=== PATIENT | female | born 1970 | race African-American/Black ===

== ENCOUNTER 2021-05-22 18:10 | Inpatient (IN) | payer MEDICAID, SELFPAY ==
--- NOTE | ~2021-05-22 | CT_ITS ---
EXAMINATION: CT ANGIOGRAM OF THE CHEST WITH AND WITHOUT CONTRAST (CT PULMONARY ANGIOGRAM FOR PE) CLINICAL INFORMATION: Syncopal episode. Shortness of breath. COMPARISON: None. TECHNIQUE: Prior to contrast administration, noncontrast localization images were obtained. Subsequently, multidetector volumetric imaging was performed from the thoracic inlet to below the diaphragms following the administration of 65 mL Isovue-300 intravenous contrast. No contrast reaction reported Sagittal, coronal, and MIP oblique sagittal reformatted images were obtained on the CT workstation, uploaded to PACS, and reviewed. This CT examination was performed using dose optimization techniques as appropriate, variously including the following: *Automated exposure control *Adjustment of mA and/or kV according to patient size (this includes techniques or standardized protocols for targeted exams where dose is matched to indication/reason for exam; i.e. extremities or head) *Use of iterative reconstruction technique Total exam dose-length product 309 mGy-cm FINDINGS: QUALITY OF STUDY/CONTRAST BOLUS: Satisfactory. PULMONARY ARTERIES: There are subtle segmental filling defects in the right lower lobe as identified for example on images 317, 298 and 272 of series 7. No central pulmonary emboli. THORACIC AORTA: No aneurysm or dissection. LUNG: There are multifocal groundglass opacities. For example as visualized in the right upper lobe on images 191, 210 and 215 of series 7. There are denser airspace opacities in the right lung base on image 345 of series 7. There are several areas of bronchial wall thickening with intrabronchial mucous secretions. There is mild paraseptal and centrilobular emphysema. A 3 mm pulmonary nodule in the right upper lobe on image 126 of series 7 appears to be intrabronchial and likely related with an area of mucus impaction. PLEURA: No pleural effusion or pneumothorax. MEDIASTINUM: Normal heart size. No pericardial effusion. Indeterminate soft tissue fullness in the anterior mediastinum, likely residual thymic tissue. No hilar or mediastinal lymphadenopathy. No evidence of septal bowing or right heart strain. CHEST WALL/AXILLA: No axillary or internal mammary lymphadenopathy. OSSEOUS STRUCTURES: No acute or suspicious osseous abnormality. UPPER ABDOMEN: Unremarkable. No reflux of contrast into the hepatic veins to suggest elevated right heart pressures. CT/CT angio chest PE protocol IMPRESSION: Multifocal airspace opacities predominantly involving the right lung with bronchial wall thickening and mucus impaction. These findings are concerning for a multifocal infectious or inflammatory process of the lungs with extension into the small airways. Subtle segmental pulmonary emboli in the right lower lobe. Mild centrilobular and paraseptal emphysema. VTE: positive This critical result was discussed with Shyam ZHANG at 05/22/2021 10:34 PM and it was ascertained that the content and urgency of the report was understood at the time of direct communication.
--- NOTE | ~2021-05-22 | XR_ITS ---
EXAMINATION: XR CHEST CLINICAL INFORMATION: Cough for one week with green phlegm COMPARISON: None TECHNIQUE: Frontal view of the chest was obtained. FINDINGS: No significant abnormality is noted involving the heart, lungs, mediastinum, bony thorax or soft tissues. IVC filter in abdomen. XR/XR chest 1V IMPRESSION: Unremarkable examination.
--- NOTE | ~2021-05-22 | US_ITS ---
EXAMINATION: US PELVIS CLINICAL INFORMATION: Check IUD placement COMPARISON: None TECHNIQUE: Transabdominal pelvic ultrasound was performed. Patient declined transvaginal exam. FINDINGS: The uterus is anteverted and measures 9.2 x 3.9 x 5.1 cm in dimension. No focal uterine lesion is seen. There is an IUD in the uterus in satisfactory position. Endometrial thickness is normal measuring 0.5 cm. The ovaries are normal-appearing. The right ovary measures 2.8 x 2.1 x 2.6 cm. The left ovary measures 3.2 x 1.5 x 2.9 cm. There is no fluid in the pelvis. US/US pelvic complete IMPRESSION: IUD in the uterus in satisfactory position.
--- NOTE | ~2021-05-22 | CT_ITS ---
EXAMINATION: CT HEAD WITHOUT CONTRAST CT CERVICAL SPINE WITHOUT CONTRAST CLINICAL INFORMATION: Syncopal episode heating head. Patient is on blood thinners. COMPARISON: No similar priors. TECHNIQUE: Contiguous axial imaging was performed from the skull base to vertex without intravenous administration of contrast. Contiguous axial imaging was performed from the upper chest through the skull base without intravenous administration of contrast. Coronal and sagittal reformats were obtained at the acquisition workstation. This CT examination was performed using dose optimization techniques as appropriate, variously including the following: *Automated exposure control *Adjustment of mA and/or kV according to patient size (this includes techniques or standardized protocols for targeted exams where dose is matched to indication/reason for exam; i.e. extremities or head) *Use of iterative reconstruction technique DLP: 291 mGy-cm FINDINGS: Head: There is no evidence of acute intracranial hemorrhage or edematous territorial infarction. There is no abnormal attenuation within the brain parenchyma. Hubbard-white matter differentiation is preserved. The ventricles are normal in size and configuration. No evidence for obstructive hydrocephalus. No abnormal mass effect or midline shift. No extra-axial fluid collections. There is a very small contusion in the left frontoparietal scalp on image 59 series 3, likely related with the site of injury. No acute osseous abnormalities. The mastoid air cells and paranasal sinuses are clear. Cervical Spine: The atlantooccipital and atlantoaxial articulations remain well aligned. Straightening of the normal cervical lordosis. Otherwise, there is anatomic alignment of the vertebral bodies and posterior elements. No evidence of acute fracture or subluxation. The vertebral body heights and disc spaces are maintained. There is mild disc space narrowing with prominent anterior osteophytes at C5, C6 and C7. There is no prevertebral soft tissue swelling. The thyroid gland and remaining cervical soft tissues are normal in appearance. The lung apices demonstrate no abnormalities. CT/CT cervical spine wo con IMPRESSION: No acute intracranial pathology. No acute cervical spinal traumatic sequela.
[2021-05-22 18:18] VITALS: BP 141/92; PULSE 84; RESP 18; TEMP 36.7; O2SAT 96; BMI 25.0
--- NOTE | 2021-05-22 18:42 | ECG_ITS ---
Test Reason : SYNCOPE Blood Pressure : / mmHG Vent. Rate : 074 BPM Atrial Rate : 074 BPM P-R Int : 156 ms QRS Dur : 076 ms QT Int : 390 ms P-R-T Axes : 074 066 054 degrees QTc Int : 432 ms Normal sinus rhythm Possible Left atrial enlargement Borderline ECG No previous ECGs available Referred By: Shyam Mcguire Electronically Signed By:KATARINA HAMM MD
--- NOTE | 2021-05-22 18:55 | ED.SYNCOPE ---
HPI - Syncope General Chief Complaint: Syncope Stated Complaint: near syncope Time Seen by Provider: 05/22/21 19:37 Source: patient Mode of arrival: ambulatory Limitations: no limitations History of Present Illness HPI narrative: 50-year-old male with past medical history of protein S deficiency, multiple PEs, has a Ernesto IVC filter due to multiple PEs, also taking Xarelto blood thinners, presents to ED for syncopal episode. Patient patien is from [facility] and had syncopal episode. Patient states she had bilateral methodist pain, chest pain, .fell, and than woke up to individuals looking at her. Patient denies any abdominal pain. Patient on complain for posterior head pain. Patient states also coughing for 1 week with green phlegm. Related Data Allergies Allergy/AdvReac Type Severity Reaction Status Date / Time No Known Allergies Allergy Verified 05/22/21 18:42 Review of Systems Review of Systems: Yes all other systems are reviewed and are negative Constitutional: Constitutional: Reports as per HPI, Reports no additional constitutional complaints and Reports headache(s) (Posterior head pain) Eyes: Eyes: Reports as per HPI and Reports no additional eye complaints ENT: Reports system reviewed and no additional complaints, except as documented, Reports as per HPI and Reports headache(s) (Posterior head pain) Cardiovascular: Cardiovascular: Reports as per HPI and Reports no additional cardiovascular complaints Respiratory: Respiratory: Reports as per HPI and Reports no additional respiratory complaints Gastrointestinal: Gastrointestinal: Reports as per HPI and Reports no additional gastrointestinal complaints Genitourinary: Genitourinary: Reports no additional female genitourinary complaints and Reports as per HPI Musculoskeletal: Musculoskeletal: Reports no additional musculoskeletal complaints and Reports as per HPI Neurologic: Reports system reviewed and no additional complaints, except as documented, Reports as per HPI and Reports headache(s) (Posterior head pain) Psychiatric: Psychiatric: Reports no additional psychiatric complaints and Reports as per HPI PMF Past Medical History Medical History (Updated 05/22/21 @ 23:55 by LEATHA Shine) GERD (gastroesophageal reflux disease) HIV (human immunodeficiency virus infection) HTN (hypertension) Surgical History (Updated 05/22/21 @ 18:20 by Venecia Schroeder) Previous section Social History Social History Advance Directives: No Advance Directives Information Provided: Yes Patient : No Physical Exam Vital Signs: Vital Signs: Last Vital Signs Temp 97.8 F 05/22/21 22:41 Pulse 76 05/22/21 22:41 Resp 18 05/22/21 22:41 BP 140/101 H 05/22/21 22:41 Pulse Ox 100 05/22/21 22:41 Body Mass Index 25.0 Const: General: cooperative, healthy appearing, comfortable, no acute distress, well developed, alert, awake and Physically active Orientation/consciousness: patient oriented x3 HENMT: Head: Yes normal to inspection, Yes No palpable skull fracture present, Yes normocephalic and Yes atraumatic Head images: 1. Tenderness on palpation. Negative for any hematoma, ecchymosis, laceration, or bleeding. Eyes: General: appearance normal, both eyes and all related structures Neck: Neck: Yes normal visual inspection, Yes full ROM, Yes no lymphadenopathy, Yes no meningeal signs, Yes trachea midline, Yes supple and No tender Chest: Chest palpation & inspection: normal inspection of the chest and normal palpation of entire chest wall Resp: Effort & Inspection: normal respiratory effort and able to speak in complete sentences Auscultation: clear to auscultation bilaterally Cardio: Jugular venous distension: no JVD Heart sounds: S1 normal heart sound present and S2 normal heart sound present GI: Inspection: Yes normal to inspection and No abdominal wall ecchymosis Palpation (GI): Soft to palpation, not firm, nontender, no guarding and not rigid : General: No CVA tenderness and Yes no CVA tenderness Back/Spine/Pelvis: Back: no CVA tenderness, No CVA tenderness and No back tenderness Skin: General skin exam: no rashes or lesions noted and elasticity normal Neuro: General: patient oriented x3, gait normal, no meningeal signs and CN's II-XI intact bilaterally Cranial nerves: Yes CN's II-XII intact bilaterally Extrem: Other: Extremity negative for swelling, pitting edema, or calf tenderness General: Yes normal to inspection and Yes full ROM Psych: Appearance: grossly normal, well kempt and not disheveled Course Course Course Narrative: Patient have imaging head and neck and cardiac enzyme gluten EKG. Reevaluation(s) Reevaluation #1: Due to history of protein S deficiency although patient has IVC filter and is on blood thinner she could still get a blood clot. Will try to get IV access for CTA Time: 20:35 Reevaluation #2: Patient refused further attempts at IV access for CTA. Doctors Dian want to speak to patient's try to convince her to alarms to put a testicular jugular vein IV access but patient refused. Patient educated possibility of from pulmonary embolus is a possibility of failed IV see filter and felt thrombolysis but patient refused. Patient willing to sign against medical advice. Patient refused admission Time: 20:36 Reevaluation #3: Patient changed her mind is agreeable with chest CTA. Positive for IV access. Additional Reevaluation(s): Patient admitted to the hospital for pneumonia and right-sided PE. Case discussed with Dr. Matthews recommend patient received antibiotics and Lovenox. MDM - Syncope MDM Narrative Medical decision making narrative: Syncope Lab Data Result diagrams: 05/22/21 19:40 05/22/21 19:40 Labs: Lab Results 05/22/21 05/22/21 05/22/21 Range/Units 19:40 19:40 19:40 WBC 3.6 L (4.8-10.8) X10*3/uL RBC 4.06 L (4.20-5.50) X10*6/uL Hgb 13.3 (12.0-16.0) g/dl Hct 39.2 (37.0-47.0) % MCV 96.6 (80.0-98.0) fL MCH 32.8 (27.0-33.0) pg MCHC 33.9 (31.0-35.0) g/dl RDW 11.8 (11.0-16.0) % Plt Count 288 (160-400) X10*3/uL MPV 10.3 (9.4-12.3) fL Immature Gran % (Auto) 0.3 (0.0-0.4) % Neut % (Auto) 30.5 L (45-73) % Lymph % (Auto) 59.9 H (20-40) % [place] % (Auto) 7.0 (2-11) % Eos % (Auto) 1.7 (0-4) % Baso % (Auto) 0.6 (0-2) % Lymph # (Auto) 2.2 (1.2-4.9) X10*3/uL [place] # (Auto) 0.3 (0.1-1.2) X10*3/uL Eos # (Auto) 0.1 (0.0-0.4) X10*3/uL Baso # (Auto) 0.0 (0.0-0.2) X10*3/uL Abs Immat Gran (auto) 0.01 (0.00-0.03) X10*3/uL Absolute Neuts (auto) 1.1 L (2.0-8.3) x10*3/uL Absolute Nucleated RBC 0.000 (0.0-0.012) X10*3/uL Nucleated RBC % (auto) 0.0 (0.0-0.2) /100WBC PT (9.9-13.0) SEC INR (0.9-1.1) APTT (24.1-38.0) SEC Sodium 138 (135-145) mmol/L Potassium 4.7 (3.3-5.1) mmol/L Chloride 99 (96-108) mmol/L Carbon Dioxide 32 H (22-29) mmol/L Anion Gap 12 (12-20) BUN 17 H (9-16) mg/dL Creatinine 1.07 (0.5-1.4) mg/dL Estim Creat Clear Calc 74.1 Estimated GFR 55 Random Glucose 89 (60-115) mg/dL Lactic Acid (0.5-2.0) mmol/L Calcium 9.6 (8.4-10.2) mg/dL Total Bilirubin 0.2 (0.0-1.0) mg/dL AST 19 (5-31) U/L ALT 19 (0-31) U/L Alkaline Phosphatase 85 (39-117) U/L Troponin I High Sens < 3.5 (<3.5-17.0) ng/L B-Natriuretic Peptide < 10 (<100) pg/mL Total Protein 9.2 H (6.5-8.0) g/dL Albumin 4.3 (3.5-5.0) g/dL COVID-19 (GONSALO) (Negative) COVID-19 Clin Com S. pyogenes GrpA ALTAGRACIA (Negative) 05/22/21 05/22/21 05/22/21 Range/Units 19:40 19:40 20:54 WBC (4.8-10.8) X10*3/uL RBC (4.20-5.50) X10*6/uL Hgb (12.0-16.0) g/dl Hct (37.0-47.0) % MCV (80.0-98.0) fL MCH (27.0-33.0) pg MCHC (31.0-35.0) g/dl RDW (11.0-16.0) % Plt Count (160-400) X10*3/uL MPV (9.4-12.3) fL Immature Gran % (Auto) (0.0-0.4) % Neut % (Auto) (45-73) % Lymph % (Auto) (20-40) % [place] % (Auto) (2-11) % Eos % (Auto) (0-4) % Baso % (Auto) (0-2) % Lymph # (Auto) (1.2-4.9) X10*3/uL [place] # (Auto) (0.1-1.2) X10*3/uL Eos # (Auto) (0.0-0.4) X10*3/uL Baso # (Auto) (0.0-0.2) X10*3/uL Abs Immat Gran (auto) (0.00-0.03) X10*3/uL Absolute Neuts (auto) (2.0-8.3) x10*3/uL Absolute Nucleated RBC (0.0-0.012) X10*3/uL Nucleated RBC % (auto) (0.0-0.2) /100WBC PT 12.0 (9.9-13.0) SEC INR 1.1 (0.9-1.1) APTT 40.1 H (24.1-38.0) SEC Sodium (135-145) mmol/L Potassium (3.3-5.1) mmol/L Chloride (96-108) mmol/L Carbon Dioxide (22-29) mmol/L Anion Gap (12-20) BUN (9-16) mg/dL Creatinine (0.5-1.4) mg/dL Estim Creat Clear Calc Estimated GFR Random Glucose (60-115) mg/dL Lactic Acid (0.5-2.0) mmol/L Calcium (8.4-10.2) mg/dL Total Bilirubin (0.0-1.0) mg/dL AST (5-31) U/L ALT (0-31) U/L Alkaline Phosphatase (39-117) U/L Troponin I High Sens (<3.5-17.0) ng/L B-Natriuretic Peptide (<100) pg/mL Total Protein (6.5-8.0) g/dL Albumin (3.5-5.0) g/dL COVID-19 (GONSALO) Negative (Negative) COVID-19 Clin Com See Note S. pyogenes GrpA ALTAGRACIA Negative (Negative) 05/22/21 Range/Units 23:13 WBC (4.8-10.8) X10*3/uL RBC (4.20-5.50) X10*6/uL Hgb (12.0-16.0) g/dl Hct (37.0-47.0) % MCV (80.0-98.0) fL MCH (27.0-33.0) pg MCHC (31.0-35.0) g/dl RDW (11.0-16.0) % Plt Count (160-400) X10*3/uL MPV (9.4-12.3) fL Immature Gran % (Auto) (0.0-0.4) % Neut % (Auto) (45-73) % Lymph % (Auto) (20-40) % [place] % (Auto) (2-11) % Eos % (Auto) (0-4) % Baso % (Auto) (0-2) % Lymph # (Auto) (1.2-4.9) X10*3/uL [place] # (Auto) (0.1-1.2) X10*3/uL Eos # (Auto) (0.0-0.4) X10*3/uL Baso # (Auto) (0.0-0.2) X10*3/uL Abs Immat Gran (auto) (0.00-0.03) X10*3/uL Absolute Neuts (auto) (2.0-8.3) x10*3/uL Absolute Nucleated RBC (0.0-0.012) X10*3/uL Nucleated RBC % (auto) (0.0-0.2) /100WBC PT (9.9-13.0) SEC INR (0.9-1.1) APTT (24.1-38.0) SEC Sodium (135-145) mmol/L Potassium (3.3-5.1) mmol/L Chloride (96-108) mmol/L Carbon Dioxide (22-29) mmol/L Anion Gap (12-20) BUN (9-16) mg/dL Creatinine (0.5-1.4) mg/dL Estim Creat Clear Calc Estimated GFR Random Glucose (60-115) mg/dL Lactic Acid 0.5 (0.5-2.0) mmol/L Calcium (8.4-10.2) mg/dL Total Bilirubin (0.0-1.0) mg/dL AST (5-31) U/L ALT (0-31) U/L Alkaline Phosphatase (39-117) U/L Troponin I High Sens (<3.5-17.0) ng/L B-Natriuretic Peptide (<100) pg/mL Total Protein (6.5-8.0) g/dL Albumin (3.5-5.0) g/dL COVID-19 (GONSALO) (Negative) COVID-19 Clin Com S. pyogenes GrpA ALTAGRACIA (Negative) ECG Data Interpretation: Normal sinus rhythm. Ventricular rate 74. Pr interval 156. QRS 76. QTC 432. Negative STEMI Critical Care Time Critical Care Time Critical Care Time: Yes Total Critical Care Time: 60 Attestation: Positive PE. Positive pneumonia. Case discussed with hospitalist. Lovenox and antibiotics ordered. Patient to be admitted Discharge Plan Discharge Clinical Impression: Syncope Qualifiers: Syncope type: unspecified Qualified Code(s): R55 - Syncope and collapse Patient Disposition: Admitted As Inpatient
[2021-05-22 19:45] LABS: MANUAL DIFF FLAG NO
[2021-05-22 19:46] LABS: Basophils Percent Auto 0.6 % (0-2); Eosinophils Absolute Auto 0.1 X10*3/uL (0.0-0.4); Eosinophils Percent Auto 1.7 % (0-4); Hematocrit 39.2 % (37.0-47.0); Hemoglobin 13.3 g/dl (12.0-16.0); Imm Gran Abs Auto 0.01 X10*3/uL (0.00-0.03); Imm Gran Pct Auto 0.3 % (0.0-0.4); Lymphocytes Absolute Auto 2.2 X10*3/uL (1.2-4.9); Lymphocytes Percent Auto 59.9 % (20-40); Mean Corpuscular HGB Conc 33.9 g/dl (31.0-35.0); Mean Corpuscular Hemoglobin 32.8 pg (27.0-33.0); Mean Corpuscular Volume 96.6 fL (80.0-98.0); Mean Platelet Volume 10.3 fL (9.4-12.3); Monocytes Absolute Auto 0.3 X10*3/uL (0.1-1.2); Neutrophils Absolute Auto 1.1 x10*3/uL (2.0-8.3); Neutrophils Percent Auto 30.5 % (45-73); Platelet Count 288 X10*3/uL (160-400); Red Blood Count 4.06 X10*6/uL (4.20-5.50); Red Cell Distribution Width 11.8 % (11.0-16.0); White Blood Count 3.6 X10*3/uL (4.8-10.8)
[2021-05-22 19:51] LABS: INTERNATIONAL NORM RATIO 1.1 (0.9-1.1)
[2021-05-22 19:54] LABS: Partial Thromboplastin Time 40.1 SEC (24.1-38.0)
[2021-05-22 20:00] LABS: COVID-19 Test Negative (Negative)
[2021-05-22 20:06] LABS: Alanine Aminotransferase 19 U/L (0-31); Albumin Level 4.3 g/dL (3.5-5.0); Alkaline Phosphatase 85 U/L (39-117); Anion Gap 12 (12-20); Aspartate Amino Transferase 19 U/L (5-31); B Type Natriuretic Peptide < 10 pg/mL (<100); Bilirubin Total 0.2 mg/dL (0.0-1.0); Blood Urea Nitrogen 17 mg/dL (9-16); Calcium 9.6 mg/dL (8.4-10.2); Carbon Dioxide 32 mmol/L (22-29); Chloride 99 mmol/L (96-108); Creatinine Clr Calc Pharmacy 74.1; Estimated Glomerular Filt Rate 55; Glucose Random 89 mg/dL (60-115); Potassium 4.7 mmol/L (3.3-5.1); Sodium 138 mmol/L (135-145); Total Protein 9.2 g/dL (6.5-8.0); Troponin-I High Sensitivity < 3.5 ng/L (<3.5-17.0)
[2021-05-22 21:05] LABS: IDNOW Serial# 9DD0AD1C; Strep A Nucleic Acid Negative (Negative)
[2021-05-22] MEDS: iohexoL 350 MG/ML 100 ML INFUS..BTL IV (21:52)
[2021-05-22 22:41] VITALS: BP 140/101; PULSE 76; RESP 18; TEMP 36.6; O2SAT 100
[2021-05-22] MEDS: LORazepam 1 MG TABLET PO (23:12)
--- NOTE | 2021-05-22 23:19 | PC.NURSE ---
Since I arrived the pt has been alert and oriented x 3, resting in hallway recliner with C-collar applied (until cleared by kiah foster). The pt has required being mvoed into a room in order to obtain ultrasound guided peripheral IV access in order to perform CTA. The pt initially refused to allow staff too attempt to place an IV and planned to sign out AMA. She eventually allowed us to try and peripheral IV via ultrasound was placed and CTA has been performed. the pt has been informed that she has PE and pneumonia and will require hospital admission. She has been tearful in response to this news. Ativan has been given and pt is currently resitng in [facility] recliner awaiting bed assignment.
--- NOTE | 2021-05-22 23:24 | P.HPHOSP_ITS ---
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 Patient reported that she has been feeling low and stressed; she went to the psychiatric place where suddenly felt chest discomfort/headache and fainted and fell onto her back and hit her head. denies any seizure-like activity. Episode lasted for few seconds. Denies any tongue bite or stool incontinence. Patient reports that she has been having cough with greenish to yellow sputum production for past 1 week; complains of chest discomfort with no associated symptoms. Patient currently denies any chest pain or palpitations. Denies any urinary symptoms. Denies any nausea vomiting diarrhea. Patient reports that she has been compliant with her home medications. she has IVC filter placed in the past. Of note patient reports that she was recently admitted to the [facility] on [facility] for a week because she was unable to walk and mentioned that all the tests came back negative. Currently denies any symptoms of unable to walk/neurological deficits. Review of all other systems is negative except mentioned above ER course: Per ER team patient's CT chest showed multifocal pneumonia/right segmental pulmonary embolism. Given antibiotics. EKG nonischemic. CT head and CT cervical spine showed no acute findings. Admitted for further management. [facility] Medical History (Updated 05/22/21 @ 23:55 by LEATHA Shine) GERD (gastroesophageal reflux disease) HIV (human immunodeficiency virus infection) HTN (hypertension) Pertinent family history: reviewed Surgical History (Updated 05/22/21 @ 18:20 by Venecia Schroeder) Previous section Social History Advance Directives: No Advance Directives Information Provided: Yes Patient : No Meds Allergies Allergy/AdvReac Type Severity Reaction Status Date / Time No Known Allergies Allergy Verified 05/22/21 18:42 Active Medications: Current Medications Azithromycin 500 mg/ Sodium (Chloride) 250 mls @ 125 mls/hr IV ONCE ONE Stop: 05/23/21 00:43 Physical Exam Vital Signs and Narrative: Vital Signs: Last Vital Signs Temp 97.8 F 05/22/21 22:41 Pulse 76 05/22/21 22:41 Resp 18 05/22/21 22:41 BP 140/101 H 05/22/21 22:41 Pulse Ox 100 05/22/21 22:41 Body Mass Index 25.0 Results Labs CBC and Chem 7: 05/23/21 00:08 05/22/21 19:40 Labs: Laboratory Results - last 24 hr 05/22/21 05/22/21 05/22/21 19:40 19:40 19:40 MCV 96.6 MCH 32.8 MCHC 33.9 RDW 11.8 Plt Count 288 MPV 10.3 Immature Gran % (Auto) 0.3 Neut % (Auto) 30.5 L Lymph % (Auto) 59.9 H [place] % (Auto) 7.0 Eos % (Auto) 1.7 Baso % (Auto) 0.6 Lymph # (Auto) 2.2 [place] # (Auto) 0.3 Eos # (Auto) 0.1 Baso # (Auto) 0.0 Abs Immat Gran (auto) 0.01 Absolute Neuts (auto) 1.1 L Absolute Nucleated RBC 0.000 Nucleated RBC % (auto) 0.0 PT INR APTT Anion Gap 12 Estim Creat Clear Calc 74.1 Estimated GFR 55 Random Glucose 89 Calcium 9.6 Total Bilirubin 0.2 AST 19 ALT 19 Alkaline Phosphatase 85 Troponin I High Sens < 3.5 B-Natriuretic Peptide < 10 Total Protein 9.2 H Albumin 4.3 COVID-19 (GONSALO) COVID-19 Clin Com S. pyogenes GrpA ALTAGRACIA 05/22/21 05/22/21 05/22/21 19:40 19:40 20:54 MCV MCH MCHC RDW Plt Count MPV Immature Gran % (Auto) Neut % (Auto) Lymph % (Auto) [place] % (Auto) Eos % (Auto) Baso % (Auto) Lymph # (Auto) [place] # (Auto) Eos # (Auto) Baso # (Auto) Abs Immat Gran (auto) Absolute Neuts (auto) Absolute Nucleated RBC Nucleated RBC % (auto) PT 12.0 INR 1.1 APTT 40.1 H Anion Gap Estim Creat Clear Calc Estimated GFR Random Glucose Calcium Total Bilirubin AST ALT Alkaline Phosphatase Troponin I High Sens B-Natriuretic Peptide Total Protein Albumin COVID-19 (GONSALO) Negative COVID-19 Clin Com See Note S. pyogenes GrpA ALTAGRACIA Negative Imaging Radiologist's Impressions: Impressions Cervical Spine CT 05/22/21 18:42 IMPRESSION: No acute intracranial pathology. No acute cervical spinal traumatic sequela. Chest X-Ray 05/22/21 18:42 IMPRESSION: Unremarkable examination. Head CT 05/22/21 18:42 IMPRESSION: No acute intracranial pathology. No acute cervical spinal traumatic sequela. Chest CTA 05/22/21 21:07 IMPRESSION: Multifocal airspace opacities predominantly involving the right lung with bronchial wall thickening and mucus impaction. These findings are concerning for a multifocal infectious or inflammatory process of the lungs with extension into the small airways. Subtle segmental pulmonary emboli in the right lower lobe. Mild centrilobular and paraseptal emphysema. VTE: positive This critical result was discussed with Shyam ZHANG at 05/22/2021 10:34 PM and it was ascertained that the content and urgency of the report was understood at the time of direct communication. 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 Syncope: CT head and CT cervical spine showed no acute findings; exam nonfocal. Echocardiogram Telemetry Cycle cardiac enzymes Fall precautions Orthostatic vitals Chest pain: EKG nonischemic. Troponins negative. Currently improved. Pulmonary embolism: Patient had prior history of recurrent PEs/known history of protein S deficiency. Status post IVC filter placed. Was on Xarelto-> will hold. Start the patient with Lovenox at therapeutic dose. Hematology consult for further input. Multifocal pneumonia (HCAP): COVID-19 negative. iv Vanc and zosyn. Id consult. History of HIV: Continue home medications. Will defer to the ID for CD4 check. Patient reports that she is complaint with her medications and viral load was undetectable. Feeling Low/Stress: Patient wanted to speak to psychiatrist All other chronic conditions, home medications will be continued DVT prophylaxis: Patient on systemic anticoagulation Code status: Full code Quality Stroke Does the patient have a stroke diagnosis?: No VTE Prior VTE?: Yes VTE Risk Level:: Medical - moderate - high VTE Device Contraindication: Treatment Not Indicated VTE Drug Contraindication: N/A - Med Ordered
[2021-05-22 23:29] LABS: Lactic Acid 0.5 mmol/L (0.5-2.0)
[2021-05-22 23:57] LABS: Troponin-I High Sensitivity < 3.5 ng/L (<3.5-17.0)
[2021-05-23] VITALS (7 sets, daily range): BP systolic 111–134; BP diastolic 64–95; PULSE 64–86; RESP 14–18; TEMP 36.1–36.6; O2SAT 97–100
[2021-05-23] MEDS: cefTRIAXone sodium 1 GM in 0.9 % Sodium Chloride 50 ML IV (00:07)
--- NOTE | 2021-05-23 00:10 | PC.NURSE ---
provider in to discuss Ij and placement. IJ placed to the left side of her neck. medicated per Sep.
[2021-05-23 00:13] LABS: Hematocrit 36.8 % (37.0-47.0); Hemoglobin 12.4 g/dl (12.0-16.0); Mean Corpuscular HGB Conc 33.7 g/dl (31.0-35.0); Mean Corpuscular Hemoglobin 32.1 pg (27.0-33.0); Mean Corpuscular Volume 95.3 fL (80.0-98.0); Platelet Count 282 X10*3/uL (160-400); Red Blood Count 3.86 X10*6/uL (4.20-5.50); Red Cell Distribution Width 11.5 % (11.0-16.0)
[2021-05-23] MEDS: Enoxaparin Sodium 80 MG/0.8 ML SYRINGE SUBCUT (00:14)
[2021-05-23] MEDS: LORazepam 1 MG TABLET PO (00:18)
[2021-05-23 00:20] LABS: INTERNATIONAL NORM RATIO 1.1 (0.9-1.1); Prothrombin Time 12.1 SEC (9.9-13.0)
[2021-05-23] MEDS: Azithromycin 500 MG in 0.9 % Sodium Chloride 250 ML 125 MG IV (00:37)
--- NOTE | 2021-05-23 00:42 | PC.NURSE ---
The pt is to be admitted for PE and pneumonia and she verbalizes an understanding of this. She has been intermittently tearful since learning of this. She has been given ativan 1mg PO x 2 due to increased anxiety and tearfulness. Pt has been given phone to call family memebrs to inform them of her hospital admission. I spoke with RN from [facility] who was informed of the patients' admission and diagnosis and she states she will notify patients' family.
--- NOTE | 2021-05-23 00:43 | PC.NURSE ---
pt a&o, denies any sob or chest pain. IJ intact and medicated per Sep. Pt on the phone with family member. Call keen with in reach.
[2021-05-23] MEDS: 0.9 % Sodium Chloride Flush 3 ML SYRINGE IVFLUSH ×2 (01:11→19:41)
[2021-05-23] MEDS: Enoxaparin Sodium 100 MG/ML SYRINGE 85 MG SUBCUT ×2 (01:11→11:46)
--- NOTE | 2021-05-23 01:50 | PC.NURSE ---
The pt is not from this area - unable to verify home meds at this time. Med rec consult order placed for morning.
[2021-05-23] MEDS: 0.9 % Sodium Chloride 1,000 ML 100 ML IVCONT ×2 (03:15→10:36)
--- NOTE | 2021-05-23 04:44 | PC.NURSE ---
Estella attempted twice tonight to obtIN AN ACCURATE MEDICATION LIST FOR THIS PATIENT. shE INFORMED ME [facility] [facility] [place] AND THAT THEY ARE A 24 HOUR PHARMACY. hOWVER, STAFF FROM THE PHARMACY DO NOT ANSWER THE PHONE. i HAVE TRIED X 2.
--- NOTE | 2021-05-23 05:15 | PC.NURSE ---
The pt rang her call keen and requested medications for sore throat and headache. She states its too painful to swallowq, I need something more than Tylenol and I dont want to swallow a pill. Soon after the pt fell asleep - I did not wake here but will continue to monitor her and will assess her pain when she wakes.
--- NOTE | 2021-05-23 06:50 | PC.NURSE ---
The pt woke and requested medicines for headache and throat pain. Again she was offered Tylenol and refused, stating that wont do anything for me. I need to talk to the doctor. I paged the pt's hospitalist via tiger text and spoke with him and he states he will place an order for Oxycodone. Pt aware, awaiting order.
--- NOTE | 2021-05-23 08:31 | PC.NURSE ---
pt c/o pain, made aware. no new orders at this time.
--- NOTE | 2021-05-23 08:35 | PC.NURSE ---
pt helped to commode. pt asking to speak to MD immediately about being transferred to a different hospital because she does not like her care. when asked why she wanted to be transferred she stated that she hasn't gotten any pain medication for her throat/ears/PE. MD made aware.
[2021-05-23] MEDS: oxyCODONE HCl Immed Release 5 MG TABLET PO ×2 (08:48→19:40)
--- NOTE | 2021-05-23 09:35 | PC.NURSE ---
0930 MD at bedside pt wanting to leave AMA.
--- NOTE | 2021-05-23 09:36 | PC.NURSE ---
pt agreeable to stay after speaking with MD. Per MD, orders for pain and anxiety medication to be put in.
[2021-05-23] MEDS: Morphine Sulfate 4 MG/ML CARTRIDGE IVPUSH ×3 (09:48→17:46)
[2021-05-23] MEDS: LORazepam 2 MG/ML VIAL 0.5 MG IVPUSH (09:48)
--- NOTE | 2021-05-23 10:16 | PC.NURSE ---
psychiatry speaking with pt at this time
--- NOTE | 2021-05-23 10:40 | MHC.CARE ---
CARE Team made aware that pt is coming from [facility] at [facility]. 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 She has a signifcant hx of past attempts. CARE Team should be consulted once pt is medically cleared.
[2021-05-23 10:46] LABS: Anion Gap 14 (12-20); Blood Urea Nitrogen 14 mg/dL (9-16); Calcium 10.2 mg/dL (8.4-10.2); Carbon Dioxide 27 mmol/L (22-29); Chloride 101 mmol/L (96-108); Creatinine Clr Calc Pharmacy 93.3; Estimated Glomerular Filt Rate > 60; Glucose Random 95 mg/dL (60-115); Potassium 4.8 mmol/L (3.3-5.1); Sodium 137 mmol/L (135-145)
[2021-05-23] MEDS: buPROPion HCl XL 150 MG TAB.ER.24H PO (11:46)
[2021-05-23] MEDS: hydrOXYzine HCL 50 MG TABLET PO ×2 (11:46→19:53)
[2021-05-23] MEDS: diazePAM 5 MG TABLET 10 MG PO ×2 (11:46→19:49)
[2021-05-23] MEDS: Docusate Sodium 100 MG CAPSULE PO ×2 (11:47→19:39)
[2021-05-23] MEDS: Throat Lozenge, Medicated LOZENGE 1 LOZENGE MUCOUS MEM ×2 (11:47→19:40)
--- NOTE | 2021-05-23 12:31 | PC.NURSE ---
pt ate a sandwich and took pills with no problems swallowing.
--- NOTE | 2021-05-23 12:51 | MHC.CM.PN ---
Addendum entered by Raquel Kearney 05/23/21 12:56: PCP is Dr Schuster in [place]. Original Note: Attempted to meet with patient in regards to discharge planning. Patient is currently sleeping. Case management assessment completed using medical record. Patient was recently at [facility] in [place]. Patient was discharged to [facility] inpatient psych. While there, patient can a syncopal episode and was transferred to [facility]. Per Wilma in psych, patient will return to [facility] when medically stable. Copy of HCP obtained and placed in chart. BLS transport will be needed. Continue to monitor for d/c needs.
--- NOTE | 2021-05-23 14:21 | P.PNIM_ITS ---
Subjective Subjective Date of Service: 05/23/21 Interval History: Patient seen and examined at bedside. She is crying in pain, is very unhappy, she wanted to leave [place] and go to her own Hospital in [place]. She reports that she is not happy with the care she has been in a lot of pain and has been waiting to receive pain medications. She is complaining of pain in her neck, as well as difficulty swallowing. She is worried that she is continuing to get clots even though she is on anticoagulants as well as has an IVC filter. She otherwise denies any chest pain, no abdominal pain, no nausea or vomiting, no diarrhea constipation, no lower extremity swelling. Review of Systems Review of Systems: Yes all other systems are reviewed and are negative Physical Exam Vital Signs: Vital Signs: Last Vital Signs Temp 98 F 05/23/21 00:55 Pulse 68 05/23/21 12:22 Resp 14 05/23/21 12:22 BP 132/64 05/23/21 05:23 Pulse Ox 97 05/23/21 05:23 Body Mass Index 25.0 Const: General: cooperative and no acute distress Orientation/consciousness: patient oriented x3 HENMT: Other: neck is soft, subtle, no drooling, no palpable mass Eyes: Pupils: Equal, round and reactive pupils present Resp: Other: No difficulty with respiration Effort & Inspection: normal respiratory effort Auscultation: clear to auscultation bilaterally Cardio: Rate: regular rate Rhythm: regular rhythm GI: Palpation (GI): Soft to palpation Auscultation: normal bowel sounds Neuro: General: patient oriented x3 Cranial nerves: Yes Equal, round and reactive pupils present Cognition (Neuro): normal cognition Extrem: General: Yes normal to inspection and Yes no pedal edema Psych: Other: very anxious, crying, Objective Data Active Medications Acetaminophen (Acetaminophen 325 Mg Tablet) 650 mg PO Q6H PRN PRN Reason: Pain, Mild (Pain Scale 1-3) Amphetamine/Dextroamphetamine (Dextroamphetamine/Amphetamine Xr 10 Mg Cap.Er.24h) 30 mg PO BEDTIME [facility] Atovaquone (Atovaquone 750 Mg/5 Ml Oral.Susp) 750 mg PO BID [facility] Benzocaine (Throat Lozenge, Medicated Lozenge) 1 lozenge MUCOUS MEM Q2H PRN PRN Reason: Sore Throat Last Admin: 05/23/21 11:47 Dose: 1 lozenge Documented by: MARLON Bupropion HCl (Bupropion Hcl Xl 150 Mg Tab.Er.24h) 150 mg PO DAILY [facility] Last Admin: 05/23/21 11:46 Dose: 150 mg Documented by: MARLON Diazepam (Diazepam 5 Mg Tablet) 10 mg PO BID PRN PRN Reason: Anxiety Last Admin: 05/23/21 11:46 Dose: 10 mg Documented by: MARLON Docusate Sodium (Docusate Sodium 100 Mg Capsule) 100 mg PO BID [facility] Last Admin: 05/23/21 11:47 Dose: 100 mg Documented by: MARLON Doxepin HCl (Doxepin Hcl 10 Mg Capsule) 10 mg PO DAILY PRN PRN Reason: Sleep Doxycycline Hyclate (Doxycycline Hyclate 100 Mg Tablet) 100 mg PO Q12H [facility] Enoxaparin Sodium (Enoxaparin Sodium 100 Mg/Ml Syringe) 85 mg SUBCUT Q12H [facility] Last Admin: 05/23/21 11:46 Dose: 85 mg Documented by: MARLON Hydroxyzine HCl (Hydroxyzine Hcl 50 Mg Tablet) 50 mg PO TID PRN PRN Reason: Anxiety Last Admin: 05/23/21 11:46 Dose: 50 mg Documented by: MARLON Sodium Chloride (Ns) 1,000 mls @ 100 mls/hr IVCONT .Q10H [facility] Last Admin: 05/23/21 10:36 Dose: 100 mls/hr Documented by: MARLON Lurasidone HCl (Lurasidone Hcl 40 Mg Tablet) 40 mg PO BEDTIME [facility] Melatonin (Melatonin 3 Mg Tablet) 6 mg PO BEDTIME PRN PRN Reason: Insomnia Morphine Sulfate (Morphine Sulfate 4 Mg/Ml Cartridge) 4 mg IVPUSH Q4H PRN; Protocol PRN Reason: Pain, Severe (Pain Scale 7-10) Last Admin: 05/23/21 13:46 Dose: 4 mg Documented by: MARLON Oxycodone HCl (Oxycodone Hcl Immed Release 5 Mg Tablet) 5 mg PO Q4H PRN PRN Reason: Pain, Severe (Pain Scale 7-10) Last Admin: 05/23/21 08:48 Dose: 5 mg Documented by: MARLON Pharmacy Consult (Consult Rx Perform Med Rec) 1 each MISCELLANE ONCE PRN PRN Reason: Consult order Senna (Sennosides 8.6 Mg Tablet) 17.2 mg PO BEDTIME PRN PRN Reason: Constipation Sodium Chloride (0.9 % Sodium Chloride Flush 3 Ml Syringe) 3 ml IVFLUSH QSHIFT [facility] Last Admin: 05/23/21 08:00 Dose: Not Given Documented by: MARLON Non-Admin Reason: IV Running Valacyclovir HCl (Valacycyclovir Hcl 500 Mg Tablet) 500 mg PO BID [facility] Last Admin: 05/23/21 11:56 Dose: 500 mg Documented by: MARLON Labs CBC & Chem 7: 05/23/21 00:08 05/23/21 09:51 Labs: Laboratory Results - last 24 hr 05/22/21 05/22/21 05/22/21 19:40 19:40 19:40 MCV 96.6 MCH 32.8 MCHC 33.9 RDW 11.8 Plt Count 288 MPV 10.3 Immature Gran % (Auto) 0.3 Neut % (Auto) 30.5 L Lymph % (Auto) 59.9 H [place] % (Auto) 7.0 Eos % (Auto) 1.7 Baso % (Auto) 0.6 Lymph # (Auto) 2.2 [place] # (Auto) 0.3 Eos # (Auto) 0.1 Baso # (Auto) 0.0 Abs Immat Gran (auto) 0.01 Absolute Neuts (auto) 1.1 L Absolute Nucleated RBC 0.000 Nucleated RBC % (auto) 0.0 PT INR APTT Anion Gap 12 Estim Creat Clear Calc 74.1 Estimated GFR 55 Random Glucose 89 Lactic Acid Calcium 9.6 Total Bilirubin 0.2 AST 19 ALT 19 Alkaline Phosphatase 85 Troponin I High Sens < 3.5 B-Natriuretic Peptide < 10 Total Protein 9.2 H Albumin 4.3 COVID-19 ([facility]) COVID-19 Clin Com S. pyogenes GrpA ALTAGRACIA 05/22/21 05/22/21 05/22/21 19:40 19:40 20:54 MCV MCH MCHC RDW Plt Count MPV Immature Gran % (Auto) Neut % (Auto) Lymph % (Auto) [place] % (Auto) Eos % (Auto) Baso % (Auto) Lymph # (Auto) [place] # (Auto) Eos # (Auto) Baso # (Auto) Abs Immat Gran (auto) Absolute Neuts (auto) Absolute Nucleated RBC Nucleated RBC % (auto) PT 12.0 INR 1.1 APTT 40.1 H Anion Gap Estim Creat Clear Calc Estimated GFR Random Glucose Lactic Acid Calcium Total Bilirubin AST ALT Alkaline Phosphatase Troponin I High Sens B-Natriuretic Peptide Total Protein Albumin COVID-19 ([facility]) Negative COVID-19 Clin Com See Note S. pyogenes GrpA ALTAGRACIA Negative 05/22/21 05/22/21 05/23/21 23:13 23:13 00:08 MCV 95.3 MCH 32.1 MCHC 33.7 RDW 11.5 Plt Count 282 MPV 10.0 Immature Gran % (Auto) Neut % (Auto) Lymph % (Auto) [place] % (Auto) Eos % (Auto) Baso % (Auto) Lymph # (Auto) [place] # (Auto) Eos # (Auto) Baso # (Auto) Abs Immat Gran (auto) Absolute Neuts (auto) Absolute Nucleated RBC 0.000 Nucleated RBC % (auto) 0.0 PT INR APTT Anion Gap Estim Creat Clear Calc Estimated GFR Random Glucose Lactic Acid 0.5 Calcium Total Bilirubin AST ALT Alkaline Phosphatase Troponin I High Sens < 3.5 B-Natriuretic Peptide Total Protein Albumin COVID-19 ([facility]) COVID-19 Clin Com S. pyogenes GrpA ALTAGRACIA 05/23/21 05/23/21 00:08 09:51 MCV MCH MCHC RDW Plt Count MPV Immature Gran % (Auto) Neut % (Auto) Lymph % (Auto) [place] % (Auto) Eos % (Auto) Baso % (Auto) Lymph # (Auto) [place] # (Auto) Eos # (Auto) Baso # (Auto) Abs Immat Gran (auto) Absolute Neuts (auto) Absolute Nucleated RBC Nucleated RBC % (auto) PT 12.1 INR 1.1 APTT 37.0 Anion Gap 14 Estim Creat Clear Calc 93.3 Estimated GFR > 60 Random Glucose 95 Lactic Acid Calcium 10.2 D Total Bilirubin AST ALT Alkaline Phosphatase Troponin I High Sens B-Natriuretic Peptide Total Protein Albumin COVID-19 ([facility]) COVID-19 Clin Com S. 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 Patient reports that she was standing upright when all of a sudden she developed a sudden loss of consciousness, and fell straight on her back hitting her head. She appar ently was at a psychiatric hospital inpatient. Workup in the ED showed the patient has a segmental PE as well as multifocal pneumonia. # syncope - most likely multifactorial secondary to PE versus vasovagal - will treat her PE with IV Lovenox - troponin negative x2, no EKG changes or significantly prolonged QTC - continue to monitor on telemetry # multifocal pneumonia - COVID negative - start on IV antibiotics will continue - follow cultures - will order full viral panel - infectious disease consulted # PE - patient was on Xarelto as well as has an IVC filter - has history of protein S deficiency - at this time will continue therapeutic Lovenox - Hematology-Oncology consulted, pending further recommendation # neck pain - no evidence of injury on cervical CT - no evidence of soft tissue abnormality - has no difficulty breathing, no drooling - will continue pain medication # mood disorder - psychiatry consulted - continue home medications - med adjustment per psychiatry DVT prophylaxis: Lovenox Quality Stroke Does the patient have a stroke diagnosis?: No VTE Prior VTE?: Yes VTE Risk Level:: Medical - moderate - high VTE Device Contraindication: Treatment Not Indicated VTE Drug Contraindication: N/A - Med Ordered
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
[2021-05-23] MEDS: Lurasidone HCl 40 MG TABLET PO (19:39)
[2021-05-23] MEDS: Atovaquone 750 MG/5 ML ORAL.SUSP PO (19:40)
[2021-05-23] MEDS: Melatonin 3 MG TABLET 6 MG PO (19:48)
[2021-05-23] MEDS: Doxepin HCl 10 MG CAPSULE PO (19:53)
--- NOTE | 2021-05-23 21:39 | P.CNID_ITS ---
History of Present Illness Data of Consult Service Date: 05/23/21 Requesting physician: Ruslan Torrez Primary Care Provider: Unknown Physician HPI Reason for consult: syncope [facility] She has occasional chest and neck pain. She has neck discomfort and some dysphagia She is very vague and irritable. She says she has HIV retirement and has possibly been on Dovato. She says she has been seeing ID doctor who is solo at [facility] in [place]. I called there and looked for the doctor Jason Kuo but he was not there today. She has h/o PE and Ernesto filter. CXR is negative. She said she had cough and yellowish sputum one week ago and took old antibiotics at home CT chest shows small PE as well as bronchiectasis and COPD concern and no lobar infiltrates. Review of Systems Review of Systems: Yes all other systems are reviewed and are negative PMF Past Medical History Medical History (Updated 05/23/21 @ 21:48 by Stephanie Doty MD) Bronchiectasis GERD (gastroesophageal reflux disease) HIV (human immunodeficiency virus infection) HIV (human immunodeficiency virus infection) HTN (hypertension) Family History Family history: reviewed and not pertinent Surgical History Surgical History Previous section Social History Social History Household Members: None Housing: House Do you presently have visiting nurse or other home services: Yes Patient Tobacco Use Status: Former Tobacco user service: No Current occupational status: disabled Meds Allergies Allergy/AdvReac Type Severity Reaction Status Date / Time No Known Allergies Allergy Verified 05/22/21 18:42 Active Medications: Current Medications Acetaminophen (Acetaminophen 325 Mg Tablet) 650 mg PO Q6H PRN PRN Reason: Pain, Mild (Pain Scale 1-3) Amphetamine/Dextroamphetamine (Dextroamphetamine/Amphetamine Xr 10 Mg Cap.Er.24h) 30 mg PO DAILY TERRE[facility] Atovaquone (Atovaquone 750 Mg/5 Ml Oral.Susp) 750 mg PO BID [facility] Last Admin: 05/23/21 19:40 Dose: 750 mg Documented by: Benzocaine (Throat Lozenge, Medicated Lozenge) 1 lozenge MUCOUS MEM Q2H PRN PRN Reason: Sore Throat Last Admin: 05/23/21 19:40 Dose: 1 lozenge Documented by: Bupropion HCl (Bupropion Hcl Xl 150 Mg Tab.Er.24h) 150 mg PO DAILY [facility] Last Admin: 05/23/21 11:46 Dose: 150 mg Documented by: Diazepam (Diazepam 5 Mg Tablet) 10 mg PO BID PRN PRN Reason: Anxiety Last Admin: 05/23/21 19:49 Dose: 10 mg Documented by: Docusate Sodium (Docusate Sodium 100 Mg Capsule) 100 mg PO BID [facility] Last Admin: 05/23/21 19:39 Dose: 100 mg Documented by: Doxepin HCl (Doxepin Hcl 10 Mg Capsule) 10 mg PO DAILY PRN PRN Reason: Sleep Last Admin: 05/23/21 19:53 Dose: 10 mg Documented by: Doxycycline Hyclate (Doxycycline Hyclate 100 Mg Tablet) 100 mg PO Q12H [facility] Last Admin: 05/23/21 17:46 Dose: 100 mg Documented by: Enoxaparin Sodium (Enoxaparin Sodium 100 Mg/Ml Syringe) 85 mg SUBCUT Q12H [facility] Last Admin: 05/23/21 11:46 Dose: 85 mg Documented by: Hydroxyzine HCl (Hydroxyzine Hcl 50 Mg Tablet) 50 mg PO TID PRN PRN Reason: Anxiety Last Admin: 05/23/21 19:53 Dose: 50 mg Documented by: Sodium Chloride (Ns) 1,000 mls @ 100 mls/hr IVCONT .Q10H [facility] Last Admin: 05/23/21 10:36 Dose: 100 mls/hr Documented by: Lurasidone HCl (Lurasidone Hcl 40 Mg Tablet) 40 mg PO BEDTIME [facility] Last Admin: 05/23/21 19:39 Dose: 40 mg Documented by: Melatonin (Melatonin 3 Mg Tablet) 6 mg PO BEDTIME PRN PRN Reason: Insomnia Last Admin: 05/23/21 19:48 Dose: 6 mg Documented by: Morphine Sulfate (Morphine Sulfate 4 Mg/Ml Cartridge) 4 mg IVPUSH Q4H PRN; Protocol PRN Reason: Pain, Severe (Pain Scale 7-10) Last Admin: 05/23/21 17:46 Dose: 4 mg Documented by: Oxycodone HCl (Oxycodone Hcl Immed Release 5 Mg Tablet) 5 mg PO Q4H PRN PRN Reason: Pain, Severe (Pain Scale 7-10) Last Admin: 05/23/21 19:40 Dose: 5 mg Documented by: Pharmacy Consult (Consult Rx Perform Med Rec) 1 each MISCELLANE ONCE PRN PRN Reason: Consult order Senna (Sennosides 8.6 Mg Tablet) 17.2 mg PO BEDTIME PRN PRN Reason: Constipation Sodium Chloride (0.9 % Sodium Chloride Flush 3 Ml Syringe) 3 ml IVFLUSH QSHIFT [facility] Last Admin: 05/23/21 19:41 Dose: 3 ml Documented by: Valacyclovir HCl (Valacycyclovir Hcl 500 Mg Tablet) 500 mg PO BID [facility] Last Admin: 05/23/21 11:56 Dose: 500 mg Documented by: Home Medications Medication Instructions Recorded Confirmed Last Taken Type bupropion HCl 100 mg tablet,12 hr 1 tab PO BID 05/23/21 05/23/21 Unknown History sustained-release dextroamphetamine-amphetamine ER 1 cap PO BEDTIME 05/23/21 05/23/21 Unknown History 30 mg 24hr capsule,extend release (Adderall XR) diazepam 10 mg tablet 1 tab PO BID PRN 05/23/21 05/23/21 Unknown History docusate sodium 100 mg capsule 1 cap PO BID 05/23/21 05/23/21 Unknown History doxepin 10 mg capsule 10 mg PO DAILY PRN 05/23/21 05/23/21 Unknown History hydroxyzine pamoate 50 mg capsule 1 cap PO TID PRN 05/23/21 05/23/21 Unknown History lurasidone 40 mg tablet (Latuda) 1 tab PO BEDTIME 05/23/21 05/23/21 Unknown History rivaroxaban 20 mg tablet (Xarelto) 1 tab PO BEDTIME 05/23/21 05/23/21 Unknown History valacyclovir 500 mg tablet 500 mg PO BID 05/23/21 05/23/21 Unknown History Physical Exam Vital Signs: Vital Signs: Last Vital Signs Temp 97 F 05/23/21 19:28 Pulse 64 05/23/21 19:28 Resp 15 05/23/21 19:28 BP 126/80 05/23/21 19:28 Pulse Ox 99 05/23/21 19:28 Body Mass Index 25.0 Const: General: cooperative (not very cooperative) and alert Orientation/consciousness: oriented to person Eyes: General: appearance normal, both eyes and all related structures Resp: Effort & Inspection: normal respiratory effort Cardio: Rate: regular rate Rhythm: regular rhythm GI: Palpation (GI): Soft to palpation and nontender Neuro: General: oriented to person Extrem: General: Yes normal to inspection Results Labs CBC & Chem 7: 05/23/21 00:08 05/23/21 09:51 Labs: Short CBC 05/23/21 Range/Units 00:08 WBC 4.0 L (4.8-10.8) X10*3/uL Hgb 12.4 (12.0-16.0) g/dl Hct 36.8 L (37.0-47.0) % Plt Count 282 (160-400) X10*3/uL BMP 05/23/21 09:51 Sodium 137 Potassium 4.8 Chloride 101 Carbon Dioxide 27 BUN 14 Creatinine 0.85 Calcium 10.2 D Assessment and Plan (1) Pulmonary embolism: Status: Acute (2) HIV (human immunodeficiency virus infection): Status: Acute (3) Bronchiectasis: Status: Acute possible atypical or PJP infection (not sure CD4 count) Po Doxycycline or Levaquin and Mepron for 10 d Check CD4 count Will try contact patient doctor also
[2021-05-24] MEDS: oxyCODONE HCl Immed Release 5 MG TABLET PO ×3 (00:01→18:48)
[2021-05-24] MEDS: Enoxaparin Sodium 100 MG/ML SYRINGE 85 MG SUBCUT ×3 (00:02→22:05)
[2021-05-24] MEDS: 0.9 % Sodium Chloride 1,000 ML 100 ML IVCONT ×3 (00:07→20:09)
--- NOTE | 2021-05-24 01:53 | PC.NURSE ---
pt denies suicidal/homicidal thoughts and contracts for safety for this 12 hr shift. 1:1 sitter and bedside and suicidal precautions maintained. c/o back head pain, medicated with roxicodone 5mg po as she states morphine is ineffective. requests dilaudid - Dr. Matthews notified and new order for dilaudid iv prn pain however s/p oxicodone, pt sleeping. extensive psych meds administered as ordered (see emar).
[2021-05-24 04:00] VITALS: BP 109/68; PULSE 60; RESP 18; TEMP 36.6; O2SAT 100
[2021-05-24] MEDS: HYDROmorphone HCl 0.5 MG/0.5 ML SYRINGE IVPUSH ×4 (04:36→20:11)
[2021-05-24] MEDS: Throat Lozenge, Medicated LOZENGE 1 LOZENGE MUCOUS MEM ×3 (05:50→15:51)
[2021-05-24 07:37] VITALS: BP 97/65; PULSE 69; RESP 18; TEMP 36.4; O2SAT 99
[2021-05-24 08:44] VITALS: BP 110/72
[2021-05-24] MEDS: Docusate Sodium 100 MG CAPSULE PO ×2 (08:51→20:20)
[2021-05-24] MEDS: Atovaquone 750 MG/5 ML ORAL.SUSP PO ×2 (08:51→20:14)
[2021-05-24] MEDS: Dextroamphetamine/Amphetamine XR 10 MG CAP.ER.24H 30 MG PO (08:51)
[2021-05-24] MEDS: buPROPion HCl XL 150 MG TAB.ER.24H PO (08:51)
[2021-05-24 11:32] VITALS: BP 118/78; PULSE 83; RESP 18; TEMP 36; O2SAT 98
[2021-05-24 11:39] VITALS: BMI 25.0
--- NOTE | 2021-05-24 15:25 | HO.PM.IMPN ---
Subjective Subjective Date of Service: 05/24/21 Interval History: seen and examined this morning brought in from [facility] psych for syncope and found to have pneumonia and PE ongoing cough, some pleuritic chest pain, no fever, chills Review of Systems Review of Systems: Yes all other systems are reviewed and are negative Constitutional Constitutional: Denies chills and Denies fever(s) Respiratory Respiratory: Reports cough Gastrointestinal Gastrointestinal: Denies abdominal pain Physical Exam Vital Signs: Vital Signs: Last Vital Signs Temp 96.8 F 05/24/21 11:32 Pulse 83 05/24/21 11:32 Resp 18 05/24/21 11:32 BP 118/78 05/24/21 11:32 Pulse Ox 98 05/24/21 11:32 Body Mass Index 25.0 Const: General: cooperative, comfortable, alert and awake Nutritional Appearance: well nourished Orientation/consciousness: patient oriented x3 HENMT: Other: IV left neck; no swelling noted Head: Yes normocephalic Mouth: moist mucous membranes, no drooling and no muffled voice Eyes: Sclerae: sclerae normal Pupils: Equal, round and reactive pupils present Resp: Effort & Inspection: normal respiratory effort, able to speak in complete sentences and no respiratory distress Cardio: Rate: regular rate Rhythm: regular rhythm GI: Inspection: No distended Palpation (GI): Soft to palpation and nontender Neuro: General: patient oriented x3 Cranial nerves: Yes CN's II-XII intact bilaterally, Yes Equal, round and reactive pupils present and Yes Bilaterally intact EOM present Extrem: Other: no leg edema Objective Data Active Medications Acetaminophen (Acetaminophen 325 Mg Tablet) 650 mg PO Q6H PRN PRN Reason: Pain, Mild (Pain Scale 1-3) Amphetamine/Dextroamphetamine (Dextroamphetamine/Amphetamine Xr 10 Mg Cap.Er.24h) 30 mg PO DAILY [facility] Last Admin: 05/24/21 08:51 Dose: 30 mg Documented by: ALDO Atovaquone (Atovaquone 750 Mg/5 Ml Oral.Susp) 750 mg PO BID [facility] Last Admin: 05/24/21 08:51 Dose: 750 mg Documented by: ALDO Benzocaine (Throat Lozenge, Medicated Lozenge) 1 lozenge MUCOUS MEM Q2H PRN PRN Reason: Sore Throat Last Admin: 05/24/21 11:46 Dose: 1 lozenge Documented by: ALDO Bupropion HCl (Bupropion Hcl Xl 150 Mg Tab.Er.24h) 150 mg PO DAILY [facility] Last Admin: 05/24/21 08:51 Dose: 150 mg Documented by: ALDO Diazepam (Diazepam 5 Mg Tablet) 10 mg PO BID PRN PRN Reason: Anxiety Last Admin: 05/23/21 19:49 Dose: 10 mg Documented by: Docusate Sodium (Docusate Sodium 100 Mg Capsule) 100 mg PO BID [facility] Last Admin: 05/24/21 08:51 Dose: 100 mg Documented by: ALDO Doxepin HCl (Doxepin Hcl 10 Mg Capsule) 10 mg PO DAILY PRN PRN Reason: Sleep Last Admin: 05/23/21 19:53 Dose: 10 mg Documented by: LEO Doxycycline Hyclate (Doxycycline Hyclate 100 Mg Tablet) 100 mg PO Q12H [facility] Last Admin: 05/24/21 05:50 Dose: 100 mg Documented by: LEO Enoxaparin Sodium (Enoxaparin Sodium 100 Mg/Ml Syringe) 85 mg SUBCUT Q12H [facility] Last Admin: 05/24/21 10:28 Dose: 85 mg Documented by: ALDO Hydromorphone HCl (Hydromorphone Hcl 0.5 Mg/0.5 Ml Syringe) 0.5 mg IVPUSH Q4H PRN; Protocol PRN Reason: Breakthrough Pain Last Admin: 05/24/21 08:50 Dose: 0.5 mg Documented by: ALDO Hydroxyzine HCl (Hydroxyzine Hcl 50 Mg Tablet) 50 mg PO TID PRN PRN Reason: Anxiety Last Admin: 05/23/21 19:53 Dose: 50 mg Documented by: LEO Sodium Chloride (Ns) 1,000 mls @ 100 mls/hr IVCONT .Q10H [facility] Last Admin: 05/24/21 10:29 Dose: 100 mls/hr Documented by: ALDO Lurasidone HCl (Lurasidone Hcl 40 Mg Tablet) 40 mg PO BEDTIME [facility] Last Admin: 05/23/21 19:39 Dose: 40 mg Documented by: LEO Melatonin (Melatonin 3 Mg Tablet) 6 mg PO BEDTIME PRN PRN Reason: Insomnia Last Admin: 05/23/21 19:48 Dose: 6 mg Documented by: LEO Oxycodone HCl (Oxycodone Hcl Immed Release 5 Mg Tablet) 5 mg PO Q4H PRN PRN Reason: Pain, Severe (Pain Scale 7-10) Last Admin: 05/24/21 11:46 Dose: 5 mg Documented by: ALDO Pharmacy Consult (Consult Rx Perform Med Rec) 1 each MISCELLANE ONCE PRN PRN Reason: Consult order Senna (Sennosides 8.6 Mg Tablet) 17.2 mg PO BEDTIME PRN PRN Reason: Constipation Sodium Chloride (0.9 % Sodium Chloride Flush 3 Ml Syringe) 3 ml IVFLUSH QSHIFT [facility] Last Admin: 05/24/21 09:04 Dose: Not Given Documented by: ALDO Non-Admin Reason: IV Running Valacyclovir HCl (Valacycyclovir Hcl 500 Mg Tablet) 500 mg PO BID [facility] Last Admin: 05/24/21 08:51 Dose: 500 mg Documented by: ALDO Labs CBC & Chem 7: 05/23/21 00:08 05/23/21 09:51 Microbiology Microbiology Results: Microbiology 05/22/21 23:13 Blood Culture - Preliminary Blood - Venous No growth after 24 hours. 05/22/21 23:13 Blood Culture - Preliminary Blood - Venous No growth after 24 hours. 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 Patient reports that she was standing upright when all of a sudden she developed a sudden loss of consciousness, and fell straight on her back hitting her head. She apparently was at a psychiatric hospital inpatient. Workup in the ED showed the patient has a segmental PE as well as multifocal pneumonia. syncope most likely secondary to PE versus vasovagal - troponin negative x2, no EKG changes - continue to monitor on telemetry multifocal pneumonia COVID negative seen by ID, rec doxy and mepron Blood cultures neg x 24 hours - RPP pending PE on Xarelto as well as has an IVC filter for has history of protein S deficiency and PE/DVT - continue therapeutic Lovenox for now - Hematology-Oncology consult pending mood disorder on SECTION 12. Sitter present - psychiatry consulted - continue latuda, wellbutrin, diazepam prn, atarax prn, - can NOT leave AMA neck swelling complaining of right sided neck swelling no swelling appreciated on exam speaking in full sentences; eating and drinking without difficulty; no change in voice/drooling saturating 98% on room air cspine CT from 05/22 no prevertebral soft tissue swelling HIV undetectable viral load per patient no meds on med rec DVT prophylaxis: Lovenox attending: dr. keane Quality Stroke Does the patient have a stroke diagnosis?: No VTE Prior VTE?: Yes VTE Risk Level:: Medical - moderate - high VTE Device Contraindication: Treatment Not Indicated VTE Drug Contraindication: N/A - Med Ordered
[2021-05-24 15:35] VITALS: BP 124/79; PULSE 77; RESP 18; TEMP 36.6; O2SAT 98
[2021-05-24 15:44] LABS: Bordetella parapertussis PCR Not Detected (Not Detect.); Bordetella pertussis PCR Not Detected (Not Detect.); Chlamydia pneumoniae PCR Not Detected (Not Detect.); Coronavirus 229E PCR Not Detected (Not Detect.); Coronavirus HKU1 PCR Not Detected (Not Detect.); Coronavirus NL63 PCR Not Detected (Not Detect.); Coronavirus OC43 PCR Not Detected (Not Detect.); Human metapneumovirus PCR Not Detected (Not Detect.); Influenza A PCR Not Detected (Not Detect.); Influenza B PCR Not Detected (Not Detect.); Mycoplasma pneumoniae PCR Not Detected (Not Detect.); Parainfluenza 1 PCR Not Detected (Not Detect.); Parainfluenza 2 PCR Not Detected (Not Detect.); Parainfluenza 3 PCR Not Detected (Not Detect.); Parainfluenza 4 PCR Not Detected (Not Detect.); RSV PCR Not Detected (Not Detect.); Rhino/Enterovirus PCR Not Detected (Not Detect.); SARS-CoV-2 PCR Not Detected (Not Detect.)
[2021-05-24] MEDS: diazePAM 5 MG TABLET 10 MG PO ×2 (16:14→20:36)
--- NOTE | 2021-05-24 16:16 | PC.NURSE ---
Pt called administration requesting to be transferred another hospital. Bhavani in to see pt, and address concerns. Upon my assessment of pt she stated she was anxious and asked if she could get something for anxiety. Pt medicated for anxiety per MAR.
--- NOTE | 2021-05-24 18:29 | P.EN_ITS ---
Event Note Date of Service: 05/24/21 Event Note: Was asked by arvin to assess this patient who complaint of swo llen . Unpon introduction, i noted patient's neck to be symmetrical with no obvious swelling. While explaining to her that at first site her neck is symetrical, she become very upset, stating I was sent in as specialist and I didn't examined her neck like multiple doctors did earlier and that 'that was it and see you tomorrow . She continues on tirade and would not allow me to explain a think or to be examined. Apparently her behavior has been last this all day, she ask to speak to TEXTILE KNITTER, casino slot supervisor and be transferred to [facility]--and I am told that his has been her her request all along. At this point I thought, excusing myself from this situation was the right course and informed the casino slot supervisor. Should it ever become necessary can ask sitter about how he perceived interaction. RN was present in part as well. With my limited interaction, I did not sense that patient was in an iminent danger, i reviewed her vials to be ok. Should there be a change in her status, the available provider will assess and diagnotics requested as needed
--- NOTE | 2021-05-24 19:11 | MHC.CARE ---
CARE Team meets with patient on IMC at the request of [facility] nursing staff, due to increased dysregulation and mood lability. Pt details her concerns with CARE Team social service director. SW offers support, empathic response, and supports pt in making a plan to address her concerns. Pt identifies that she was admitted to [facility] on CV, and submitted a 3 days notice, that would be up tomorrow 05/25. SW clarifies that pt is no longer a patient at [facility], and the plan will be to re-evaluate pt once she is medically cleared, which pt is agreeable to. SW offers to have a psych provider meet with pt, however, pt declines this. Pt is anxious about her belongings being at [facility], and SW agrees that CARE Team will work to have her belongings returned to her. CARE Team places call to [facility], and will follow up with them in the morning. Pt is ruminating on an interaction she had with her medical provide last night. Thought process is circumstantial and pt presents with sx opf hypomania. Pt is hyperverbal, and eye contact is intermittent. Pt requested pain meds, which is relayed to AKIN Lai. Pt also requested a bible which is given to pt by RAJINDER. Plan is for CARE Team to provide daily support check ins with patient once daily while she is on C. CARE Team is also available to support pt as needed. When SW returns to give pt the bible, she is significantly calmer. CARE Team should also be consulted once pt is medically cleared in order to ensure that pt has a crisis assessment. Consult to psychiatry should also be considered.
--- NOTE | 2021-05-24 19:33 | PC.NURSE ---
Patient stated that her needs are not being met at this hospital and she wants to be transferred. Throughout the day, patient reported R neck swelling and pain. PRN pain medication was administered as ordered. PRN lozenges administered for sore throat. Bhavani ZHANG made aware of R neck swelling and increased neck pain. Gabriella came to the floor to evaluate patient. Later this evening, Dr. Brown came to evaluate patient's neck pain and swelling. This nurse observed patient becoming very upset with MD, yelling at MD and saying that he was not evaluating her properly. This nurse attempted to de-escalate the situation through validation and reassurance. Since patient's behaviors did not deescalate, Natanael Lozano was notified and asked to speak to patient. Care team also came to floor to speak to patient. Psych is aware of patient and psych consult is ordered.
[2021-05-24] MEDS: hydrOXYzine HCL 50 MG TABLET PO (20:10)
[2021-05-24] MEDS: Lurasidone HCl 40 MG TABLET PO (20:12)
[2021-05-24] MEDS: ondansetron HCL 4 MG/2 ML VIAL IVPUSH (20:13)
[2021-05-24] MEDS: Doxepin HCl 10 MG CAPSULE PO (20:34)
[2021-05-24] MEDS: Melatonin 3 MG TABLET 6 MG PO (20:35)
[2021-05-24] MEDS: 0.9 % Sodium Chloride Flush 3 ML SYRINGE IVFLUSH (20:38)
[2021-05-25] VITALS (7 sets, daily range): BP systolic 105–129; BP diastolic 71–89; PULSE 68–84; RESP 16–20; TEMP 35.5–36.7; O2SAT 98–100
[2021-05-25] MEDS: oxyCODONE HCl Immed Release 5 MG TABLET PO ×4 (01:05→21:11)
[2021-05-25] MEDS: HYDROmorphone HCl 0.5 MG/0.5 ML SYRINGE IVPUSH ×5 (01:05→22:25)
[2021-05-25] MEDS: Throat Lozenge, Medicated LOZENGE 1 LOZENGE MUCOUS MEM ×5 (03:21→21:14)
[2021-05-25] MEDS: 0.9 % Sodium Chloride 1,000 ML 100 ML IVCONT (05:48)
[2021-05-25] MEDS: Docusate Sodium 100 MG CAPSULE PO ×2 (09:29→21:02)
[2021-05-25] MEDS: Atovaquone 750 MG/5 ML ORAL.SUSP PO ×2 (09:29→21:02)
[2021-05-25] MEDS: buPROPion HCl XL 150 MG TAB.ER.24H PO (09:29)
[2021-05-25] MEDS: Dextroamphetamine/Amphetamine XR 10 MG CAP.ER.24H 30 MG PO (09:29)
[2021-05-25] MEDS: diazePAM 5 MG TABLET 10 MG PO ×2 (09:50→21:03)
[2021-05-25] MEDS: 0.9 % Sodium Chloride Flush 3 ML SYRINGE IVFLUSH (09:50)
[2021-05-25] MEDS: bisacodyL 5 MG TABLET.DR PO (09:50)
[2021-05-25 09:59] LABS: Adenovirus PCR Detected (Not Detect.)
--- NOTE | 2021-05-25 10:32 | PM.HEMONCCN ---
Subjective - Subjective Chief complaint: Chest pain Patient: new to practice Consult date: 05/25/21 Primary Care Provider: Matilde Schuster MD HPI - Consult Narrative Reason for consult: ? Pulmonary embolism Narrative: Brooke Sellers is a 50 year old female with a history of recurrent pulmonary embolism, HIV and psychiatric issues who now admitted for pneumonia after a syncopal episode witnessed at a inpatient psych unit. CT angiogram also shows possible small filling defect in the right lower lobe suspicious for pulmonary embolism. Patient states that she had an IVC filter placed because of recurrent PEs. She has been on Xarelto for at least 10 years. She states that she was on warfarin before but because of frequent visits for INR monitoring and the fact that she does not drive, it is not possible for her to go back on this. She is afraid of needles and does not like to take Lovenox. She does not recall when she last saw a building insulation installer. She says that she did not have any lower extremity blood clots but she had a clot in her neck vein. She reports swelling in her neck and ongoing pleuritic chest pain in spite of being on Lovenox. No recent fever or chills. 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 Review of Systems - Constitutional Reports as per HPI, Reports no additional constitutional complaints - Neurologic Reports no additional neurologic complaints, Reports as per HPI, Reports hearing normal, Reports headache(s) (Posterior head pain) [facility] Medical History: Medical History (Last Updated 05/23/21 @ 21:48 by Stephanie Doty MD) Bronchiectasis GERD (gastroesophageal reflux disease) HIV (human immunodeficiency virus infection) HIV (human immunodeficiency virus infection) HTN (hypertension) Family history: reviewed and not pertinent Surgical History: Surgical History (Last Reviewed 05/23/21 @ 21:44 by Stephanie Doty MD) Previous section Social History: Social History (Last Reviewed 05/23/21 @ 21:44 by Stephanie Doty MD) Living Situation History: Household Members: None Housing: House Do you presently have visiting nurse or other home services: Yes Tobacco History: Patient Tobacco Use Status: Former Tobacco user Occupation Assessmet: service: No Current occupational status: disabled Home Medications and Allergies Current Medications: Current Medications Acetaminophen (Acetaminophen 325 Mg Tablet) 650 mg PO Q6H PRN PRN Reason: Pain, Mild (Pain Scale 1-3) Amphetamine/Dextroamphetamine (Dextroamphetamine/Amphetamine Xr 10 Mg Cap.Er.24h) 30 mg PO DAILY [facility] Last Admin: 05/25/21 09:29 Dose: 30 mg Documented by: Atovaquone (Atovaquone 750 Mg/5 Ml Oral.Susp) 750 mg PO BID [facility] Last Admin: 05/25/21 09:29 Dose: 750 mg Documented by: Benzocaine (Throat Lozenge, Medicated Lozenge) 1 lozenge MUCOUS MEM Q2H PRN PRN Reason: Sore Throat Last Admin: 05/25/21 09:29 Dose: 1 lozenge Documented by: Bisacodyl (Bisacodyl 5 Mg Tablet.Dr) 5 mg PO DAILY PRN PRN Reason: Constipation Last Admin: 05/25/21 09:50 Dose: 5 mg Documented by: Bupropion HCl (Bupropion Hcl Xl 150 Mg Tab.Er.24h) 150 mg PO DAILY [facility] Last Admin: 05/25/21 09:29 Dose: 150 mg Documented by: Diazepam (Diazepam 5 Mg Tablet) 10 mg PO BID PRN PRN Reason: Anxiety Last Admin: 05/25/21 09:50 Dose: 10 mg Documented by: Docusate Sodium (Docusate Sodium 100 Mg Capsule) 100 mg PO BID [facility] Last Admin: 05/25/21 09:29 Dose: 100 mg Documented by: Doxepin HCl (Doxepin Hcl 10 Mg Capsule) 10 mg PO DAILY PRN PRN Reason: Sleep Last Admin: 05/24/21 20:34 Dose: 10 mg Documented by: Doxycycline Hyclate (Doxycycline Hyclate 100 Mg Tablet) 100 mg PO Q12H [facility] Last Admin: 05/25/21 05:47 Dose: 100 mg Documented by: Enoxaparin Sodium (Enoxaparin Sodium 100 Mg/Ml Syringe) 85 mg SUBCUT Q12H [facility] Last Admin: 05/24/21 22:05 Dose: 85 mg Documented by: Hydromorphone HCl (Hydromorphone Hcl 0.5 Mg/0.5 Ml Syringe) 0.5 mg IVPUSH Q4H PRN; Protocol PRN Reason: Breakthrough Pain Last Admin: 05/25/21 09:28 Dose: 0.5 mg Documented by: Hydroxyzine HCl (Hydroxyzine Hcl 50 Mg Tablet) 50 mg PO TID PRN PRN Reason: Anxiety Last Admin: 05/24/21 20:10 Dose: 50 mg Documented by: Sodium Chloride (Ns) 1,000 mls @ 100 mls/hr IVCONT .Q10H [facility] Last Admin: 05/25/21 05:48 Dose: 100 mls/hr Documented by: Lurasidone HCl (Lurasidone Hcl 40 Mg Tablet) 40 mg PO BEDTIME [facility] Last Admin: 05/24/21 20:12 Dose: 40 mg Documented by: Melatonin (Melatonin 3 Mg Tablet) 6 mg PO BEDTIME PRN PRN Reason: Insomnia Last Admin: 05/24/21 20:35 Dose: 6 mg Documented by: Oxycodone HCl (Oxycodone Hcl Immed Release 5 Mg Tablet) 5 mg PO Q4H PRN PRN Reason: Pain, Severe (Pain Scale 7-10) Last Admin: 05/25/21 05:47 Dose: 5 mg Documented by: Pharmacy Consult (Consult Rx Perform Med Rec) 1 each MISCELLANE ONCE PRN PRN Reason: Consult order Senna (Sennosides 8.6 Mg Tablet) 17.2 mg PO BEDTIME PRN PRN Reason: Constipation Sodium Chloride (0.9 % Sodium Chloride Flush 3 Ml Syringe) 3 ml IVFLUSH QSHIFT [facility] Last Admin: 05/25/21 09:50 Dose: 3 ml Documented by: Valacyclovir HCl (Valacycyclovir Hcl 500 Mg Tablet) 500 mg PO BID [facility] Last Admin: 05/25/21 09:29 Dose: 500 mg Documented by: Home Medications Medication Instructions Recorded Confirmed Type bupropion HCl 100 mg tablet,12 hr 1 tab PO BID 05/23/21 05/23/21 History sustained-release dextroamphetamine-amphetamine ER 1 cap PO BEDTIME 05/23/21 05/23/21 History 30 mg 24hr capsule,extend release (Adderall XR) diazepam 10 mg tablet 1 tab PO BID PRN 05/23/21 05/23/21 History docusate sodium 100 mg capsule 1 cap PO BID 05/23/21 05/23/21 History doxepin 10 mg capsule 10 mg PO DAILY PRN 05/23/21 05/23/21 History hydroxyzine pamoate 50 mg capsule 1 cap PO TID PRN 05/23/21 05/23/21 History lurasidone 40 mg tablet (Latuda) 1 tab PO BEDTIME 05/23/21 05/23/21 History rivaroxaban 20 mg tablet (Xarelto) 1 tab PO BEDTIME 05/23/21 05/23/21 History valacyclovir 500 mg tablet 500 mg PO BID 05/23/21 05/23/21 History Allergies Allergy/AdvReac Type Severity Reaction Status Date / Time No Known Allergies Allergy Verified 05/22/21 18:42 Physical Exam Vital signs: Vital Signs Temp 96 F L 05/25/21 07:08 Pulse 77 05/25/21 07:08 Resp 18 05/25/21 07:08 BP 129/77 05/25/21 07:08 Pulse Ox 99 05/25/21 07:08 Intake & Output 05/24/21 05/25/21 05/25/21 18:59 06:59 18:59 Intake Total 1480 / 4131.667 2651.667 / 4131.667 Balance 1480 / 4131.667 2651.667 / 4131.667 Intake: Intake, Oral Amount 480 / 1200 720 / 1200 Intake, IV Amount 1000 / 2931.667 1931.667 / 2931.667 0.9 % Sodium Chloride 1,000 ml 1000 / 2931.667 1931.667 / 2931.667 @ 100 mls/hr IVCONT .Q10H [facility] Rx#:[id number] Other: Breakfast % Eaten 100% Lunch % Eaten 100% Number of Unmeasured Voids 2 Urine Bathroom Last Bowel Movement 05/18/21 05/18/21 Weight 83.915 kg Weight 83.915 kg - Constitutional Present: no acute distress - Routine HEENT Exam Head: Present: normal inspection Eye: Present: EOMI - Routine Neck Exam Present: supple - Routine Respiratory Exam Absent: respiratory distress, rhonchi, wheezes - Routine Cardiovascular Exam Cardiovascular: Present: RRR, S1, S2 - Routine Abdominal Exam Present: soft - Routine Extremities Exam Absent: calf tenderness, pedal edema Hem/Onc Consult Result - Labs CBC & Chem 7: 05/23/21 00:08 05/23/21 09:51 Assessment and Plan Patient Active problem list reviewed?: Yes (1) Pulmonary embolism Status: Acute Assessment and plan: 1. This is a 50-year-old woman with history of recurrent pulmonary embolism who is on chronic anticoagulation with Xarelto 20 mg once daily. She is currently admitted for bilateral pneumonia and CT angiogram revealed a small possible right lower lobe pulmonary embolism. This may or may not be new. This is certainly not causing her symptoms at this time. None of her records are available. I have requested them from [facility] in [place]. Ideally, current CT angiogram should be compared with an old study if present. She is currently on Lovenox b.i.d.. Either this can be continued until she sees her building insulation installer in [place] or she can be switched to Eliquis/Xarelto. As per history she has been on long-term anticoagulation for recurrent PE. I thank you for this consultation. - Time Spent With Patient Time Spent with Patient (in minutes): 15
[2021-05-25] MEDS: Enoxaparin Sodium 100 MG/ML SYRINGE 85 MG SUBCUT (12:19)
--- NOTE | 2021-05-25 13:24 | MHC.CM.PN ---
spoke with janae from care team who will working with n for inpt psych pt
--- NOTE | 2021-05-25 14:17 | P.PNIM_ITS ---
Subjective Subjective Date of Service: 05/25/21 <LEATHA Tavarez - Last Filed: 05/25/21 14:28> 05/28/21 <Juan Keane MD - Last Filed: 05/28/21 07:46> Interval History: seen and examined this morning follow up for PE/pneumonia resting comfortably would like dosing of lovenox to be changed so she doesn't have to get a dose at midnight <LEATHA Tavarez - Last Filed: 05/25/21 14:28> Review of Systems Review of Systems: Yes all other systems are reviewed and are negative <LEATHA Tavarez - Last Filed: 05/25/21 14:28> Constitutional Constitutional: Denies chills and Denies fever(s) <LEATHA Tavarez - Last Filed: 05/25/21 14:28> Cardiovascular Cardiovascular: Denies chest pain <LEATHA Tavarez - Last Filed: 05/25/21 14:28> Gastrointestinal Gastrointestinal: Denies abdominal pain <LEATHA Tavarez - Last Filed: 05/25/21 14:28> Physical Exam Vital Signs: Vital Signs: Last Vital Signs Temp 96 F L 05/25/21 11:12 Pulse 81 05/25/21 11:12 Resp 16 05/25/21 11:12 BP 106/74 05/25/21 11:12 Pulse Ox 100 05/25/21 11:12 Body Mass Index 25.0 <LEATHA Tavarez - Last Filed: 05/25/21 14:28> Const: General: cooperative, comfortable, alert and awake <LEATHA Tavarez - Last Filed: 05/25/21 14:28> Nutritional Appearance: well nourished <LEATHA Tavarez Last Filed: 05/25/21 14:28> Orientation/consciousness: patient oriented x3 <LEATHA Tavarez - Last Filed: 05/25/21 14:28> HENMT: Other: IV left neck; no swelling noted <LEATHA Tavarez Last Filed: 05/25/21 14:28> Head: Yes normocephalic <LEATHA Tavarez - Last Filed: 05/25/21 14:28> Mouth: moist mucous membranes, no drooling and no muffled voice <LEATHA Tavarez - Last Filed: 05/25/21 14:28> Eyes: Sclerae: sclerae normal <LEATHA Tavarez Last Filed: 05/25/21 14:28> Pupils: Equal, round and reactive pupils present <LEATHA Tavarez - Last Filed: 05/25/21 14:28> Resp: Effort & Inspection: normal respiratory effort, able to speak in compl ete sentences and no respiratory distress <LEATHA Tavarez - Last Filed: 05/25/21 14:28> Cardio: Rate: regular rate <LEATHA Tavarez - Last Filed: 05/25/21 14:28> Rhythm: regular rhythm <LEATHA Tavarez - Last Filed: 05/25/21 14:28> GI: Inspection: No distended <LEATHA Tavarez - Last Filed: 05/25/21 14:28> Palpation (GI): Soft to palpation and nontender <LEATHA Tavarez - Last Filed: 05/25/21 14:28> Neuro: General: patient oriented x3 <LEATHA Tavarez - Last Filed: 05/25/21 14:28> Cranial nerves: Yes CN's II-XII intact bilaterally, Yes Equal, round and reactive pupils present and Yes Bilaterally intact EOM present <LEATHA Tavarez - Last Filed: 05/25/21 14:28> Extrem: Other: no leg edema <LEATHA Tavarez - Last Filed: 05/25/21 14:28> Objective Data Active Medications Acetaminophen (Acetaminophen 325 Mg Tablet) 650 mg PO Q6H PRN PRN Reason: Pain, Mild (Pain Scale 1-3) Amphetamine/Dextroamphetamine (Dextroamphetamine/Amphetamine Xr 10 Mg Cap.Er.24h) 30 mg PO DAILY COUNT INCLUDES [facility] Last Admin: 05/25/21 09:29 Dose: 30 mg Documented by: ALDO Atovaquone (Atovaquone 750 Mg/5 Ml Oral.Susp) 750 mg PO BID COUNT INCLUDES THE [facility] Last Admin: 05/25/21 09:29 Dose: 750 mg Documented by: ALDO Benzocaine (Throat Lozenge, Medicated Lozenge) 1 lozenge MUCOUS MEM Q2H PRN PRN Reason: Sore Throat Last Admin: 05/25/21 12:19 Dose: 1 lozenge Documented by: ALDO Bisacodyl (Bisacodyl 5 Mg Tablet.Dr) 5 mg PO DAILY PRN PRN Reason: Constipation Last Admin: 05/25/21 09:50 Dose: 5 mg Documented by: ALDO Bupropion HCl (Bupropion Hcl Xl 150 Mg Tab.Er.24h) 150 mg PO DAILY COUNT INCLUDES [facility] Last Admin: 05/25/21 09:29 Dose: 150 mg Documented by: ALDO Diazepam (Diazepam 5 Mg Tablet) 10 mg PO BID PRN PRN Reason: Anxiety Last Admin: 05/25/21 09:50 Dose: 10 mg Documented by: ALDO Docusate Sodium (Docusate Sodium 100 Mg Capsule) 100 mg PO BID COUNT INCLUDES [facility] Last Admin: 05/25/21 09:29 Dose: 100 mg Documented by: ALDO Doxepin HCl (Doxepin Hcl 10 Mg Capsule) 10 mg PO DAILY PRN PRN Reason: Sleep Last Admin: 05/24/21 20:34 Dose: 10 mg Documented by: ISELA Doxycycline Hyclate (Doxycycline Hyclate 100 Mg Tablet) 100 mg PO Q12H COUNT INCLUDES THE [facility] Last Admin: 05/25/21 05:47 Dose: 100 mg Documented by: ISELA Enoxaparin Sodium (Enoxaparin Sodium 100 Mg/Ml Syringe) 85 mg SUBCUT Q12H COUNT INCLUDES THE [facility] Last Admin: 05/25/21 12:19 Dose: 85 mg Documented by: ALDO Hydromorphone HCl (Hydromorphone Hcl 0.5 Mg/0.5 Ml Syringe) 0.5 mg IVPUSH Q4H PRN; Protocol PRN Reason: Breakthrough Pain Last Admin: 05/25/21 09:28 Dose: 0.5 mg Documented by: ALDO Hydroxyzine HCl (Hydroxyzine Hcl 50 Mg Tablet) 50 mg PO TID PRN PRN Reason: Anxiety Last Admin: 05/24/21 20:10 Dose: 50 mg Documented by: ISELA Lurasidone HCl (Lurasidone Hcl 40 Mg Tablet) 40 mg PO BEDTIME [facility] Last Admin: 05/24/21 20:12 Dose: 40 mg Documented by: ISELA Melatonin (Melatonin 3 Mg Tablet) 6 mg PO BEDTIME PRN PRN Reason: Insomnia Last Admin: 05/24/21 20:35 Dose: 6 mg Documented by: ISELA Oxycodone HCl (Oxycodone Hcl Immed Release 5 Mg Tablet) 5 mg PO Q4H PRN PRN Reason: Pain, Severe (Pain Scale 7-10) Last Admin: 05/25/21 12:17 Dose: 5 mg Documented by: ALDO Pharmacy Consult (Consult Rx Perform Med Rec) 1 each MISCELLANE ONCE PRN PRN Reason: Consult order Senna (Sennosides 8.6 Mg Tablet) 17.2 mg PO BEDTIME PRN PRN Reason: Constipation Sodium Chloride (0.9 % Sodium Chloride Flush 3 Ml Syringe) 3 ml IVFLUSH QSHIFT COUNT INCLUDES THE [facility] Last Admin: 05/25/21 09:50 Dose: 3 ml Documented by: ALDO Valacyclovir HCl (Valacycyclovir Hcl 500 Mg Tablet) 500 mg PO BID COUNT INCLUDES THE [facility] Last Admin: 05/25/21 09:29 Dose: 500 mg Documented by: ALDO <LEATHA Tavarez - Last Filed: 05/25/21 14:28> Labs CBC & Chem 7: : 05/23/21 00:08 05/28/21 06:18 <LEATHA Tavarez - Last Filed: 05/25/21 14:28> Labs: Laboratory Results - last 24 hr 05/24/21 15:35 Respiratory Panel [place] See Note Adenovirus (Rapid PCR) Detected A B.pert (TEM-PCR) Not Detected B.parapertussis DNA PCR Not Detected C. pneumoniae DNA (PCR) Not Detected Coronavirus OC43 (PCR) Not Detected Coronavirus HKU1 (PCR) Not Detected Coronavirus 229E (PCR) Not Detected Coronavirus NL63 (PCR) Not Detected Human Metapneumovir PCR Not Detected Influenza A (RT-PCR) Not Detected Influenza B (RT-PCR) Not Detected M. pneumoniae (PCR) Not Detected Parainfluenza 1 (PCR) Not Detected Parainfluenza 2 (PCR) Not Detected Parainfluenza 3 (PCR) Not Detected Parainfluenza 4 (PCR) Not Detected RSV (PCR) Not Detected Entero/Rhino (PCR) Not Detected SARS-CoV-2 RNA (RT-PCR) Not Detected <LEATHA Tavarez - Last Filed: 05/25/21 14:28> Microbiology Microbiology Results: Microbiology 05/22/21 23:13 Blood Culture - Preliminary Blood - Venous No growth after 48 hours. 05/22/21 23:13 Blood Culture - Preliminary Blood - Venous No growth after 48 hours. 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 Patient reports that she was standing upright when all of a sudden she developed a sudden loss of consciousness, and fell straight on her back hitting her head. She apparently was at a psychiatric hospital inpatient. Workup in the ED showed the patient has a segmental PE as well as multifocal pneumonia. syncope most likely secondary to PE versus vasovagal - troponin negative x2, no EKG changes - continue to monitor on telemetry multifocal pneumonia COVID negative seen by ID, rec doxy and mepron x 10 days (started 05/23) RPP + for adenovirus Blood cultures neg x 48 hours PE on Xarelto as well as has an IVC filter for has history of protein S deficiency and PE/DVT - seen by heme/onc - continue therapeutic Lovenox for now, outpatient follow up with pt own temperature regulator pyrometer as outpatient mood disorder transferred from [facility] inpatient psych on SECTION 12. Sitter present - continue latuda, wellbutrin, diazepam prn, atarax prn, - can NOT leave AMA needs new crisis eval, MARICARMEN consulted neck swelling complaining of right sided neck swelling no swelling appreciated on exam speaking in full sentences; eating and drinking without difficulty; no change in voice/drooling saturating 98% on room air cspine CT from 05/22 no prevertebral soft tissue swelling HIV undetectable viral load per patient no meds on med rec DVT prophylaxis: Lovenomercy attending: dr. keane dispo: pending N eval, anticipate will need ongoing inpatient [facility] management <LEATHA Tavarez - Last Filed: 05/25/21 14:28> Quality Stroke Does the patient have a stroke diagnosis?: No <LEATHA Tavarez - Last Filed: 05/25/21 14:28> VTE Prior VTE?: Yes <LEATHA Tavarez - Last Filed: 05/25/21 14:28> VTE Risk Level:: Medical - moderate - high <LEATHA Tavarez - Last Filed: 05/25/21 14:28> VTE Device Contraindication: Treatment Not Indicated <LEATHA Tavarez - Last Filed: 05/25/21 14:28> VTE Drug Contraindication: N/A - Med Ordered <LEATHA Tavarez - Last Filed: 05/25/21 14:28>
[2021-05-25] MEDS: hydrOXYzine HCL 50 MG TABLET PO ×2 (14:28→22:25)
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
--- NOTE | 2021-05-25 17:29 | MHC.CARE ---
CARE team completed evaluation. We have been unsuccessful with obtaining records from Jeane Shai and have not been able to get her sister, John Sellers ([phone]) on the phone for collateral information. Plan at this time will be for follow up in the morning. We will continue to reach out to Jeane Gibbons and to John tomorrow. Bhavani ZHANG updated re: status.
[2021-05-25] MEDS: Gabapentin 300 MG CAPSULE PO ×2 (18:30→21:02)
[2021-05-25] MEDS: Escitalopram Oxalate 10 MG TABLET PO (21:02)
[2021-05-25] MEDS: Melatonin 3 MG TABLET 6 MG PO (21:02)
[2021-05-25] MEDS: Lurasidone HCl 40 MG TABLET PO (21:03)
[2021-05-26] VITALS (8 sets, daily range): BP systolic 100–149; BP diastolic 56–91; PULSE 69–85; RESP 16–18; TEMP 36.1–37.1; O2SAT 96–100
[2021-05-26] MEDS: HYDROmorphone HCl 0.5 MG/0.5 ML SYRINGE IVPUSH ×5 (02:13→21:24)
[2021-05-26] MEDS: Throat Lozenge, Medicated LOZENGE 1 LOZENGE MUCOUS MEM ×4 (02:20→21:22)
[2021-05-26] MEDS: oxyCODONE HCl Immed Release 5 MG TABLET PO ×4 (05:08→18:40)
[2021-05-26] MEDS: 0.9 % Sodium Chloride Flush 3 ML SYRINGE IVFLUSH ×4 (06:41→21:22)
[2021-05-26] MEDS: Dextroamphetamine/Amphetamine XR 10 MG CAP.ER.24H 30 MG PO (09:07)
[2021-05-26] MEDS: Docusate Sodium 100 MG CAPSULE PO (09:08)
[2021-05-26] MEDS: Enoxaparin Sodium 100 MG/ML SYRINGE 85 MG SUBCUT ×2 (09:08→21:20)
[2021-05-26] MEDS: Atovaquone 750 MG/5 ML ORAL.SUSP PO ×2 (09:08→21:20)
--- NOTE | 2021-05-26 10:47 | HO.PM.IMPN ---
Subjective Subjective Date of Service: 05/26/21 Interval History: No acute issues overnight remains under one-to-one supervision Review of Systems Denies chest pain Denies shortness of breath Denies nausea vomiting diarrhea Physical Exam Vital Signs: Vital Signs: Last Vital Signs Temp 98.6 F 05/26/21 08:00 Pulse 77 05/26/21 08:00 Resp 18 05/26/21 08:00 BP 130/73 05/26/21 08:00 Pulse Ox 98 05/26/21 08:00 Body Mass Index 25.0 Const: Other: Week heard no acute distress HENMT: Other: Membranes moist oropharynx clear Resp: Other: Clear to auscultation bilaterally no rales rhonchi or wheezes Cardio: Other: No S4; positive S1-S2; no S3 murmurs or gallops GI: Other: Soft nontender nondistended normoactive bowel sounds Neuro: Other: Cranial nerves 2-12 grossly intact as tested. Motor is 5/5 in all extremities. Sensation is intact. Cognition appropriate Extrem: Other: No edema bilaterally Objective Data Active Medications Acetaminophen (Acetaminophen 325 Mg Tablet) 650 mg PO Q6H PRN PRN Reason: Pain, Mild (Pain Scale 1-3) Amphetamine/Dextroamphetamine (Dextroamphetamine/Amphetamine Xr 10 Mg Cap.Er.24h) 30 mg PO DAILY [facility] Last Admin: 05/26/21 09:07 Dose: 30 mg Documented by: KAILA Atovaquone (Atovaquone 750 Mg/5 Ml Oral.Susp) 750 mg PO BID [facility] Last Admin: 05/26/21 09:08 Dose: 750 mg Documented by: KAILA Benzocaine (Throat Lozenge, Medicated Lozenge) 1 lozenge MUCOUS MEM Q2H PRN PRN Reason: Sore Throat Last Admin: 05/26/21 05:08 Dose: 1 lozenge Documented by: ILDA Bisacodyl (Bisacodyl 5 Mg Tablet.Dr) 5 mg PO DAILY PRN PRN Reason: Constipation Last Admin: 05/25/21 09:50 Dose: 5 mg Documented by: ALDO Bupropion HCl (Bupropion Hcl Xl 150 Mg Tab.Er.24h) 150 mg PO DAILY [facility] Last Admin: 05/25/21 09:29 Dose: 150 mg Documented by: ALDO Diazepam (Diazepam 5 Mg Tablet) 10 mg PO BID PRN PRN Reason: Anxiety Last Admin: 05/25/21 21:03 Dose: 10 mg Documented by: ILDA Docusate Sodium (Docusate Sodium 100 Mg Capsule) 100 mg PO BID [facility] Last Admin: 05/26/21 09:08 Dose: 100 mg Documented by: KAILA Doxycycline Hyclate (Doxycycline Hyclate 100 Mg Tablet) 100 mg PO Q12H [facility] Last Admin: 05/26/21 06:31 Dose: 100 mg Documented by: ILDA Enoxaparin Sodium (Enoxaparin Sodium 100 Mg/Ml Syringe) 85 mg SUBCUT Q12H [facility] Last Admin: 05/26/21 09:08 Dose: 85 mg Documented by: KAILA Enoxaparin Sodium (Enoxaparin Sodium 100 Mg/Ml Syringe) 85 mg SUBCUT ONCE [facility] Escitalopram Oxalate (Escitalopram Oxalate 10 Mg Tablet) 10 mg PO BEDTIME [facility] Last Admin: 05/25/21 21:02 Dose: 10 mg Documented by: ILDA Gabapentin (Gabapentin 300 Mg Capsule) 300 mg PO BEDTIME [facility] Last Admin: 05/25/21 21:02 Dose: 300 mg Documented by: ILDA Gabapentin (Gabapentin 300 Mg Capsule) 300 mg PO DAILY PRN PRN Reason: anxiety Last Admin: 05/25/21 18:30 Dose: 300 mg Documented by: ALDO Hydromorphone HCl (Hydromorphone Hcl 0.5 Mg/0.5 Ml Syringe) 0.5 mg IVPUSH Q4H PRN; Protocol PRN Reason: Breakthrough Pain Last Admin: 05/26/21 06:31 Dose: 0.5 mg Documented by: ILDA Hydroxyzine HCl (Hydroxyzine Hcl 50 Mg Tablet) 50 mg PO TID PRN PRN Reason: Anxiety Last Admin: 05/25/21 22:25 Dose: 50 mg Documented by: ILDA Lurasidone HCl (Lurasidone Hcl 40 Mg Tablet) 40 mg PO BEDTIME [facility] Last Admin: 05/25/21 21:03 Dose: 40 mg Documented by: ILDA Melatonin (Melatonin 3 Mg Tablet) 9 mg PO BEDTIME PRN PRN Reason: Insomnia Oxycodone HCl (Oxycodone Hcl Immed Release 5 Mg Tablet) 5 mg PO Q4H PRN PRN Reason: Pain, Severe (Pain Scale 7-10) Last Admin: 05/26/21 09:08 Dose: 5 mg Documented by: KAILA Pharmacy Consult (Consult Rx Perform Med Rec) 1 each MISCELLANE ONCE PRN PRN Reason: Consult order Senna (Sennosides 8.6 Mg Tablet) 17.2 mg PO BEDTIME PRN PRN Reason: Constipation Sodium Chloride (0.9 % Sodium Chloride Flush 3 Ml Syringe) 3 ml IVFLUSH QSHIFT [facility] Last Admin: 05/26/21 09:14 Dose: 3 ml Documented by: KAILA Valacyclovir HCl (Valacycyclovir Hcl 500 Mg Tablet) 500 mg PO BID [facility] Last Admin: 05/26/21 09:08 Dose: 500 mg Documented by: KAILA Labs CBC & Chem 7: 05/23/21 00:08 05/23/21 09:51 Assessment and Plan (1) Pulmonary embolism: Status: Acute (2) PNA (pneumonia): Status: Acute (3) Syncope: Status: Acute (4) Bipolar disorder: Status: Acute Assessment and Plan: 50-year-old female with past medical history of hypertension, HIV, protein S deficiency, 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 Patient reports that she was standing upright when all of a sudden she developed a sudden loss of consciousness, and fell straight on her back hitting her head. She apparently was at a psychiatric hospital inpatient. Workup in the ED showed the patient has a segmental PE as well as multifocal pneumonia. 1.Syncope query secondary to pulmonary emboli Ruled out by EKG and enzymes. Telemetry remained sinus rhythm. Continue same 2.Multifocal pneumonia (by CTA) Continue Doxycycline/Mepron x 10 days (started 05/23) Blood cultures neg (final) 3. Pulmonary embolism Xarelto/ has an IVC filter for has history of protein S deficiency and PE/DVT Continue therapeutic Lovenox; outpatient follow up with pt own quality assurance qa lab analyst as outpatient 4.Mood disorder Transferred from [facility] psych on SECTION 12. Sitter present Continue latuda, wellbutrin, diazepam prn, atarax prn, BHN consulted... Will need placement in a [facility] facility DVT prophylaxis: Lovenox/IVC filter Full code Quality Stroke Does the patient have a stroke diagnosis?: No VTE Prior VTE?: Yes VTE Risk Level:: Medical - moderate - high VTE Device Contraindication: Treatment Not Indicated VTE Drug Contraindication: N/A - Med Ordered
[2021-05-26] MEDS: hydrOXYzine HCL 50 MG TABLET PO (11:47)
[2021-05-26] MEDS: Lactulose 20 GM/30 ML SOLUTION PO (14:09)
[2021-05-26 14:49] LABS: INTERNATIONAL NORM RATIO 1.1 (0.9-1.1); Prothrombin Time 12.3 SEC (9.9-13.0)
[2021-05-26] MEDS: Escitalopram Oxalate 10 MG TABLET PO (21:21)
[2021-05-26] MEDS: Lurasidone HCl 40 MG TABLET PO (21:21)
[2021-05-26] MEDS: Gabapentin 300 MG CAPSULE PO (21:21)
[2021-05-26] MEDS: Sennosides 8.6 MG TABLET 17.2 MG PO (21:22)
[2021-05-26] MEDS: diazePAM 5 MG TABLET 10 MG PO (21:23)
[2021-05-26] MEDS: Melatonin 3 MG TABLET 9 MG PO (21:23)
[2021-05-26] MEDS: ondansetron HCL 4 MG/2 ML VIAL IVPUSH (21:41)
[2021-05-27] MEDS: oxyCODONE HCl Immed Release 5 MG TABLET PO ×5 (00:51→21:39)
[2021-05-27] MEDS: HYDROmorphone HCl 0.5 MG/0.5 ML SYRINGE IVPUSH ×5 (01:48→20:14)
[2021-05-27 03:21] VITALS: BP 113/76; PULSE 80; RESP 20; TEMP 36.5; O2SAT 98
[2021-05-27 07:51] VITALS: BP 124/77; PULSE 70; RESP 18; TEMP 37; O2SAT 96
[2021-05-27] MEDS: Dextroamphetamine/Amphetamine XR 10 MG CAP.ER.24H 30 MG PO (09:24)
[2021-05-27] MEDS: Enoxaparin Sodium 100 MG/ML SYRINGE 85 MG SUBCUT ×2 (09:24→20:13)
[2021-05-27] MEDS: Docusate Sodium 100 MG CAPSULE PO ×2 (09:25→20:14)
[2021-05-27] MEDS: buPROPion HCl XL 150 MG TAB.ER.24H PO (09:25)
[2021-05-27] MEDS: 0.9 % Sodium Chloride Flush 3 ML SYRINGE IVFLUSH ×3 (09:25→20:14)
[2021-05-27] MEDS: ondansetron HCL 4 MG/2 ML VIAL IVPUSH (09:25)
[2021-05-27] MEDS: Atovaquone 750 MG/5 ML ORAL.SUSP PO ×2 (09:25→20:13)
[2021-05-27] MEDS: diazePAM 5 MG TABLET 10 MG PO ×2 (09:30→21:39)
[2021-05-27] MEDS: Gabapentin 300 MG CAPSULE PO ×2 (09:33→20:16)
--- NOTE | 2021-05-27 10:36 | MHC.CARE ---
Numerous attempts have been made to contact [facility] by CARE Team this weekend.? Phone calls have been made on both Friday and Friday with messages left requesting a return phone call.? E Mail sent to the finance attorney at [facility] requesting follow up, CARE emergency response coordinator Debra Kelly on that.? CARE Team contacted [facility] requesting assistance in getting a hold of [facility].? [facility] transfers CARE Team to [facility], no answer.? Physician caring for pt advises CARE Team that no records came with pt from [facility].? Pt?s belongings do not appear to have been dropped off as was initially believed.? CARE Team is still unable to arrive at a well-informed disposition for this patient.
[2021-05-27] MEDS: Throat Lozenge, Medicated LOZENGE 1 LOZENGE MUCOUS MEM ×2 (11:38→14:07)
[2021-05-27 11:48] VITALS: BP 135/67; PULSE 67; RESP 20; TEMP 37.1; O2SAT 98
--- NOTE | 2021-05-27 12:43 | P.PNIM_ITS ---
Subjective Subjective Date of Service: 05/27/21 Interval History: C/o severe pleuritic chest pain. C/o insomnia for which she has taken doxepin in past. Also constipated with no BM x 8d Not sure what her ARV regimen is but thinks it may be Dovato. She says she has not filled it in some time but is unable to quantify how long; she is a poor historian. She thinks she is seen at the ID clinic at [facility] in [place]. Review of Systems Review of Systems: Yes all other systems are reviewed and are negative Physical Exam Vital Signs: Vital Signs: Last Vital Signs Temp 98.7 F 05/27/21 11:48 Pulse 67 05/27/21 11:48 Resp 20 05/27/21 11:48 BP 135/67 05/27/21 11:48 Pulse Ox 98 05/27/21 11:48 Body Mass Index 25.0 Gen: in no acute distress HEENT: sclera anicteric, moist mucus membranes Neck: supple Lungs: clear to auscultation bilaterally Heart: regular rate and rhythm, no murmurs Abd: soft, non-tender, non-distended Ext: no edema Skin: warm/well-perfused Neuro: alert and oriented x3, no focal findings Psych: appropriate affect Objective Data Active Medications Acetaminophen (Acetaminophen 325 Mg Tablet) 650 mg PO Q6H PRN PRN Reason: Pain, Mild (Pain Scale 1-3) Amphetamine/Dextroamphetamine (Dextroamphetamine/Amphetamine Xr 10 Mg Cap.Er.24h) 30 mg PO DAILY [facility] Last Admin: 05/27/21 09:24 Dose: 30 mg Documented by: KAILA Atovaquone (Atovaquone 750 Mg/5 Ml Oral.Susp) 750 mg PO BID [facility] Last Admin: 05/27/21 09:25 Dose: 750 mg Documented by: KAILA Benzocaine (Throat Lozenge, Medicated Lozenge) 1 lozenge MUCOUS MEM Q2H PRN PRN Reason: Sore Throat Last Admin: 05/27/21 11:38 Dose: 1 lozenge Documented by: KAILA Bisacodyl (Bisacodyl 5 Mg Tablet.Dr) 5 mg PO DAILY PRN PRN Reason: Constipation Last Admin: 05/25/21 09:50 Dose: 5 mg Documented by: ALDO Bupropion HCl (Bupropion Hcl Xl 150 Mg Tab.Er.24h) 150 mg PO DAILY [facility] Last Admin: 05/27/21 09:25 Dose: 150 mg Documented by: KAILA Diazepam (Diazepam 5 Mg Tablet) 10 mg PO BID PRN PRN Reason: Anxiety Last Admin: 05/27/21 09:30 Dose: 10 mg Documented by: KAILA Docusate Sodium (Docusate Sodium 100 Mg Capsule) 100 mg PO BID [facility] Last Admin: 05/27/21 09:25 Dose: 100 mg Documented by: KAILA Doxepin HCl (Doxepin Hcl 10 Mg Capsule) 10 mg PO BEDTIME [facility] Doxycycline Hyclate (Doxycycline Hyclate 100 Mg Tablet) 100 mg PO Q12H [facility] Last Admin: 05/27/21 06:38 Dose: 100 mg Documented by: APOLINAR Enoxaparin Sodium (Enoxaparin Sodium 100 Mg/Ml Syringe) 85 mg SUBCUT Q12H [facility] Last Admin: 05/27/21 09:24 Dose: 85 mg Documented by: KAILA Enoxaparin Sodium (Enoxaparin Sodium 100 Mg/Ml Syringe) 85 mg SUBCUT ONCE [facility] Escitalopram Oxalate (Escitalopram Oxalate 10 Mg Tablet) 10 mg PO BEDTIME [facility] Last Admin: 05/26/21 21:21 Dose: 10 mg Documented by: AJIT Gabapentin (Gabapentin 300 Mg Capsule) 300 mg PO DAILY PRN PRN Reason: anxiety Last Admin: 05/27/21 09:33 Dose: 300 mg Documented by: KAILA Gabapentin (Gabapentin 300 Mg Capsule) 300 mg PO BID [facility] Hydromorphone HCl (Hydromorphone Hcl 0.5 Mg/0.5 Ml Syringe) 0.5 mg IVPUSH Q4H PRN; Protocol PRN Reason: Breakthrough Pain Last Admin: 05/27/21 11:38 Dose: 0.5 mg Documented by: KAILA Hydroxyzine HCl (Hydroxyzine Hcl 50 Mg Tablet) 50 mg PO TID PRN PRN Reason: Anxiety Last Admin: 05/26/21 11:47 Dose: 50 mg Documented by: KAILA Lurasidone HCl (Lurasidone Hcl 40 Mg Tablet) 40 mg PO BEDTIME [facility] Last Admin: 05/26/21 21:21 Dose: 40 mg Documented by: AJIT Melatonin (Melatonin 3 Mg Tablet) 9 mg PO BEDTIME PRN PRN Reason: Insomnia Last Admin: 05/26/21 21:23 Dose: 9 mg Documented by: AJIT Ondansetron HCl (Ondansetron Hcl 4 Mg/2 Ml Vial) 4 mg IVPUSH Q4H PRN PRN Reason: Nausea and Vomiting Last Admin: 05/27/21 09:25 Dose: 4 mg Documented by: KAILA Oxycodone HCl (Oxycodone Hcl Immed Release 5 Mg Tablet) 5 mg PO Q4H PRN PRN Reason: Pain, Severe (Pain Scale 7-10) Last Admin: 05/27/21 09:25 Dose: 5 mg Documented by: KAILA Pharmacy Consult (Consult Rx Perform Med Rec) 1 each MISCELLANE ONCE PRN PRN Reason: Consult order Polyethylene Glycol (Polyethylene Glycol 3350 17 Gm Powd.Pack) 17 gm PO DAILY [facility] Senna (Sennosides 8.6 Mg Tablet) 17.2 mg PO BEDTIME PRN PRN Reason: Constipation Last Admin: 05/26/21 21:22 Dose: 17.2 mg Documented by: AJIT Sodium Chloride (0.9 % Sodium Chloride Flush 3 Ml Syringe) 3 ml IVFLUSH QSHIFT [facility] Last Admin: 05/27/21 09:25 Dose: 3 ml Documented by: KAILA Valacyclovir HCl (Valacycyclovir Hcl 500 Mg Tablet) 500 mg PO BID [facility] Last Admin: 05/27/21 09:25 Dose: 500 mg Documented by: KAILA Labs CBC & Chem 7: 05/23/21 00:08 05/23/21 09:51 Labs: Laboratory Results - last 24 hr 05/26/21 14:34 PT 12.3 INR 1.1 Assessment and Plan (1) Pulmonary embolism: Status: Acute (2) PNA (pneumonia): Status: Acute (3) Syncope: Status: Acute (4) Bipolar disorder: Status: Acute Assessment and Plan: hospital d#6 50yo F with HTN, HIV, protein S deficiency, recurrent DVT/PE on rivaroxaban s/p IVC filter was admitted to [facility] but then transferred here for evaluation due to syncope found to have multifocal PNA and small RLL segmental PE # syncope - no events on telemetry - per Heme doubt due to PE - has not recurred # multifocal PNA - doxycycline + atovaquone d#11/20 per ID - will check Fungitell + LDH + PJP PCR - BCx negative # recurrent PE - current on therapeutic enoxaparin 1 mg/kg q12h, f/u with hematology as outpt [seen at [facility]] - has IVC filter for PEs despite being on rivaroxaban # HIV infection - unknown viral load + CD4 + hepatitis status- will check - will request records from [facility] ID and also try to get ARV fill hx from pharmacy if she can recall which one- ?Whitney # mood disorder - transferred from [facility] inpatient psychiatry on [address]. despite this, and despite multiple requests and attempts to reach [facility], they have not sent any records - continue lurasidone, bupropion, [place], gabapentin, escitalopram, diazepam prn, hydroxyzine prn - awaiting psychiatry placement Quality Stroke Does the patient have a stroke diagnosis?: No VTE Prior VTE?: Yes VTE Risk Level:: Medical - moderate - high VTE Device Contraindication: Treatment Not Indicated VTE Drug Contraindication: N/A - Med Ordered
[2021-05-27] MEDS: Magnesium Citrate 300 ML SOLUTION PO (13:57)
[2021-05-27] MEDS: hydrOXYzine HCL 50 MG TABLET PO ×2 (13:58→21:39)
--- NOTE | 2021-05-27 14:29 | MHC.CM.PN ---
SHAHRZAD GARCIA MD IS SEEKING RECORDS FROM [facility]. PER US, A FAX WAS SENT AND A VM WAS LEFT IN AN ATTEMPT TO OBTAIN THESE RECORDS. CM CALLED EVERY NUMBER LISTED FOR THE FACILITY ([phone], , , ) EVERY NUMBER LEADS TO A VM. MESSAGES HAVE BEEN LEFT REQUESTING A RETURN CALL.
--- NOTE | 2021-05-27 15:05 | P.EN_ITS ---
Event Note Date of Service: 05/27/21 Event Note: Per records frequest from [facility]' ID consult 02/07/[address] Calvin for HIV care last seen 01/08/21, when CD4 663 and HIV-1 RNA 47 Pt's regimen is DOVATO = dolutegravir 50 mg + lamivudine 300 mg daily- will order each component separately as we don't have the single tab regimen here
--- NOTE | 2021-05-27 15:54 | MHC.CM.PN ---
PT CLEARED TO DC HOME BUT WILL NEED [facility] FOR LOVENOX TEACHINGS. REFERRALS SENT TO [facility]. PT WILL DC FRIDAY, HOME WITH [facility]
[2021-05-27] MEDS: lamiVUDine 150 MG TABLET 300 MG PO (17:03)
[2021-05-27] MEDS: Dolutegravir Sodium 50 MG TABLET PO (18:11)
[2021-05-27] MEDS: Sennosides 8.6 MG TABLET 17.2 MG PO (19:26)
[2021-05-27] MEDS: bisacodyL 5 MG TABLET.DR PO (19:28)
[2021-05-27 19:46] VITALS: BP 119/78; PULSE 83; RESP 20; TEMP 36.6; O2SAT 99
[2021-05-27 20:14] VITALS: RESP 16
[2021-05-27] MEDS: Melatonin 3 MG TABLET 9 MG PO (20:15)
[2021-05-27] MEDS: Doxepin HCl 10 MG CAPSULE PO (20:15)
[2021-05-27] MEDS: Escitalopram Oxalate 10 MG TABLET PO (20:16)
[2021-05-27] MEDS: Lurasidone HCl 40 MG TABLET PO (20:16)
[2021-05-27 23:04] VITALS: BP 134/87; PULSE 82; RESP 16; TEMP 36.8; O2SAT 96
[2021-05-28] MEDS: HYDROmorphone HCl 0.5 MG/0.5 ML SYRINGE IVPUSH ×4 (00:27→14:00)
[2021-05-28] MEDS: oxyCODONE HCl Immed Release 5 MG TABLET PO (02:54)
[2021-05-28 03:32] VITALS: BP 124/83; PULSE 80; RESP 18; TEMP 37; O2SAT 96
[2021-05-28 07:01] LABS: Basophils Percent Auto 0.3 % (0-2); Eosinophils Absolute Auto 0.1 X10*3/uL (0.0-0.4); Eosinophils Percent Auto 2.6 % (0-4); Hemoglobin 11.7 g/dl (12.0-16.0); Imm Gran Abs Auto 0.01 X10*3/uL (0.00-0.03); Imm Gran Pct Auto 0.3 % (0.0-0.4); Lymphocytes Absolute Auto 1.6 X10*3/uL (1.2-4.9); MANUAL DIFF FLAG SCAN; Mean Corpuscular HGB Conc 34.4 g/dl (31.0-35.0); Mean Corpuscular Hemoglobin 32.1 pg (27.0-33.0); Mean Corpuscular Volume 93.2 fL (80.0-98.0); Mean Platelet Volume 11.5 fL (9.4-12.3); Monocytes Absolute Auto 0.4 X10*3/uL (0.1-1.2); Monocytes Percent Auto 11.3 % (2-11); Neutrophils Absolute Auto 1.1 x10*3/uL (2.0-8.3); Neutrophils Percent Auto 34.5 % (45-73); Platelet Count 194 X10*3/uL (160-400); Red Blood Count 3.65 X10*6/uL (4.20-5.50); Red Cell Distribution Width 10.8 % (11.0-16.0); SCAN SMEAR FLAG 1; White Blood Count 3.1 X10*3/uL (4.8-10.8)
[2021-05-28 07:34] LABS: Alanine Aminotransferase 32 U/L (0-31); Albumin Level 3.5 g/dL (3.5-5.0); Alkaline Phosphatase 80 U/L (39-117); Anion Gap 9 (12-20); Aspartate Amino Transferase 32 U/L (5-31); Bilirubin Total 0.2 mg/dL (0.0-1.0); Blood Urea Nitrogen 11 mg/dL (9-16); Carbon Dioxide 32 mmol/L (22-29); Chloride 98 mmol/L (96-108); Creatinine Clr Calc Pharmacy 99.2; Estimated Glomerular Filt Rate > 60; Glucose Fasting 126 mg/dL (60-99); Potassium 4.4 mmol/L (3.3-5.1); Sodium 135 mmol/L (135-145); Total Protein 7.5 g/dL (6.5-8.0)
[2021-05-28 07:41] VITALS: BP 103/63; PULSE 79; RESP 18; TEMP 36.4; O2SAT 97
[2021-05-28 07:50] LABS: SLIDE REVIEW VERIFIED
[2021-05-28 09:15] LABS: Lactate Dehydrogenase 131 U/L (122-220)
[2021-05-28 09:31] LABS: HBS Num1 28.65 mIU/mL (0-7.99); HBsAGNum1 0.21 S/CO (0.00-0.99); Hepatitis B Surface Antigen Negative (Negative); ~HepC Num1 0.07 S/CO (0.00-0.79); ~Hepatitis B Surface Antibody REACTIVE (Nonreactive); ~Hepatitis C Antibody Nonreactive (Nonreactive)
[2021-05-28] MEDS: Dolutegravir Sodium 50 MG TABLET PO (09:54)
[2021-05-28] MEDS: Docusate Sodium 100 MG CAPSULE PO (09:54)
[2021-05-28] MEDS: lamiVUDine 150 MG TABLET 300 MG PO (09:54)
[2021-05-28] MEDS: 0.9 % Sodium Chloride Flush 3 ML SYRINGE IVFLUSH (09:54)
[2021-05-28] MEDS: buPROPion HCl XL 150 MG TAB.ER.24H PO (09:54)
[2021-05-28] MEDS: Enoxaparin Sodium 100 MG/ML SYRINGE 85 MG SUBCUT (09:55)
[2021-05-28] MEDS: Gabapentin 300 MG CAPSULE PO ×2 (09:55→15:06)
[2021-05-28] MEDS: Dextroamphetamine/Amphetamine XR 10 MG CAP.ER.24H 30 MG PO (09:55)
[2021-05-28] MEDS: polyethylene glycoL 3350 17 GM POWD.PACK PO (09:56)
[2021-05-28] MEDS: diazePAM 5 MG TABLET 10 MG PO (10:04)
[2021-05-28 10:07] LABS: HBc Num1 5.14 S/CO (0.00-0.79)
--- NOTE | 2021-05-28 11:04 | MHC.CM.PN ---
Per ROUNDS discussion/MD, Patient will be medically cleared for dc to home today with [facility] has accepted Patient and dc summary will be faxed to them (Terri @ [phone]) as soon as it is available.
[2021-05-28 11:07] VITALS: BP 109/57; PULSE 80; RESP 18; TEMP 36.4; O2SAT 97
[2021-05-28] MEDS: hydrOXYzine HCL 50 MG TABLET PO (12:59)
[2021-05-28] MEDS: Sodium Phosphate,Mono-Dibasic 133 ML ENEMA PR (12:59)
--- NOTE | 2021-05-28 12:59 | P.F2F_ITS ---
Service Date Service Date: 05/28/21 Encounter Date of encounter: 05/28/21 Reasons for Services Reason for correction: administration of IV, SQ, or IM injection, medication management, medication treatment and teach disease management MD Overseeing Care: Matilde Schuster Homebound: Leaving the home is medically contraindicated at this time without the asist of a device and/or another person due th the listed conditions above and below. Reason homebound: immunosuppression / infection risk and weakness related to hospital stay Certification: Based on the above findings, I certify that this patient is confined to the home and needs intermittent correction care, physical therapy and/or speech therapy, or continues to need occupational therapy. The patient is under my care, and I have initiated the establishment of the plan of care. The patient will be followed by a physician who will periodically review the plan of care.
[2021-05-28] MEDS: Throat Lozenge, Medicated LOZENGE 1 LOZENGE MUCOUS MEM (13:04)
--- NOTE | 2021-05-28 13:14 | P.DS_ITS ---
DS: Providers Provider Date of Service: 05/28/21 Date of admission: 05/22/21 23:22 Date of discharge: 05/28/21 Primary care physician: Matilde Schuster MD Consults: 05/22/21 23:31 Consult to Hematology / Oncology Routine Consulting Provider: Karthikeyan Baeza Reason for consultation: hx PE; pt on xarelto; now has PE again; started lovenox. Consult to Infectious Diseases Routine Consulting Provider: Stephanie Doty Reason for consultation: PNA; hx HIV 05/23/21 01:03 Consult to Psychiatry Routine Consulting Provider: Psych Covering Reason for consultation: feeling low /stressed 05/24/21 16:55 Consult to Psychiatry Routine Consulting Provider: Psych Covering Reason for consultation: patient requesting placement at a psych facility after discharge 05/25/21 12:51 Consult to Crisis Stat Reason for consultation: medically cleared Has provider been notified: No DS: Diagnosis Discharge Diagnosis (1) HIV (human immunodeficiency virus infection): Status: Acute (2) Pulmonary embolism: Status: Acute (3) PNA (pneumonia): Status: Acute (4) Syncope: Status: Acute (5) Bipolar disorder: Status: Acute DS: Summary Hospital Course Hospital Course: from admission history and physical by hospitalist Geo Matthews, 05/22/21: 50-year-old female with a past medical history of hypertension, HIV, protein S deficiency, 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 Patient reported that she has been feeling low and stressed; she went to the psychiatric place where suddenly felt chest discomfort/headache and fainted and fell onto her back and hit her head. denies any seizure-like activity.? Episode lasted for few seconds.? Denies any tongue bite or stool incontinence. Patient reports that she has been having cough with greenish to yellow sputum production for past 1 week; complains of chest discomfort with no associated symptoms. Patient currently denies any chest pain or palpitations. Denies any urinary symptoms.? Denies any nausea vomiting diarrhea. Patient reports that she has been compliant with her home medications. she has IVC filter placed in the past. Of note patient reports that she was recently admitted to the [facility] on [facility] for a week because she was unable to walk and mentioned that all the tests came back negative.? Currently denies any symptoms of unable to walk/neurological deficits. Review of all other systems is negative except mentioned above ER course: Per ER team patient's CT chest showed multifocal pneumonia/right segmental pulmonary embolism.? Given antibiotics.? EKG nonischemic.? CT head and CT cervical spine showed no acute findings.? Admitted for further management. This 50yo F with HTN, HIV, protein S deficiency, recurrent DVT/PE on rivaroxaban s/p IVC filter, and bipolar disorder was admitted to [facility] for uncontrolled judith and suicidal ideation but then transferred here for evaluation due to syncope. She was found to have multifocal PNA and small RLL segmental PE. Hospital course by problem: # syncope No events on telemetry. Syncope did not recur. Per Hematology, doubt due to PE, which was small/segmental. # recurrent PE Given breakthrough on rivaroxaban + IVC, was placed on therapeutic enoxaparin 1 mg/kg q12h. Seen by Hematology and recommended follow up with her outpatient woodyard operator in [place]. Transitioned to enoxaparin 1.5 mg/kg q24h and will need VNA for administration. # multifocal PNA # HIV infection Infectious Disease was consulted. Initially treated with doxycycline and atovaquone. Blood cultures negative. Respiratory virus panel positive for adenovirus. Requested records from [facility] in [place] and it turns out that she is on Dovato [though unclear how adherent she is]; last CD4 on 01/08/21 was 663, with viral load of 47. Atovaquone was stopped. Dovato was resumed and prescribed and she should follow up with her infectious disease specialist, Dr Jona Calvin, in [place]. Repeat CD4 and viral load are pending at the time of discharge. She is HBV immune and HCV negative. - BCx negative # bipolar depression Transferred from [facility] inpatient psychiatry on [address].? Psychiatry was consulted and continued lurasidone, bupropion, Adderall, escitalopram, diazepam prn, hydroxyzine prn. Gabapentin added for better control of anxiety. Upon psychiatric re-assessment on 05/28/21, she agreed to resume inpatient hospitalization for control of bipolar judith. Time Spent with Patient Time attestation: Total time spent providing and/or coordinating discharge services: Discharge coordination time: Greater than 30 minutes Quality: Stroke Does the patient have a stroke diagnosis?: No Physical Exam Vital Signs: Vital Signs: Last Vital Signs Temp 97.6 F 05/28/21 11:07 Pulse 80 05/28/21 11:07 Resp 18 05/28/21 11:07 BP 109/57 L 05/28/21 11:07 Pulse Ox 97 05/28/21 11:07 Body Mass Index 25.0 Gen: in no acute distress HEENT: sclera anicteric, moist mucus membranes Neck: supple Lungs: clear to auscultation bilaterally Heart: regular rate and rhythm, no murmurs Abd: soft, non-tender, non-distended Ext: no edema Skin: warm/well-perfused Neuro: alert and oriented x3, no focal findings Psych: appropriate affect DS: Data Data Completed and Pending Completed studies during hospitalization [Text1]: Laboratory Results WBC 3.1 X10*3/uL (4.8-10.8) L 05/28/21 06:18 RBC 3.65 X10*6/uL (4.20-5.50) L 05/28/21 06:18 Hgb 11.7 g/dl (12.0-16.0) L 05/28/21 06:18 Hct 34.0 % (37.0-47.0) L 05/28/21 06:18 MCV 93.2 fL (80.0-98.0) 05/28/21 06:18 MCH 32.1 pg (27.0-33.0) 05/28/21 06:18 MCHC 34.4 g/dl (31.0-35.0) 05/28/21 06:18 RDW 10.8 % (11.0-16.0) L 05/28/21 06:18 Plt Count 194 X10*3/uL (160-400) D 05/28/21 06:18 MPV 11.5 fL (9.4-12.3) 05/28/21 06:18 Immature Gran % (Auto) 0.3 % (0.0-0.4) 05/28/21 06:18 Neut % (Auto) 34.5 % (45-73) L 05/28/21 06:18 Lymph % (Auto) 51.0 % (20-40) H 05/28/21 06:18 [place] % (Auto) 11.3 % (2-11) H 05/28/21 06:18 Eos % (Auto) 2.6 % (0-4) 05/28/21 06:18 Baso % (Auto) 0.3 % (0-2) 05/28/21 06:18 Lymph # (Auto) 1.6 X10*3/uL (1.2-4.9) 05/28/21 06:18 [place] # (Auto) 0.4 X10*3/uL (0.1-1.2) 05/28/21 06:18 Eos # (Auto) 0.1 X10*3/uL (0.0-0.4) 05/28/21 06:18 Baso # (Auto) 0.0 X10*3/uL (0.0-0.2) 05/28/21 06:18 Abs Immat Gran (auto) 0.01 X10*3/uL (0.00-0.03) 05/28/21 06:18 Absolute Neuts (auto) 1.1 x10*3/uL (2.0-8.3) L 05/28/21 06:18 Absolute Nucleated RBC 0.000 X10*3/uL (0.0-0.012) 05/28/21 06:18 Nucleated RBC % (auto) 0.0 /100WBC (0.0-0.2) 05/28/21 06:18 Smear Tech's Comments VERIFIED 05/28/21 06:18 PT 12.3 SEC (9.9-13.0) 05/26/21 14:34 INR 1.1 (0.9-1.1) 05/26/21 14:34 APTT 37.0 SEC (24.1-38.0) 05/23/21 00:08 Sodium 135 mmol/L (135-145) 05/28/21 06:18 Potassium 4.4 mmol/L (3.3-5.1) 05/28/21 06:18 Chloride 98 mmol/L (96-108) 05/28/21 06:18 Carbon Dioxide 32 mmol/L (22-29) H 05/28/21 06:18 Anion Gap 9 (12-20) L 05/28/21 06:18 BUN 11 mg/dL (9-16) 05/28/21 06:18 Creatinine 0.80 mg/dL (0.5-1.4) 05/28/21 06:18 Estim Creat Clear Calc 99.2 05/28/21 06:18 Estimated GFR > 60 05/28/21 06:18 Random Glucose 95 mg/dL (60-115) 05/23/21 09:51 Fasting Glucose 126 mg/dL (60-99) H 05/28/21 06:18 Lactic Acid 0.5 mmol/L (0.5-2.0) 05/22/21 23:13 Calcium 9.0 mg/dL (8.4-10.2) D 05/28/21 06:18 Total Bilirubin 0.2 mg/dL (0.0-1.0) 05/28/21 06:18 AST 32 U/L (5-31) H D 05/28/21 06:18 ALT 32 U/L (0-31) H 05/28/21 06:18 Alkaline Phosphatase 80 U/L (39-117) 05/28/21 06:18 Lactate Dehydrogenase 131 U/L (122-220) 05/28/21 08:27 Troponin I High Sens < 3.5 ng/L (<3.5-17.0) 05/22/21 23:13 B-Natriuretic Peptide < 10 pg/mL (<100) 05/22/21 19:40 Total Protein 7.5 g/dL (6.5-8.0) 05/28/21 06:18 Albumin 3.5 g/dL (3.5-5.0) 05/28/21 06:18 Respiratory Panel Womack See Note 05/24/21 15:35 Adenovirus (Rapid PCR) Detected (Not Detect.) A 05/24/21 15:35 B.pert (TEM-PCR) Not Detected (Not Detect.) 05/24/21 15:35 B.parapertussis DNA PCR Not Detected (Not Detect.) 05/24/21 15:35 C. pneumoniae DNA (PCR) Not Detected (Not Detect.) 05/24/21 15:35 Coronavirus OC43 (PCR) Not Detected (Not Detect.) 05/24/21 15:35 Coronavirus HKU1 (PCR) Not Detected (Not Detect.) 05/24/21 15:35 Coronavirus 229E (PCR) Not Detected (Not Detect.) 05/24/21 15:35 COVID-19 (GONSALO) Negative (Negative) 05/22/21 19:40 COVID-19 Clin Com See Note 05/22/21 19:40 Coronavirus NL63 (PCR) Not Detected (Not Detect.) 05/24/21 15:35 Hep Bs Antigen Negative (Negative) 05/28/21 08:27 Hep Bs Antibody REACTIVE (Nonreactive) 05/28/21 08:27 Hep B Core Total Ab Reactive (Nonreactive) 05/28/21 08:27 Hepatitis C Ab (EIA) Nonreactive (Nonreactive) 05/28/21 08:27 Human Metapneumovir PCR Not Detected (Not Detect.) 05/24/21 15:35 Influenza A (RT-PCR) Not Detected (Not Detect.) 05/24/21 15:35 Influenza B (RT-PCR) Not Detected (Not Detect.) 05/24/21 15:35 M. pneumoniae (PCR) Not Detected (Not Detect.) 05/24/21 15:35 Parainfluenza 1 (PCR) Not Detected (Not Detect.) 05/24/21 15:35 Parainfluenza 2 (PCR) Not Detected (Not Detect.) 05/24/21 15:35 Parainfluenza 3 (PCR) Not Detected (Not Detect.) 05/24/21 15:35 Parainfluenza 4 (PCR) Not Detected (Not Detect.) 05/24/21 15:35 RSV (PCR) Not Detected (Not Detect.) 05/24/21 15:35 Entero/Rhino (PCR) Not Detected (Not Detect.) 05/24/21 15:35 SARS-CoV-2 RNA (RT-PCR) Not Detected (Not Detect.) 05/24/21 15:35 S. pyogenes GrpA ALTAGRACIA Negative (Negative) 05/22/21 20:[address] 05/22/21 18:42 IMPRESSION: No acute intracranial pathology. No acute cervical spinal traumatic sequela. Chest X-Ray 05/22/21 18:42 IMPRESSION: Unremarkable examination. Head CT 05/22/21 18:42 IMPRESSION: No acute intracranial pathology. No acute cervical spinal traumatic sequela. Chest CTA 05/22/21 21:07 IMPRESSION: Multifocal airspace opacities predominantly involving the right lung with bronchial wall thickening and mucus impaction. These findings are concerning for a multifocal infectious or inflammatory process of the lungs with extension into the small airways. Subtle segmental pulmonary emboli in the right lower lobe. Mild centrilobular and paraseptal emphysema. VTE: positive This critical result was discussed with Shyam ZHANG at 05/22/2021 10:34 PM and it was ascertained that the content and urgency of the report was understood at the time of direct communication. Pelvis Ultrasound 05/24/21 14:21 IMPRESSION: IUD in the uterus in satisfactory position. Discharge Plan Discharge Patient Disposition: Xfer Psychiatric Hosp Discharge Diagnosis: syncope, multifocal pneumonia, pulmonary emboli, HIV infection, mood disorder Referrals: Eduardo DUMONT [Other] - 1 Week Jona Calvin [Other] - 1 Week (Infectious Disease specialist) [facility] [Outside] - 1 Week (Hematology) Matilde Schuster MD [Primary Care Provider] - 1 Week Discharge Medications: New polyethylene glycol 3350 17 gram Powder In Packet 17 g PO DAILY Qty: 30 RF: 0 gabapentin 300 mg Capsule 300 mg PO BID Qty: 60 RF: 0 doxycycline hyclate 100 mg Tablet 100 mg PO Q12H Qty: 10 RF: 0 Dovato 50-300 mg tablet 1 tab PO DAILY Qty: 30 RF: 1 enoxaparin [Lovenox] 120 mg/0.8 mL syringe 120 mg subcut DAILY Qty: 30 RF: 2 Continued hydroxyzine pamoate 50 mg capsule 1 cap PO TID PRN (Reason: Anxiety) RF: 0 valacyclovir 500 mg Tablet 500 mg PO BID RF: 0 docusate sodium 100 mg capsule 1 cap PO BID RF: 0 Latuda 40 mg tablet 1 tab PO BEDTIME RF: 0 Discontinued Xarelto 20 mg tablet 1 tab PO BEDTIME RF: 0 No Action nicotine (polacrilex) 2 mg Gum 4 mg buccal Q2H PRN (Reason: Nicotine Cravings) Qty: 60 RF: 0 lamivudine 150 mg Tablet 300 mg PO DAILY Qty: 0 RF: 0 doxycycline hyclate 100 mg Tablet 100 mg PO Q12H Qty: 14 RF: 0 enoxaparin 100 mg/mL Syringe 85 mg subcut Q12H Qty: 0 RF: 0 hydrocodone-acetaminophen 5-325 mg Tablet 1 tab PO Q8H PRN (Reason: severe pain) Qty: 14 RF: 0 melatonin 3 mg Tablet 9 mg PO BEDTIME PRN (Reason: Insomnia) Qty: 0 RF: 0 doxepin 10 mg Capsule 10 mg PO BEDTIME Qty: 0 RF: 0 gabapentin 300 mg Capsule 300 mg PO BID Qty: 0 RF: 0 gabapentin 300 mg Capsule 300 mg PO DAILY PRN (Reason: anxiety) Qty: 0 RF: 0 escitalopram oxalate 10 mg Tablet 10 mg PO BEDTIME Qty: 7 RF: 0 doxepin 10 mg capsule 10 mg PO DAILY PRN (Reason: Sleep) Qty: 7 RF: 0 bupropion HCl 100 mg tablet sustained-release 12 hr 1 tab PO BID Qty: 14 RF: 0 diazepam 10 mg tablet 1 tab PO BID PRN (Reason: Anxiety) Qty: 14 RF: 0 dextroamphetamine-amphetamine [Adderall XR] 30 mg capsule,extended release 24hr 1 cap PO BEDTIME Qty: 7 RF: 0 Discharge Orders: Discharge Order (Routine); Ordered 05/28/21 Ordered By: Subha Tolbert Diet: advance to usual diet Activity on Discharge: As tolerated Stand Alone Forms: Patient Portal Discharge page Print Language: Stateless Care Plan Goals: lung health control of HIV infection mental health Health Concerns: syncope, multifocal pneumonia, pulmonary emboli, HIV infection, mood disorder Plan of Treatment: syncope: resolved multifocal pneumonia: doxycycline 100 mg twice daily for 5 more days pulmonary emboli: use Lovenox 120 mg once daily until you are seen by your [facility] woodyard operator HIV infection: resume Dovato 1 tab once daily and see your Infectious Disease specialist as soon as possible. mood disorder: to inpatient psychiatry Assessment: See Discharge Summary Patient Instructions: Syncope (ED), Pneumonia (DC) Discharge Date/Time: 05/28/21 19:17
[2021-05-28 13:19] LABS: HBc Num2 5.04 S/CO
[2021-05-28 13:20] LABS: HBc Num3 5.16 S/CO; Hepatitis B Core Antibody Reactive (Nonreactive)
--- NOTE | 2021-05-28 13:56 | MHC.CM.PN ---
DC Summary has been successfully faxed to Eduardo DUMONT @ [phone].
--- NOTE | 2021-05-28 14:19 | MHC.CM.PN ---
Patient will NOT be dc to home today; VNA has been notified of cancelled dc.Per Psych/Sissy,plan is now Inpatient Psych at [facility].CM will follow.
--- NOTE | 2021-05-28 14:28 | HO.PM.IMPN ---
Subjective Subjective Date of Service: 05/28/21 Interval History: Still constipated; requests enema. Pleuritic pain improved. Agreeable to voluntary inpatient psychiatric hospitalization per CARE Team. Review of Systems Review of Systems: Yes all other systems are reviewed and are negative Physical Exam Vital Signs: Vital Signs: Last Vital Signs Temp 97.6 F 05/28/21 11:07 Pulse 80 05/28/21 11:07 Resp 18 05/28/21 11:07 BP 109/57 L 05/28/21 11:07 Pulse Ox 97 05/28/21 11:07 Body Mass Index 25.0 Gen: in no acute distress HEENT: sclera anicteric, moist mucus membranes Neck: supple Lungs: clear to auscultation bilaterally Heart: regular rate and rhythm, no murmurs Abd: soft, non-tender, non-distended Ext: no edema Skin: warm/well-perfused Neuro: alert and oriented x3, no focal findings Psych: appropriate affect Objective Data Active Medications Acetaminophen (Acetaminophen 325 Mg Tablet) 650 mg PO Q6H PRN PRN Reason: Pain, Mild (Pain Scale 1-3) Amphetamine/Dextroamphetamine (Dextroamphetamine/Amphetamine Xr 10 Mg Cap.Er.24h) 30 mg PO DAILY [facility] Last Admin: 05/28/21 09:55 Dose: 30 mg Documented by: JENELLE Benzocaine (Throat Lozenge, Medicated Lozenge) 1 lozenge MUCOUS MEM Q2H PRN PRN Reason: Sore Throat Last Admin: 05/28/21 13:04 Dose: 1 lozenge Documented by: JENELLE Bisacodyl (Bisacodyl 5 Mg Tablet.Dr) 5 mg PO DAILY PRN PRN Reason: Constipation Last Admin: 05/27/21 19:28 Dose: 5 mg Documented by: RENNY Bupropion HCl (Bupropion Hcl Xl 150 Mg Tab.Er.24h) 150 mg PO DAILY [facility] Last Admin: 05/28/21 09:54 Dose: 150 mg Documented by: JENELLE Diazepam (Diazepam 5 Mg Tablet) 10 mg PO BID PRN PRN Reason: Anxiety Last Admin: 05/28/21 10:04 Dose: 10 mg Documented by: JENELLE Docusate Sodium (Docusate Sodium 100 Mg Capsule) 100 mg PO BID [facility] Last Admin: 05/28/21 09:54 Dose: 100 mg Documented by: JENELLE Dolutegravir Sodium (Dolutegravir Sodium 50 Mg Tablet) 50 mg PO DAILY [facility] Last Admin: 05/28/21 09:54 Dose: 50 mg Documented by: JENELLE Doxepin HCl (Doxepin Hcl 10 Mg Capsule) 10 mg PO BEDTIME [facility] Last Admin: 05/27/21 20:15 Dose: 10 mg Documented by: RENNY Doxycycline Hyclate (Doxycycline Hyclate 100 Mg Tablet) 100 mg PO Q12H [facility] Last Admin: 05/28/21 04:28 Dose: 100 mg Documented by: PAT Enoxaparin Sodium (Enoxaparin Sodium 100 Mg/Ml Syringe) 85 mg SUBCUT Q12H [facility] Last Admin: 05/28/21 09:55 Dose: 85 mg Documented by: JENELLE Escitalopram Oxalate (Escitalopram Oxalate 10 Mg Tablet) 10 mg PO BEDTIME [facility] Last Admin: 05/27/21 20:16 Dose: 10 mg Documented by: RENNY Gabapentin (Gabapentin 300 Mg Capsule) 300 mg PO DAILY PRN PRN Reason: anxiety Last Admin: 05/27/21 09:33 Dose: 300 mg Documented by: KAILA Gabapentin (Gabapentin 300 Mg Capsule) 300 mg PO BID [facility] Last Admin: 05/28/21 09:55 Dose: 300 mg Documented by: JENELLE Hydromorphone HCl (Hydromorphone Hcl 0.5 Mg/0.5 Ml Syringe) 0.5 mg IVPUSH Q4H PRN; Protocol PRN Reason: Breakthrough Pain Last Admin: 05/28/21 14:00 Dose: 0.5 mg Documented by: JENELLE Hydroxyzine HCl (Hydroxyzine Hcl 50 Mg Tablet) 50 mg PO TID PRN PRN Reason: Anxiety Last Admin: 05/28/21 12:59 Dose: 50 mg Documented by: JENELLE Lamivudine (Lamivudine 150 Mg Tablet) 300 mg PO DAILY [facility] Last Admin: 05/28/21 09:54 Dose: 300 mg Documented by: JENELLE Lurasidone HCl (Lurasidone Hcl 40 Mg Tablet) 40 mg PO BEDTIME [facility] Last Admin: 05/27/21 20:16 Dose: 40 mg Documented by: RENNY Melatonin (Melatonin 3 Mg Tablet) 9 mg PO BEDTIME PRN PRN Reason: Insomnia Last Admin: 05/27/21 20:15 Dose: 9 mg Documented by: RENYN Ondansetron HCl (Ondansetron Hcl 4 Mg/2 Ml Vial) 4 mg IVPUSH Q4H PRN PRN Reason: Nausea and Vomiting Last Admin: 05/27/21 09:25 Dose: 4 mg Documented by: KAILA Pharmacy Consult (Consult Rx Perform Med Rec) 1 each MISCELLANE ONCE PRN PRN Reason: Consult order Polyethylene Glycol (Polyethylene Glycol 3350 17 Gm Powd.Pack) 17 gm PO DAILY [facility] Last Admin: 05/28/21 09:56 Dose: 17 gm Documented by: JENELLE Senna (Sennosides 8.6 Mg Tablet) 17.2 mg PO BEDTIME PRN PRN Reason: Constipation Last Admin: 05/27/21 19:26 Dose: 17.2 mg Documented by: RENNY Sodium Chloride (0.9 % Sodium Chloride Flush 3 Ml Syringe) 3 ml IVFLUSH QSHIFT [facility] Last Admin: 05/28/21 09:54 Dose: 3 ml Documented by: JENELLE Valacyclovir HCl (Valacycyclovir Hcl 500 Mg Tablet) 500 mg PO BID [facility] Last Admin: 05/28/21 09:55 Dose: 500 mg Documented by: JENELLE Labs CBC & Chem 7: 05/28/21 06:18 05/28/21 06:18 Labs: Laboratory Results - last 24 hr 05/28/21 05/28/21 05/28/21 06:18 06:18 08:27 MCV 93.2 MCH 32.1 MCHC 34.4 RDW 10.8 L Plt Count 194 D MPV 11.5 Immature Gran % (Auto) 0.3 Neut % (Auto) 34.5 L Lymph % (Auto) 51.0 H [place] % (Auto) 11.3 H Eos % (Auto) 2.6 Baso % (Auto) 0.3 Lymph # (Auto) 1.6 [place] # (Auto) 0.4 Eos # (Auto) 0.1 Baso # (Auto) 0.0 Abs Immat Gran (auto) 0.01 Absolute Neuts (auto) 1.1 L Absolute Nucleated RBC 0.000 Nucleated RBC % (auto) 0.0 Smear Tech's Comments VERIFIED Anion Gap 9 L Estim Creat Clear Calc 99.2 Estimated GFR > 60 Fasting Glucose 126 H Calcium 9.0 D Total Bilirubin 0.2 AST 32 H D ALT 32 H Alkaline Phosphatase 80 Lactate Dehydrogenase 131 Total Protein 7.5 Albumin 3.5 Hep Bs Antigen Hep Bs Antibody Hep B Core Total Ab Hepatitis C Ab (EIA) 05/28/21 08:27 MCV MCH MCHC RDW Plt Count MPV Immature Gran % (Auto) Neut % (Auto) Lymph % (Auto) [place] % (Auto) Eos % (Auto) Baso % (Auto) Lymph # (Auto) [place] # (Auto) Eos # (Auto) Baso # (Auto) Abs Immat Gran (auto) Absolute Neuts (auto) Absolute Nucleated RBC Nucleated RBC % (auto) Smear Tech's Comments Anion Gap Estim Creat Clear Calc Estimated GFR Fasting Glucose Calcium Total Bilirubin AST ALT Alkaline Phosphatase Lactate Dehydrogenase Total Protein Albumin Hep Bs Antigen Negative Hep Bs Antibody REACTIVE Hep B Core Total Ab Reactive Hepatitis C Ab (EIA) Nonreactive Microbiology Microbiology Results: Microbiology 05/22/21 23:13 Blood Culture - Final Blood - Venous No growth after 5 days. 05/22/21 23:13 Blood Culture - Final Blood - Venous No growth after 5 days. Assessment and Plan (1) Pulmonary embolism: Status: Acute (2) PNA (pneumonia): Status: Acute (3) Syncope: Status: Acute (4) Bipolar disorder: Status: Acute Assessment and Plan: hospital d#6 50yo F with HTN, HIV, protein S deficiency, recurrent DVT/PE on rivaroxaban s/p IVC filter was admitted to [facility] but then transferred here for evaluation due to syncope found to have multifocal PNA and small RLL segmental PE # syncope - no events on telemetry - per Heme doubt due to PE - has not recurred # multifocal PNA - BCx negative, respiratory viral panel positive for adenovirus - doxycycline d#12/21 per ID - d/c atovaquone as CD4 is high # recurrent PE - current on therapeutic enoxaparin 1 mg/kg q12h, f/u with hematology as outpt [seen at [facility]], transition to 1.5 mg/kg q24h - has IVC filter for PEs despite being on rivaroxaban # HIV infection - resume Dovato [dolutegravir plus lamvudine] - last CD4 663 with viral load 47 01/08/21- sees Dr Calvin in [place] - recheck CD4 + viral load pending - she is HBV immune and HCV negative # mood disorder - transferred from [facility] psychiatry on [address] - continue lurasidone, bupropion, [place], gabapentin, escitalopram, diazepam prn, hydroxyzine prn - awaiting psychiatry placement per CARE Team Quality Stroke Does the patient have a stroke diagnosis?: No VTE Prior VTE?: Yes VTE Risk Level:: Medical - moderate - high VTE Device Contraindication: Treatment Not Indicated VTE Drug Contraindication: N/A - Med Ordered
[2021-05-28 15:49] VITALS: BP 105/78; PULSE 89; RESP 18; TEMP 36.7; O2SAT 99
[2021-05-28] MEDS: LORazepam 2 MG/ML VIAL IM (18:44)
[2021-05-28] MEDS: Haloperidol Lactate 5 MG/ML VIAL 10 MG IM (18:44)
[2021-05-28] MEDS: HYDROmorphone HCl 2 MG TABLET PO (18:44)
--- NOTE | 2021-05-28 19:00 | HO.PHPPROGNO ---
Subjective Subjective Date of Service: 05/28/21 Reason For Visit: Syncope/PNA Interim History: This note is to document pt was seen s/p restraint per protocol. At 18:00 I met with patient per request of CARE Team on [facility] unit, as Pt was reportedly standing in the hallway, holding a metal butter knife in one hand, and a fork in the other. Pt was not responsive to verbal deescalation from CARE Team. Section 12b was signed, as pt was refusing CV. Precipitating factors include that per pt, she was told she would be receiving IV dilaudid prior to transfer to , however PO was being offered. I met with patient, and due to threatening behavior, informed her of intent to order haldol 10 mg IM and ativan 2 mg IM to alleviate agitation, anxiety, and dysregulation. Pt appeared relieved and handed utensils to security. She tolerated the IM medication. Pt was calm, cooperative, and A&Ox3 s/p chemical restraint. Patient?s vital signs wnl s/p restraint. No behavioral or safety concerns at this time. Mental Status Exam Mental Status Exam Narrative: A&O. In hospital attire, short hair, well kempt. Good eye contact, attentive, somnolent. No Tics or Tremors. No abnormal involuntary movements. Calm, cooperative. Non-pressured speech, spontaneous with regular rate and rhythm, normal volume and prosody. No prolonged speech latency or dysarthria. Mood is ?better,? affect is tired. Denies SI/SIB/HI upon inquiry. Denies A/VH or delusional thought content. Thoughts are goal oriented, organized. No known cognitive or memory impairment. Insight/ Judgment fair and adequate. Diagnostics Vital Signs (24Hr): Vital Signs - 24 hr 05/27/21 19:46 05/27/21 20:14 05/27/21 23:04 Temperature 97.9 F 98.2 F Pulse Rate 83 82 Respiratory Rate 20 16 16 Blood Pressure 119/78 134/87 Pulse Oximetry 99 96 05/28/21 03:32 05/28/21 07:41 05/28/21 11:07 Temperature 98.6 F 97.6 F 97.6 F Pulse Rate 80 79 80 Respiratory Rate 18 18 18 Blood Pressure 124/83 103/63 109/57 L Pulse Oximetry 96 97 97 05/28/21 15:49 Temperature 98.1 F Pulse Rate 89 Respiratory Rate 18 Blood Pressure 105/78 Pulse Oximetry 99 Body Mass Index 25.0 Labs Results: 05/28/21 06:18 05/28/21 06:18 Labs: Laboratory Results - last 48 hr 05/28/21 05/28/21 05/28/21 06:18 06:18 08:27 WBC 3.1 L RBC 3.65 L Hgb 11.7 L Hct 34.0 L MCV 93.2 MCH 32.1 MCHC 34.4 RDW 10.8 L Plt Count 194 D MPV 11.5 Immature Gran % (Auto) 0.3 Neut % (Auto) 34.5 L Lymph % (Auto) 51.0 H Pender % (Auto) 11.3 H Eos % (Auto) 2.6 Baso % (Auto) 0.3 Lymph # (Auto) 1.6 Pender # (Auto) 0.4 Eos # (Auto) 0.1 Baso # (Auto) 0.0 Abs Immat Gran (auto) 0.01 Absolute Neuts (auto) 1.1 L Absolute Nucleated RBC 0.000 Nucleated RBC % (auto) 0.0 Smear Tech's Comments VERIFIED Sodium 135 Potassium 4.4 Chloride 98 Carbon Dioxide 32 H Anion Gap 9 L BUN 11 Creatinine 0.80 Estim Creat Clear Calc 99.2 Estimated GFR > 60 Fasting Glucose 126 H Calcium 9.0 D Total Bilirubin 0.2 AST 32 H D ALT 32 H Alkaline Phosphatase 80 Lactate Dehydrogenase 131 Total Protein 7.5 Albumin 3.5 Hep Bs Antigen Hep Bs Antibody Hep B Core Total Ab Hepatitis C Ab (EIA) 05/28/21 08:27 WBC RBC Hgb Hct MCV MCH MCHC RDW Plt Count MPV Immature Gran % (Auto) Neut % (Auto) Lymph % (Auto) Pender % (Auto) Eos % (Auto) Baso % (Auto) Lymph # (Auto) Pender # (Auto) Eos # (Auto) Baso # (Auto) Abs Immat Gran (auto) Absolute Neuts (auto) Absolute Nucleated RBC Nucleated RBC % (auto) Smear Tech's Comments Sodium Potassium Chloride Carbon Dioxide Anion Gap BUN Creatinine Estim Creat Clear Calc Estimated GFR Fasting Glucose Calcium Total Bilirubin AST ALT Alkaline Phosphatase Lactate Dehydrogenase Total Protein Albumin Hep Bs Antigen Negative Hep Bs Antibody REACTIVE Hep B Core Total Ab Reactive Hepatitis C Ab (EIA) Nonreactive Imaging Radiology Impressions: ITS Impressions Cervical Spine CT 05/22/21 18:42 IMPRESSION: No acute intracranial pathology. No acute cervical spinal traumatic sequela. Chest X-Ray 05/22/21 18:42 IMPRESSION: Unremarkable examination. Head CT 05/22/21 18:42 IMPRESSION: No acute intracranial pathology. No acute cervical spinal traumatic sequela. Chest CTA 05/22/21 21:07 IMPRESSION: Multifocal airspace opacities predominantly involving the right lung with bronchial wall thickening and mucus impaction. These findings are concerning for a multifocal infectious or inflammatory process of the lungs with extension into the small airways. Subtle segmental pulmonary emboli in the right lower lobe. Mild centrilobular and paraseptal emphysema. VTE: positive This critical result was discussed with Shyam ZHANG at 05/22/2021 10:34 PM and it was ascertained that the content and urgency of the report was understood at the time of direct communication. Pelvis Ultrasound 05/24/21 14:21 IMPRESSION: IUD in the uterus in satisfactory position. Assessment & Plan Assessment & Plan (1) PTSD (post-traumatic stress disorder): Status: Acute Code(s): F43.10 - Post-traumatic stress disorder, unspecified (2) RICKY (generalized anxiety disorder): Status: Acute Code(s): F41.1 - Generalized anxiety disorder (3) Bipolar II disorder: Status: Acute Code(s): F31.81 - Bipolar II disorder Certification I certify that partial hospital treatment is medically necessary due to the symptoms and problems resulting from the patient's mental illness and the failure to treat the patient at the partial hospital level of care would likely result in the patient requiring inpatient psychiatric care which could not be prevented at a less intensive level of care. I spent minutes with the patient and/or on the patient floor today, greater than?50% of which was spent counseling/coordinating care. Discharge Plan Discharge Patient Disposition: Xfer Psychiatric Hosp Discharge Diagnosis: syncope, multifocal pneumonia, pulmonary emboli, HIV infection, mood disorder Referrals: [facility] [Other] - 1 Week Jona Calvin [Other] - 1 Week (Infectious Disease specialist) [facility] [Outside] - 1 Week (Hematology) Matilde Schuster MD [Primary Care Provider] - 1 Week Discharge Medications: New polyethylene glycol 3350 17 gram Powder In Packet 17 g PO DAILY Qty: 30 RF: 0 gabapentin 300 mg Capsule 300 mg PO BID Qty: 60 RF: 0 doxycycline hyclate 100 mg Tablet 100 mg PO Q12H Qty: 10 RF: 0 Dovato 50-300 mg tablet 1 tab PO DAILY Qty: 30 RF: 1 enoxaparin [Lovenox] 120 mg/0.8 mL syringe 120 mg subcut DAILY Qty: 30 RF: 2 Continued hydroxyzine pamoate 50 mg capsule 1 cap PO TID PRN (Reason: Anxiety) RF: 0 doxepin 10 mg capsule 10 mg PO DAILY PRN (Reason: Sleep) RF: 0 valacyclovir 500 mg Tablet 500 mg PO BID RF: 0 bupropion HCl 100 mg tablet sustained-release 12 hr 1 tab PO BID RF: 0 docusate sodium 100 mg capsule 1 cap PO BID RF: 0 diazepam 10 mg tablet 1 tab PO BID PRN (Reason: Anxiety) RF: 0 dextroamphetamine-amphetamine [Adderall XR] 30 mg capsule,extended release 24hr 1 cap PO BEDTIME RF: 0 Latuda 40 mg tablet 1 tab PO BEDTIME RF: 0 Discontinued Xarelto 20 mg tablet 1 tab PO BEDTIME RF: 0 Discharge Orders: Discharge Order (Routine); Ordered 05/28/21 Ordered By: Subha Tolbert Diet: advance to usual diet Activity on Discharge: As tolerated Stand Alone Forms: Patient Portal Discharge page Print Language: Burkinan Care Plan Goals: lung health control of HIV infection mental health Health Concerns: syncope, multifocal pneumonia, pulmonary emboli, HIV infection, mood disorder Plan of Treatment: syncope: resolved multifocal pneumonia: doxycycline 100 mg twice daily for 5 more days pulmonary emboli: use Lovenox 120 mg once daily until you are seen by your [facility] bakery assistant HIV infection: resume Dovato 1 tab once daily and see your Infectious Disease specialist as soon as possible. mood disorder: to inpatient psychiatry Assessment: See Discharge Summary Patient Instructions: Syncope (ED), Pneumonia (DC) Discharge Date/Time: 05/28/21 19:17
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
--- NOTE | 2021-05-28 19:40 | MHC.CARE ---
CARE Team meets with the patient at the request of nursing cooler supervisor. When CARE Team socal worker arrives to [facility], pt is standing in the hallway, holding a metal butter knife in one hand, and a fork in the other. Security, nursing cooler supervisor and hospitalist are also present. CARE Team attempts to verbally deescalate pt without success. CARE Team contacts psych provider, Melba Lowry NP in order to discuss involuntary inpt admission. Melba agrees and signs 12b. During this time, pt hands over utensils to security, and is able to speak with Melba about a plan for medications. After pt receives medications, CARE Team and security transport pt to without issue. Pt is jovial during transport, however is hyperverbal, pressured. CARE Team communicates with lost charge card clerk on M5 regarding events leading up to transfer. Pt appears to have difficulty trusting people, she is suspicious and thought process continues to be disorganized.
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
[2021-05-29 15:10] LABS: Absolute CD3 Count 1276 cells/uL (840-3060); Absolute CD4 Count 841 cells/uL (490-1740); Absolute CD8 Count 418 cells/uL (180-1170); Absolute Lymphocytes 1789 cells/uL (850-3900); CD4 CD8 Ratio 2.01 (0.86-5.00); Percent CD3 Cells 71 % (57-85); Percent CD4 Cells 47 % (30-61); Percent CD8 Cells 23 % (12-42)
[2021-05-29 18:11] LABS: HIV RNA PCR Qn Copies <20 NOT DETECTED copies/mL (NOT DETECTED); HIV RNA PCR Qn Log Copies <1.30 NOT DETECTED (NOT DETECTED)
== END 2021-05-28 19:17 | DRG 139 ==
LOC: HO.ED 20:45 → HO.EDOVER 23:39 → HO.IMC 05-23 15:28 → HO.PM5 05-28 19:11
PROVIDERS: Hospitalist; Internal Medicine; Physician Assistant; Physician Assistant Medical; Admitting Provider Hospitalist; Emergency Provider Internal Medicine; PCP Family Medicine; Visit Provider Family Medicine
DX: J18.9 Pneumonia, unspecified organism (principal); I26.99 Other pulmonary embolism without acute cor pulmonale; D68.59 Other primary thrombophilia; J47.9 Bronchiectasis, uncomplicated; F41.0 Panic disorder [episodic paroxysmal anxiety]; F31.81 Bipolar II disorder; F41.1 Generalized anxiety disorder; K21.9 Gastro-esophageal reflux disease without esophagitis; M54.2 Cervicalgia; R55 Syncope and collapse; K59.00 Constipation, unspecified; F43.10 Post-traumatic stress disorder, unspecified; Z21 Asymptomatic human immunodeficiency virus [HIV] infection status; Z20.822 Contact with and (suspected) exposure to COVID-19; Z87.891 Personal history of nicotine dependence; Z79.899 Other long term (current) drug therapy
CPT/HCPCS: 36415; 70450; 71045; 71275; 72125; 76856; 80048; 80053; 83605; 83615; 83880; 84484; 85025; 85027; 85610; 85730; 86359; 86360; 86704; 86705; 86706; 86803; 87040; 87340; 87536; 87633; 87635; 87651; 93005; 96365; 96367; 96372; 99285; 99291; J0456; J0696; J1170; J1650; J2060; J2270; J2405; Q9967

== ENCOUNTER 2021-05-28 20:45 | Inpatient (IN) | payer OTHER, SELFPAY ==
--- NOTE | ~2021-05-28 | XR_ITS ---
EXAMINATION: XR CHEST CLINICAL INFORMATION: Pulmonary emboli COMPARISON: Previous chest x-ray and chest CTA 05/22/2021 TECHNIQUE: Frontal view of the chest was obtained. FINDINGS: The cardiac and mediastinal contours are stable. The lungs are clear. There is no pleural effusion or pneumothorax. There are postoperative changes following resection of the left distal clavicle. There are soft tissue calcification or ossification the left greater tuberosity. XR/XR chest 1V IMPRESSION: No evidence for acute disease in the chest.
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
[2021-05-28 23:06] VITALS: BP 113/66; PULSE 86; RESP 16; TEMP 36.1; O2SAT 96
[2021-05-29] MEDS: Enoxaparin Sodium 100 MG/ML SYRINGE 85 MG SUBCUT ×3 (02:40→21:51)
[2021-05-29] MEDS: Acetaminophen 325 MG TABLET 650 MG PO (02:46)
--- NOTE | 2021-05-29 03:22 | PC.ADMIT ---
Patient is a 50 year old single, , Slovenian speaking, cisgender female from [facility] noted to [place] [facility] [place] 19:04 from [facility] Room 460. Admission process not immediately completed as patient had become reportedly aggressive during transfer process and was subsequently medicated and sedated. Admission completed from medical records at this time. According to [facility] nursing notes, Prepping pt to be transported to [facility] resulted in aggressive behaviors as patient was now requesting Dilaudid via IV before transfer even though at the time she s't due. Pt was very adamant that if there was IV med, we would have to fight her to get it take it out. MD was notified of the situation and they made it clear that only P.O. med were now ordered. Pt was made aware and became increasingly aggressive, even after the MD taking over came to talk with her; she shelli for her knife and fork from her tray and began a stand-off with myself and the doctor. We vacated the room, however pt followed and lunged after the doctor while we were awaiting security. Pt. had a stand off with security and all other staff who became involved. Took over 2 hours to deescalate situation. Psych, MD, Cushion Padder, and security became involved. Patient was administered Haldol 10mg IM, Lorazepam 2mg IM, and Dilaudid 2mg PO at 18:44pm. Patient sleeping soundly until approximately 2:30am on 05/29/21. Patient noted to have dry sterile dressing covered with Tegaderm to left side of Neck where previous I.J. site was. Of Note patient is being treated for HIV, Pulmonary Embolism in right lower lobe, and pneumonia with mucus impaction. Patient noted to have Mild Centrilobular and paraseptal emphysema. O2 stats 96% on Room Air. 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 Patient was previously admitted to [facility] for uncontrolled judith and suicidal ideation from 05/21 - 05/23 but then transferred to [facility] due to Syncope. According to medical records, patient felt chest discomfort/headache and fainted and fell onto her back and hit her head.... CT head and CT cervical spine showed no acute findings. Additionally, Patient reports a that she was recently admitted to the [facility] on [facility] for a week because she was unable to walk and mentioned that all the tests came back negative. According to CARE assessment, patient has a significant history of suicide attempts, four of which required medical treatment, and numerous inpatient psychiatric admissions. According to collateral contact with patient's sister, Patient has had a history of unhealthy relationships. Patient is placed on 5 minute Safety Checks and monitored for respiratory distress and/or agitation.
[2021-05-29 08:47] LABS: Hematocrit 34.7 % (37.0-47.0); Hemoglobin 12.1 g/dl (12.0-16.0); Mean Corpuscular HGB Conc 34.9 g/dl (31.0-35.0); Mean Corpuscular Hemoglobin 32.2 pg (27.0-33.0); Mean Corpuscular Volume 92.3 fL (80.0-98.0); Mean Platelet Volume 11.2 fL (9.4-12.3); Platelet Count 191 X10*3/uL (160-400); Red Blood Count 3.76 X10*6/uL (4.20-5.50); Red Cell Distribution Width 11.1 % (11.0-16.0); White Blood Count 2.9 X10*3/uL (4.8-10.8)
[2021-05-29 08:52] LABS: INTERNATIONAL NORM RATIO 1.1 (0.9-1.1); Prothrombin Time 12.4 SEC (9.9-13.0)
[2021-05-29 08:55] LABS: D Dimer 408 NG/ML; Partial Thromboplastin Time 42.8 SEC (24.1-38.0)
[2021-05-29 09:02] LABS: Estimated Average Glucose 94 mg/dL; Hemoglobin A1c % 4.9 %
[2021-05-29 09:08] LABS: Blood Urea Nitrogen 13 mg/dL (9-16); Cholesterol 187 mg/dL; Estimated Glomerular Filt Rate > 60; HDL Cholesterol 47 mg/dL; LDL Cholesterol Calculated 125 mg/dl; Triglycerides 77 mg/dL
[2021-05-29 09:30] LABS: Free T4 (Free Thyroxine) 0.81 ng/dL (0.71-1.85); Thyroid Stimulating Hormone 2.24 uIU/mL (0.32-4.0)
[2021-05-29] MEDS: buPROPion HCl XL 150 MG TAB.ER.24H PO (09:37)
[2021-05-29] MEDS: Dextroamphetamine/Amphetamine XR 10 MG CAP.ER.24H 30 MG PO (09:38)
[2021-05-29] MEDS: Dolutegravir Sodium 50 MG TABLET PO (09:38)
[2021-05-29] MEDS: Gabapentin 300 MG CAPSULE PO ×2 (09:39→20:58)
[2021-05-29] MEDS: Docusate Sodium 100 MG CAPSULE PO ×2 (09:39→20:56)
[2021-05-29] MEDS: lamiVUDine 150 MG TABLET 300 MG PO (09:39)
[2021-05-29] MEDS: Escitalopram Oxalate 10 MG TABLET PO (09:39)
[2021-05-29] MEDS: polyethylene glycoL 3350 17 GM POWD.PACK PO (09:40)
[2021-05-29 10:00] VITALS: BP 109/78; PULSE 85; TEMP 37.1
[2021-05-29 10:11] LABS: Folate 9.7 ng/mL (> or = 4.0); Vitamin B12 659 pg/mL (200-900)
[2021-05-29 14:26] VITALS: BMI 25.5
--- NOTE | 2021-05-29 15:27 | P.PNPSI_ITS ---
Subjective Subjective Date of Service: 05/29/21 Reason For Visit: Hypomania Subjective Notes: Conditional Voluntary, 3 Day and Section 12B Healthcare Proxy: No Guardianship: No Medical Problems Affecting Mental Status: No Interim History: Pt seen x 3. Initially sedate with mild confusion. Meds reviewed with pt's pharmacy [facility], then with pt later in the day. She identifies anxiety, depression, PTSD as her main diagnoses-reports feeling oversedated earlier in the day-? scheduled Gabapentin-will continue to assess. Pt currently denies active SI-she describes a difficult few days with admit to [facility], medical sx presenting, medical admit and now transfer. Discussed settling in and beginning to sort out issues/interventions for pt to participate in her care. She reports the area where she had a temporary IV line feeling sore and worries about infection/clotting. Discussed with hospitalist team and advised. Medication Compliance: Yes Side effects from medications: Yes (possibly Gabapentin precipitating sedation earlier in the day.) Attending Groups: No Review of Systems Acute medical concerns: Yes Post medical transfer Medical Review of Systems: unchanged Review of Systems Reports behavioral changes Psychiatric: Reports abnormal sleep pattern, Reports anxiety, Reports behavioral changes, Reports depression, Reports difficulty concentrating, Reports hopelessness, Reports panic attacks and Reports suicidal ideation Mental Status Exam Mental Status Exam Patient Appearance: Appropriate Patient Orientation: Person, Place, Time and Situation Level of Consciousness: Awake and Alert Patient Behavior: Appropriate, Talkative, Cooperative, Anxious and Good Eye Contact Mood Description: Depressed and Anxious Affect Description: Constricted Patient Cognition Impaired: No Ability to Follow Directions: Good Speech Pattern: Clear, Appropriate and Spontaneous Speech Memory Description: Intact and Episodic Impaired Hallucinations: None Delusions: Not Present Perceptual Disturbances: Depersonalization and Derealization Thought Process: Distracted Thought Content: positive for [place], positive for Circumstantial and positive for Suicidal Ideation Depressive Symptoms: Increased Anxiety, Increased Irritability, Difficulty Sleeping, Feelings of Worthlessness, Hopelessness, Increased Fatigue, Thoughts of /Suicide, Loss of Energy and Difficulty Concentrating Judgement: Fair Diagnostics Vital Signs (24Hr): Vital Signs - 24 hr 05/28/21 23:06 05/29/21 10:00 Temperature 97.0 F 98.7 F Pulse Rate 86 85 Respiratory Rate 16 Blood Pressure 113/66 109/78 Pulse Oximetry 96 Body Mass Index 25.5 Labs Results: 05/29/21 08:09 05/29/21 08:09 Labs: Laboratory Results - last 48 hr 05/29/21 05/29/21 05/29/21 08:09 08:09 08:09 WBC 2.9 L RBC 3.76 L Hgb 12.1 Hct 34.7 L MCV 92.3 MCH 32.2 MCHC 34.9 RDW 11.1 Plt Count 191 MPV 11.2 Absolute Nucleated RBC 0.000 Nucleated RBC % (auto) 0.0 PT 12.4 INR 1.1 APTT 42.8 H D-Dimer 408 BUN 13 Creatinine 0.79 Estim Creat Clear Calc TNP Estimated GFR > 60 Estimat Average Glucose Hemoglobin A1c % Magnesium 2.0 Triglycerides 77 Cholesterol 187 LDL Cholesterol, Calc 125 HDL Cholesterol 47 Vitamin B12 Folate TSH 2.24 Free T4 0.81 05/29/21 05/29/21 08:09 08:09 WBC RBC Hgb Hct MCV MCH MCHC RDW Plt Count MPV Absolute Nucleated RBC Nucleated RBC % (auto) PT INR APTT D-Dimer BUN Creatinine Estim Creat Clear Calc Estimated GFR Estimat Average Glucose 94 Hemoglobin A1c % 4.9 Magnesium Triglycerides Cholesterol LDL Cholesterol, Calc HDL Cholesterol Vitamin B12 659 Folate 9.7 TSH Free T4 Imaging Radiology Impressions: ITS Impressions Chest X-Ray 05/29/21 00:31 IMPRESSION: No evidence for acute disease in the chest. Medications Medications Current Medications Acetaminophen (Acetaminophen 325 Mg Tablet) 650 mg PO Q6H PRN PRN Reason: Pain, Mild (Pain Scale 1-3) Hydrocodone Bitart/Acetaminophen (Hydrocodone Bit/Acetam 5/325 Tablet) 1 tab PO Q8H PRN PRN Reason: severe pain Al Hydroxide/Mg Hydroxide (Magnesium Hydrox/Alum Hydrox 30 Ml Oral.Susp) 30 ml PO Q6H PRN PRN Reason: Heartburn/Nausea Amphetamine/Dextroamphetamine (Dextroamphetamine/Amphetamine Xr 10 Mg Cap.Er.24h) 30 mg PO DAILY [facility] Benzocaine (Throat Lozenge, Medicated Lozenge) 1 lozenge MUCOUS MEM Q2H PRN PRN Reason: Sore Throat Bisacodyl (Bisacodyl 5 Mg Tablet.Dr) 5 mg PO DAILY PRN PRN Reason: Constipation Bupropion HCl (Bupropion Hcl Xl 150 Mg Tab.Er.24h) 150 mg PO DAILY [facility] Diazepam (Diazepam 5 Mg Tablet) 10 mg PO BID PRN PRN Reason: Anxiety Diphenhydramine HCl (Diphenhydramine Hcl 25 Mg Tablet) 50 mg PO Q4H PRN PRN Reason: agitation Docusate Sodium (Docusate Sodium 100 Mg Capsule) 100 mg PO BID [facility] Dolutegravir Sodium (Dolutegravir Sodium 50 Mg Tablet) 50 mg PO DAILY [facility] Doxepin HCl (Doxepin Hcl 10 Mg Capsule) 10 mg PO BEDTIME [facility] Doxycycline Hyclate (Doxycycline Hyclate 100 Mg Tablet) 100 mg PO Q12H [facility] Enoxaparin Sodium (Enoxaparin Sodium 100 Mg/Ml Syringe) 85 mg SUBCUT Q12H [facility] Escitalopram Oxalate (Escitalopram Oxalate 10 Mg Tablet) 10 mg PO BEDTIME [facility] Gabapentin (Gabapentin 300 Mg Capsule) 300 mg PO BID [facility] Gabapentin (Gabapentin 300 Mg Capsule) 300 mg PO DAILY PRN PRN Reason: anxiety Haloperidol (Haloperidol 5 Mg Tablet) 5 mg PO Q4H PRN PRN Reason: agitation Hydroxyzine HCl (Hydroxyzine Hcl 50 Mg Tablet) 50 mg PO TID PRN PRN Reason: Anxiety Lamivudine (Lamivudine 150 Mg Tablet) 300 mg PO DAILY [facility] Lorazepam (Lorazepam 1 Mg Tablet) 2 mg PO Q4H PRN PRN Reason: agitation Lurasidone HCl (Lurasidone Hcl 40 Mg Tablet) 40 mg PO BEDTIME [facility] Magnesium Hydroxide (Milk Of Magnesia 30 Ml Oral.Susp) 30 ml PO DAILY PRN PRN Reason: Constipation Melatonin (Melatonin 3 Mg Tablet) 9 mg PO BEDTIME PRN PRN Reason: Insomnia Nicotine Polacrilex (Nicotine Polacrilex 2 Mg Gum) 4 mg BUCCAL Q2H PRN PRN Reason: Nicotine Cravings Polyethylene Glycol (Polyethylene Glycol 3350 17 Gm Powd.Pack) 17 gm PO DAILY [facility] Senna (Sennosides 8.6 Mg Tablet) 17.2 mg PO BEDTIME PRN PRN Reason: Constipation Valacyclovir HCl (Valacycyclovir Hcl 500 Mg Tablet) 500 mg PO BID [facility] Allergies Allergies Allergy/AdvReac Type Severity Reaction Status Date / Time No Known Allergies Allergy Verified 05/22/21 18:42 Assessment & Plan Assessment & Plan (1) PTSD (post-traumatic stress disorder): Status: Acute Code(s): F43.10 - Post-traumatic stress disorder, unspecified (2) RICKY (generalized anxiety disorder): Status: Acute Code(s): F41.1 - Generalized anxiety disorder (3) Panic disorder without agoraphobia: Status: Acute Code(s): F41.0 - Panic disorder [episodic paroxysmal anxiety] Assessment and Plan: Per previous psych consult, it was noted that Patient is presenting with hypomanic features, question of bipolar disorder as she is prescribed latuda and reports poor sleep. However, pt reports she is diagnosed with PTSD and Depr ession, she denies having bipolar diagnosis. Of note, she is also prescribed adderall for ADHD and disclosed significant trauma history- as such pt's sx of anxiety, mistrust, hyperarousal, pressured speech, hypersexual bx, and perseveration may be a function of severe PTSD, ADHD, and BPD traits. Plan: Continue lovenox, ordered observation protocols (PT, PTT, CBC, Cr). Ordered D Dimer. Ordered Chest XR due to PE. Continue on med regimen for HIV diagnosis. [place] [facility] I saw pt for a psych consult and pt was restarted on gabapentin 300 mg BID to target anxiety, mood stability due to reported past benefit (pt reports she is supposed to be on this medication as part of her OP regimen, indeed it was last filled on 03/15/21). At the time of psych consult, I felt pt was presenting with symptoms that appeared to be a function of severe PTSD and pt denied hx of judith on previous trials of SSRI/SNRI- this assessment was based on clinical interview and review of chart. I started pt on lexapro 10 mg daily for PTSD, depression, and anxiety. I would further recommend discontinuing wellbutrin, as this may be too activating for pt and she is already on adderall XR 30 mg QAM. There is still a question of pt having a r/o of bipolar II disorder, I will defer to primary psych team to assess- in which case, it would be advised to discontinue serotonergic medication. Of note pt sx are not worse on lexapro 10 mg, which was started on 05/25. Continue on OP med regimen of adderall XR 30 mg QAM for ADHD, doxepin 10 mg QHS for insomnia, wellbutrin XL 150 mg QAM for depression, diazepam 10 mg BID PRN an xiety, and latuda 40 mg QD for deperssion and mood stability. Monitor response to medications. Monitor for safety in the milieu. Discharge on stabilization. Patient seen. Chart reviewed. Discussed with team. Obtain collateral contact info?as needed 05/29/21: Continue current regime Collateral contact with providers. I spent 120 minutes with the patient and/or on the patient floor today, greater than?50% of which was spent counseling/coordinating care. Patient educated on: medication risk/benefits and therapeutic strategies Informed Consent: understands and further education needed Reason for contiued inpatient stay Substantial Risk for: harm to self, inability to function, rapid decompensation and med/psych decompensation
[2021-05-29 18:00] VITALS: BP 107/82; PULSE 95; RESP 16; TEMP 35.4; O2SAT 99
[2021-05-29] MEDS: Doxepin HCl 10 MG CAPSULE PO (20:55)
[2021-05-29] MEDS: diphenhydrAMINE HCL 25 MG TABLET 50 MG PO (20:56)
[2021-05-29] MEDS: hydrOXYzine HCL 50 MG TABLET PO (20:57)
[2021-05-29] MEDS: HaloperidoL 5 MG TABLET PO (20:57)
[2021-05-29] MEDS: Melatonin 3 MG TABLET 9 MG PO (20:58)
[2021-05-29] MEDS: Sennosides 8.6 MG TABLET 17.2 MG PO (20:58)
[2021-05-29] MEDS: Lurasidone HCl 40 MG TABLET PO (21:43)
[2021-05-30] MEDS: Dextroamphetamine/Amphetamine XR 10 MG CAP.ER.24H 30 MG PO (08:15)
[2021-05-30] MEDS: lamiVUDine 150 MG TABLET 300 MG PO (08:16)
[2021-05-30] MEDS: Dolutegravir Sodium 50 MG TABLET PO (08:16)
[2021-05-30] MEDS: buPROPion HCl XL 150 MG TAB.ER.24H PO (08:16)
[2021-05-30] MEDS: Docusate Sodium 100 MG CAPSULE PO ×2 (08:16→21:46)
[2021-05-30] MEDS: Gabapentin 300 MG CAPSULE PO ×3 (08:17→21:47)
[2021-05-30] MEDS: Enoxaparin Sodium 100 MG/ML SYRINGE 85 MG SUBCUT ×2 (09:06→22:30)
[2021-05-30 09:20] VITALS: BP 110/66; PULSE 70; RESP 16; TEMP 36.6; O2SAT 98
[2021-05-30] MEDS: HYDROcodone Bit/Acetam 5/325 TABLET 1 TAB PO ×2 (12:57→21:58)
[2021-05-30] MEDS: diazePAM 5 MG TABLET 10 MG PO ×2 (16:51→21:56)
--- NOTE | 2021-05-30 16:51 | PM.EVENT ---
Event Note Date of Service: 05/30/21 Event Note: Called to see patient regarding concern for discomfort at left-sided IJ catheter insertion site. Patient complaining of left-sided back pain with deep breathing, left-sided neck pain, and concern about a clot and requesting for imaging study with dye to look for clots. On examination patient sitting comfortably no acute distress Left side of the neck at site of IV insertion mild tenderness and swelling noted, no hyperemia, no warmth. Lungs clear to auscultation bilaterally diminished breath sound at bases Lower back no CVA tenderness, no muscle spasm, no paravertebral muscle tenderness Extremities no edema Assessment plan Mild left-sided neck tenderness and swelling at the site of previous IV insertion, no evidence of infection. Pleuritic chest pain with deep breathing. Reassured patient no further imaging studies are required at this time, recommend to continue Lovenox. Patient requesting additional pain medication,currently on Tylenol and Lorcet I think this is adequate, additional pain medicine can be considered by the psychiatrist.
--- NOTE | 2021-05-30 17:26 | P.PNPSI_ITS ---
Subjective Subjective Date of Service: 05/30/21 Reason For Visit: Hypomania Subjective Notes: Conditional Voluntary Healthcare Proxy: No Guardianship: No Medical Problems Affecting Mental Status: No Interim History: Psychiatrically I am fine. I don't believe my medical needs are being met. Pt with several concerns about her medical issues-Hospitalist team able to meet with patient to address her concerns which she felt supported by. Discussed that she initially was sent from [place] to [facility]. She had felt an increase in stress and depression as she is supporting her family and parenting without support. She is planning discharge for 05/31 and is feeling ready to return to her out patient team. Medication Compliance: Yes Side effects from medications: No Attending Groups: No Review of Systems Acute medical concerns: No Medical Review of Systems: unchanged Review of Systems Reports behavioral changes Psychiatric: Reports abnormal sleep pattern, Reports anxiety, Reports behavioral changes, Reports irritability and Reports suicidal ideation (denies) Mental Status Exam Mental Status Exam Patient Appearance: Appropriate Patient Orientation: Person, Place, Time and Situation Level of Consciousness: Alert Patient Behavior: Talkative and Good Eye Contact Mood Description: Constricted, Fearful (worry about medical condition) and Angry (irritable at times) Affect Description: Constricted Patient Cognition Impaired: No Ability to Follow Directions: Good Speech Pattern: Spontaneous Speech Memory Description: Intact Hallucinations: None Delusions: Not Present Thought Process: Goal Oriented Thought Content: positive for Goal Oriented Depressive Symptoms: Increased Anxiety, Increased Irritability, Difficulty Sleeping and Thoughts of /Suicide (denies) Abnormal Motor Activity Signs and Symptoms: Restlessness Judgement: Good Diagnostics Vital Signs (24Hr): Vital Signs - 24 hr 05/29/21 18:00 05/30/21 09:20 Temperature 95.8 F L 97.8 F Pulse Rate 95 70 Respiratory Rate 16 16 Blood Pressure 107/82 110/66 Pulse Oximetry 99 98 Body Mass Index 25.5 Labs Results: 05/29/21 08:09 05/29/21 08:09 Labs: Laboratory Results - last 48 hr 05/29/21 05/29/21 05/29/21 08:09 08:09 08:09 WBC 2.9 L RBC 3.76 L Hgb 12.1 Hct 34.7 L MCV 92.3 MCH 32.2 MCHC 34.9 RDW 11.1 Plt Count 191 MPV 11.2 Absolute Nucleated RBC 0.000 Nucleated RBC % (auto) 0.0 PT 12.4 INR 1.1 APTT 42.8 H D-Dimer 408 BUN 13 Creatinine 0.79 Estim Creat Clear Calc TNP Estimated GFR > 60 Estimat Average Glucose Hemoglobin A1c % Magnesium 2.0 Triglycerides 77 Cholesterol 187 LDL Cholesterol, Calc 125 HDL Cholesterol 47 Vitamin B12 Folate TSH 2.24 Free T4 0.81 05/29/21 05/29/21 08:09 08:09 WBC RBC Hgb Hct MCV MCH MCHC RDW Plt Count MPV Absolute Nucleated RBC Nucleated RBC % (auto) PT INR APTT D-Dimer BUN Creatinine Estim Creat Clear Calc Estimated GFR Estimat Average Glucose 94 Hemoglobin A1c % 4.9 Magnesium Triglycerides Cholesterol LDL Cholesterol, Calc HDL Cholesterol Vitamin B12 659 Folate 9.7 TSH Free T4 Imaging Radiology Impressions: ITS Impressions Chest X-Ray 05/29/21 00:31 IMPRESSION: No evidence for acute disease in the chest. Medications Medications Current Medications Acetaminophen (Acetaminophen 325 Mg Tablet) 650 mg PO Q6H PRN PRN Reason: Pain, Mild (Pain Scale 1-3) Hydrocodone Bitart/Acetaminophen (Hydrocodone Bit/Acetam 5/325 Tablet) 1 tab PO Q8H PRN PRN Reason: severe pain Last Admin: 05/30/21 12:57 Dose: 1 tab Documented by: Al Hydroxide/Mg Hydroxide (Magnesium Hydrox/Alum Hydrox 30 Ml Oral.Susp) 30 ml PO Q6H PRN PRN Reason: Heartburn/Nausea Amphetamine/Dextroamphetamine (Dextroamphetamine/Amphetamine Xr 10 Mg Cap.Er.24h) 30 mg PO DAILY COUNT INCLUDES THE [facility] Last Admin: 05/30/21 08:15 Dose: 30 mg Documented by: Benzocaine (Throat Lozenge, Medicated Lozenge) 1 lozenge MUCOUS MEM Q2H PRN PRN Reason: Sore Throat Bisacodyl (Bisacodyl 5 Mg Tablet.Dr) 5 mg PO DAILY PRN PRN Reason: Constipation Bupropion HCl (Bupropion Hcl Xl 150 Mg Tab.Er.24h) 150 mg PO DAILY COUNT INCLUDES THE [facility] Last Admin: 05/30/21 08:16 Dose: 150 mg Documented by: Diazepam (Diazepam 5 Mg Tablet) 10 mg PO BID PRN PRN Reason: Anxiety Last Admin: 05/30/21 16:51 Dose: 10 mg Documented by: Diphenhydramine HCl (Diphenhydramine Hcl 25 Mg Tablet) 50 mg PO Q4H PRN PRN Reason: agitation Last Admin: 05/29/21 20:56 Dose: 50 mg Documented by: Docusate Sodium (Docusate Sodium 100 Mg Capsule) 100 mg PO BID COUNT INCLUDES THE [facility] Last Admin: 05/30/21 08:16 Dose: 100 mg Documented by: Dolutegravir Sodium (Dolutegravir Sodium 50 Mg Tablet) 50 mg PO DAILY COUNT INCLUDES THE [facility] Last Admin: 05/30/21 08:16 Dose: 50 mg Documented by: Doxepin HCl (Doxepin Hcl 10 Mg Capsule) 10 mg PO BEDTIME COUNT INCLUDES THE [facility] Last Admin: 05/29/21 20:55 Dose: 10 mg Documented by: Doxycycline Hyclate (Doxycycline Hyclate 100 Mg Tablet) 100 mg PO Q12H COUNT INCLUDES THE [facility] Last Admin: 05/30/21 08:17 Dose: 100 mg Documented by: Enoxaparin Sodium (Enoxaparin Sodium 100 Mg/Ml Syringe) 85 mg SUBCUT Q12H COUNT INCLUDES THE [facility] Last Admin: 05/30/21 09:06 Dose: 85 mg Documented by: Escitalopram Oxalate (Escitalopram Oxalate 10 Mg Tablet) 10 mg PO BEDTIME COUNT INCLUDES THE [facility] Gabapentin (Gabapentin 300 Mg Capsule) 300 mg PO BID COUNT INCLUDES THE [facility] Last Admin: 05/30/21 08:17 Dose: 300 mg Documented by: Gabapentin (Gabapentin 300 Mg Capsule) 300 mg PO DAILY PRN PRN Reason: anxiety Last Admin: 05/30/21 16:52 Dose: 300 mg Documented by: Haloperidol (Haloperidol 5 Mg Tablet) 5 mg PO Q4H PRN PRN Reason: agitation Last Admin: 05/29/21 20:57 Dose: 5 mg Documented by: Hydroxyzine HCl (Hydroxyzine Hcl 50 Mg Tablet) 50 mg PO TID PRN PRN Reason: Anxiety Last Admin: 05/29/21 20:57 Dose: 50 mg Documented by: Lamivudine (Lamivudine 150 Mg Tablet) 300 mg PO DAILY COUNT INCLUDES THE [facility] Last Admin: 05/30/21 08:16 Dose: 300 mg Documented by: Lorazepam (Lorazepam 1 Mg Tablet) 2 mg PO Q4H PRN PRN Reason: agitation Lurasidone HCl (Lurasidone Hcl 40 Mg Tablet) 40 mg PO BEDTIME COUNT INCLUDES THE [facility] Last Admin: 05/29/21 21:43 Dose: 40 mg Documented by: Magnesium Hydroxide (Milk Of Magnesia 30 Ml Oral.Susp) 30 ml PO DAILY PRN PRN Reason: Constipation Melatonin (Melatonin 3 Mg Tablet) 9 mg PO BEDTIME PRN PRN Reason: Insomnia Last Admin: 05/29/21 20:58 Dose: 9 mg Documented by: Nicotine Polacrilex (Nicotine Polacrilex 2 Mg Gum) 4 mg BUCCAL Q2H PRN PRN Reason: Nicotine Cravings Polyethylene Glycol (Polyethylene Glycol 3350 17 Gm Powd.Pack) 17 gm PO DAILY TERRELL Last Admin: 05/30/21 08:19 Dose: Not Given Documented by: Senna (Sennosides 8.6 Mg Tablet) 17.2 mg PO BEDTIME PRN PRN Reason: Constipation Last Admin: 05/29/21 20:58 Dose: 17.2 mg Documented by: Valacyclovir HCl (Valacycyclovir Hcl 500 Mg Tablet) 500 mg PO BID COUNT INCLUDES THE [facility] Last Admin: 05/30/21 08:16 Dose: 500 mg Documented by: Allergies Allergies Allergy/AdvReac Type Severity Reaction Status Date / Time No Known Allergies Allergy Verified 05/22/21 18:42 Assessment & Plan Assessment & Plan (1) PTSD (post-traumatic stress disorder): Status: Acute Code(s): F43.10 - Post-traumatic stress disorder, unspecified (2) RICKY (generalized anxiety disorder): Status: Acute Code(s): F41.1 - Generalized anxiety disorder (3) Panic disorder without agoraphobia: Status: Acute Code(s): F41.0 - Panic disorder [episodic paroxysmal anxiety] Assessment and Plan: Per previous psych consult, it was noted that Patient is presenting with hypomanic features, question of bipolar disorder as she is prescribed latuda and reports poor sleep. However, pt reports she is diagnosed with PTSD and De pression, she denies having bipolar diagnosis. Of note, she is also prescribed adderall for ADHD and disclosed significant trauma history- as such pt's sx of anxiety, mistrust, hyperarousal, pressured speech, hypersexual bx, and perseveration may be a function of severe PTSD, ADHD, and BPD traits. Plan: Continue lovenox, ordered observation protocols (PT, PTT, CBC, Cr). Ordered D Dimer. Ordered Chest XR due to PE. Continue on med regimen for HIV diagnosis. On [facility], I saw pt for a psych consult and pt was restarted on gabapentin 300 mg BID to target anxiety, mood stability due to reported past benefit (pt reports she is supposed to be on this medication as part of her OP regimen, indeed it w as last filled on 03/15/21). At the time of psych consult, I felt pt was presenting with symptoms that appeared to be a function of severe PTSD and pt denied hx of judith on previous trials of SSRI/SNRI- this assessment was based on clinical interview and review of chart. I started pt on lexapro 10 mg daily for PTSD, depression, and anxiety. I would further recommend discontinuing wellbutrin, as this may be too activating for pt and she is already on adderall XR 30 mg QAM. There is still a question of pt having a r/o of bipolar II disorder, I will defer to primary psych team to assess- in which case, it would be advised to discontinue serotonergic medication. Of note pt sx are not worse on lexapro 10 mg, which was started on 05/25. Continue on OP med regimen of adderall XR 30 mg QAM for ADHD, doxepin 10 mg QHS for insomnia, wellbutrin XL 150 mg QAM for depression, diazepam 10 mg BID PRN anxiety, and latuda 40 mg QD for deperssion and mood stability. Monitor response to medications. Monitor for safety in the milieu. Discharge on stabilization. Patient seen. Chart reviewed. Discussed with team. Obtain collateral contact info?as needed 05/29/21: Continue current regime Collateral contact with providers. 05/30/21: Continue current regime Message left for OP team Pt with concerns about her medical issues-Hospitalist consult appreciated. Pt planning discharge for 05/31/21. I spent 60 minutes with the patient and/or on the patient floor today, greater than?50% of which was spent counseling/coordinating care. Patient educated on: medication risk/benefits, therapeutic strategies and medical condition Informed Consent: understands Reason for contiued inpatient stay Substantial Risk for: inability to function and rapid decompensation
[2021-05-30 18:00] VITALS: BP 136/88; PULSE 90; RESP 18; TEMP 36.8; O2SAT 100
[2021-05-30] MEDS: Lurasidone HCl 40 MG TABLET PO (21:47)
[2021-05-30] MEDS: Doxepin HCl 10 MG CAPSULE PO (21:47)
[2021-05-30] MEDS: Escitalopram Oxalate 10 MG TABLET PO (21:47)
[2021-05-30] MEDS: LORazepam 1 MG TABLET 2 MG PO (21:53)
[2021-05-30] MEDS: Melatonin 3 MG TABLET 9 MG PO (21:55)
[2021-05-30] MEDS: HaloperidoL 5 MG TABLET PO (21:56)
[2021-05-30] MEDS: Sennosides 8.6 MG TABLET 17.2 MG PO (21:57)
[2021-05-30] MEDS: bisacodyL 5 MG TABLET.DR PO (21:58)
[2021-05-30] MEDS: hydrOXYzine HCL 50 MG TABLET PO (21:58)
[2021-05-31] MEDS: Gabapentin 300 MG CAPSULE PO (08:15)
[2021-05-31] MEDS: buPROPion HCl XL 150 MG TAB.ER.24H PO (08:15)
[2021-05-31] MEDS: Dolutegravir Sodium 50 MG TABLET PO (08:15)
[2021-05-31] MEDS: Docusate Sodium 100 MG CAPSULE PO (08:15)
[2021-05-31] MEDS: Dextroamphetamine/Amphetamine XR 10 MG CAP.ER.24H 30 MG PO (08:15)
[2021-05-31] MEDS: lamiVUDine 150 MG TABLET 300 MG PO (08:15)
[2021-05-31] MEDS: diazePAM 5 MG TABLET 10 MG PO (10:00)
[2021-05-31] MEDS: HYDROcodone Bit/Acetam 5/325 TABLET 1 TAB PO (10:01)
[2021-05-31] MEDS: Enoxaparin Sodium 100 MG/ML SYRINGE 85 MG SUBCUT (10:10)
--- NOTE | 2021-06-03 07:11 | P.DS_ITS ---
DS: Providers Provider Date of Service: 05/31/21 Date of admission: 05/28/21 20:45 Date of discharge: 05/31/21 Primary care physician: Matilde Schuster MD Admitting clinician: Melba Woods Attending physician on admission: Luis Enrique Hernández Consults: 05/29/21 13:14 Consult to Hospitalist Routine Consulting Provider: Hospitalist Reason For Exam: S/P IV site neck-pt reporting pain,?infection. Attending physician on discharge: Luis Enrique Hernández Discharging clinician: Beatriz Delgadillo DS: Diagnosis Discharge Diagnosis (1) PTSD (post-traumatic stress disorder): Status: Acute (2) RICKY (generalized anxiety disorder): Status: Acute (3) Panic disorder without agoraphobia: Status: Acute DS: Medications Discharge Medications Home Medications: Home Medications Medication Instructions Recorded Confirmed docusate sodium 100 mg capsule 1 cap PO BID 05/23/21 05/23/21 hydroxyzine pamoate 50 mg capsule 1 cap PO TID PRN 05/23/21 05/23/21 lurasidone 40 mg tablet (Latuda) 1 tab PO BEDTIME 05/23/21 05/23/21 valacyclovir 500 mg tablet 500 mg PO BID 05/23/21 05/23/21 Previous Rx's Medication Instructions Recorded dolutegravir 50 mg-lamivudine 300 1 tab PO DAILY #30 tab 05/28/21 mg tablet (Dovato) doxycycline hyclate 100 mg tablet 100 mg PO Q12H #10 tab 05/28/21 enoxaparin 120 mg/0.8 mL 120 mg (0.8 mL) SUBCUT DAILY #30 05/28/21 subcutaneous syringe (Lovenox) syringe gabapentin 300 mg capsule 300 mg PO BID #60 cap 05/28/21 polyethylene glycol 3350 17 gram 17 g PO DAILY #30 ea 05/28/21 oral powder packet bupropion HCl 100 mg tablet,12 hr 1 tab PO BID #14 tab 05/31/21 sustained-release dextroamphetamine-amphetamine ER 1 cap PO BEDTIME #7 cap 05/31/21 30 mg 24hr capsule,extend release (Adderall XR) diazepam 10 mg tablet 1 tab PO BID PRN #14 tab 05/31/21 doxepin 10 mg capsule 10 mg PO BEDTIME #0 cap 05/31/21 doxepin 10 mg capsule 10 mg PO DAILY PRN #7 cap 05/31/21 doxycycline hyclate 100 mg tablet 100 mg PO Q12H #14 tab 05/31/21 enoxaparin 100 mg/mL subcutaneous 85 mg (0.85 mL) SUBCUT Q12H #0 ml 05/31/21 syringe escitalopram oxalate 10 mg tablet 10 mg PO BEDTIME #7 tab 05/31/21 gabapentin 300 mg capsule 300 mg PO BID #0 cap 05/31/21 gabapentin 300 mg capsule 300 mg PO DAILY PRN #0 cap 05/31/21 hydrocodone 5 mg-acetaminophen 325 1 tab PO Q8H PRN #14 tab 05/31/21 mg tablet lamivudine 150 mg tablet 300 mg PO DAILY #0 tab 05/31/21 melatonin 3 mg tablet 9 mg PO BEDTIME PRN #0 tab 05/31/21 nicotine (polacrilex) 2 mg gum 4 mg BUCCAL Q2H PRN #60 ea 05/31/21 Mental Status Exam Mental Status Exam Patient Appearance: Appropriate Patient Orientation: Person, Place, Time and Situation Level of Consciousness: Alert Patient Behavior: Talkative and Good Eye Contact Mood Description: Constricted, Fearful (worry about medical condition) and Angry (irritable at times) Affect Description: Constricted Patient Cognition Impaired: No Ability to Follow Directions: Good Speech Pattern: Spontaneous Speech Memory Description: Intact Hallucinations: None Delusions: Not Present Thought Process: Goal Oriented Thought Content: positive for Goal Oriented Depressive Symptoms: Increased Anxiety, Increased Irritability, Difficulty Sleeping and Thoughts of /Suicide (denies) Abnormal Motor Activity Signs and Symptoms: Restlessness Judgement: Good Data Data Completed and Pending Completed studies during hospitalization [Text1]: 05/29/21 05/29/21 05/29/21 08:09 08:09 08:09 WBC 2.9 L RBC 3.76 L Hgb 12.1 Hct 34.7 L MCV 92.3 MCH 32.2 MCHC 34.9 RDW 11.1 Plt Count 191 MPV 11.2 Absolute Nucleated RBC 0.000 Nucleated RBC % (auto) 0.0 PT 12.4 INR 1.1 APTT 42.8 H D-Dimer 408 BUN 13 Creatinine 0.79 Estim Creat Clear Calc TNP Estimated GFR > 60 Estimat Average Glucose Hemoglobin A1c % Magnesium 2.0 Triglycerides 77 Cholesterol 187 LDL Cholesterol, Calc 125 HDL Cholesterol 47 Vitamin B12 Folate TSH 2.24 Free T4 0.81 05/29/21 05/29/21 08:09 08:09 WBC RBC Hgb Hct MCV MCH MCHC RDW Plt Count MPV Absolute Nucleated RBC Nucleated RBC % (auto) PT INR APTT D-Dimer BUN Creatinine Estim Creat Clear Calc Estimated GFR Estimat Average Glucose 94 Hemoglobin A1c % 4.9 Magnesium Triglycerides Cholesterol LDL Cholesterol, Calc HDL Cholesterol Vitamin B12 659 Folate 9.7 TSH Free T4 Imaging Diagnostic Imaging Impressions Chest X-Ray 05/29/21 00:31 IMPRESSION: No evidence for acute disease in the chest. DS: Summary Hospital Course Hospital Course: Admission to adult psychiatry in transfer from medicine to address symptom exacerbation of PTSD, anxiety, depression. Care plan, medication regime and plan of care prior to admission were reviewed. Education was provided regarding m edical condition by hospitalist team, management of symptoms, medications and side effects. Nursing and medical social worker worked extensively with patient on collateral contacts, plan of care, education regarding management of symptoms, medications and discharge planning. Medications were unchanged, Lexapro was initiated upon admission. Time spent discussing smoking cessation with patient: 3 to 10 minutes Status at Discharge Cognitive/behavioral status at discharge: non-suicidal, non-psychotic Functional status at discharge: independent ambulation Overall status at discharge: patient is back to baseline Time Spent with Patient Time attestation: Total time spent providing and/or coordinating discharge services: 60 Time spent: Greater than 30 minutes Discharge Plan Discharge Anticipated Discharge Date/Time: 05/31/21 14:27 Patient Disposition: Home, Self-Care Discharge Diagnosis: PTSD Generalized Anxiety Disorder Referrals: Matilde Schuster MD (primary care provider) [Other] - 06/05/21 11:30 am (This appointment is in-office) Emeli Worrell (psychiatric medication evaluation) [Other] - 06/06/21 2:00 pm (This appointment is in-office) Discharge Medications: New nicotine (polacrilex) 2 mg Gum 4 mg buccal Q2H PRN (Reason: Nicotine Cravings) Qty: 60 RF: 0 lamivudine 150 mg Tablet 300 mg PO DAILY Qty: 0 RF: 0 doxycycline hyclate 100 mg Tablet 100 mg PO Q12H Qty: 14 RF: 0 enoxaparin 100 mg/mL Syringe 85 mg subcut Q12H Qty: 0 RF: 0 hydrocodone-acetaminophen 5-325 mg Tablet 1 tab PO Q8H PRN (Reason: severe pain) Qty: 14 RF: 0 melatonin 3 mg Tablet 9 mg PO BEDTIME PRN (Reason: Insomnia) Qty: 0 RF: 0 doxepin 10 mg Capsule 10 mg PO BEDTIME Qty: 0 RF: 0 gabapentin 300 mg Capsule 300 mg PO BID Qty: 0 RF: 0 gabapentin 300 mg Capsule 300 mg PO DAILY PRN (Reason: anxiety) Qty: 0 RF: 0 escitalopram oxalate 10 mg Tablet 10 mg PO BEDTIME Qty: 7 RF: 0 Continued hydroxyzine pamoate 50 mg capsule 1 cap PO TID PRN (Reason: Anxiety) RF: 0 valacyclovir 500 mg Tablet 500 mg PO BID RF: 0 docusate sodium 100 mg capsule 1 cap PO BID RF: 0 Latuda 40 mg tablet 1 tab PO BEDTIME RF: 0 polyethylene glycol 3350 17 gram Powder In Packet 17 g PO DAILY Qty: 30 RF: 0 gabapentin 300 mg Capsule 300 mg PO BID Qty: 60 RF: 0 doxycycline hyclate 100 mg Tablet 100 mg PO Q12H Qty: 10 RF: 0 Dovato 50-300 mg tablet 1 tab PO DAILY Qty: 30 RF: 1 enoxaparin [Lovenox] 120 mg/0.8 mL syringe 120 mg subcut DAILY Qty: 30 RF: 2 doxepin 10 mg capsule 10 mg PO DAILY PRN (Reason: Sleep) Qty: 7 RF: 0 bupropion HCl 100 mg tablet sustained-release 12 hr 1 tab PO BID Qty: 14 RF: 0 diazepam 10 mg tablet 1 tab PO BID PRN (Reason: Anxiety) Qty: 14 RF: 0 dextroamphetamine-amphetamine [Adderall XR] 30 mg capsule,extended release 24hr 1 cap PO BEDTIME Qty: 7 RF: 0 Discharge Orders: Discharge Order (Routine); Ordered 05/31/21 Ordered By: Beatriz Delgadillo Diet: advance to usual diet Activity on Discharge: As tolerated Stand Alone Forms: Patient Portal Discharge page, Community Support Care Plan Goals: Mood Stabilization Health Concerns: PTSD Generalized Anxiety Disorder Plan of Treatment: Attend medical and psychiatric follow up appointments Take medications as directed Call and or return as needed Medication prescribing has been completed in coordination with [address]. You have been given a weeks worth of psychiatric medications until your appointment on 06/06. [facility] reports you have Gabapentin, Latuda and Melatonin prescriptions waiting for you at the pharmacy from your out pt team Assessment: non suicidal non psychotic Discharge Date/Time: 05/31/21 11:00
== END 2021-05-31 11:00 | disposition home or self-care (01) | DRG 756 ==
PROVIDERS: Admitting Provider Registered Nurse; PCP Family Medicine; Visit Provider Clinical Nurse Specialist Psychiatric/Mental Health, Adult
DX: F41.0 Panic disorder [episodic paroxysmal anxiety] (principal); F43.10 Post-traumatic stress disorder, unspecified; T82.848A Pain due to vascular prosthetic devices, implants and grafts, initial encounter; R22.1 Localized swelling, mass and lump, neck; K21.9 Gastro-esophageal reflux disease without esophagitis; Z21 Asymptomatic human immunodeficiency virus [HIV] infection status; Z86.718 Personal history of other venous thrombosis and embolism; Z87.891 Personal history of nicotine dependence; Z79.899 Other long term (current) drug therapy
CPT/HCPCS: 36415; 71045; 80061; 82565; 82607; 82746; 83036; 83735; 84439; 84443; 84520; 85027; 85379; 85610; 85730; J1650; Q0163